=== PATIENT | female | born 1975 | race Caucasian/White ===

== ENCOUNTER → 2016-04-10 | Outpatient (CLI) | payer MEDICARE, MEDICAID ==
[~2016-04-10] MED LIST: /DULO30CA; /FENT25PA TD; /FENT50PA; /LAMO10TA; /MOXI40TA OR; /ONDA4TA PO; /PREG50CA PO; ABIL10TA OR; ACET20VL PO; ADDE20CA PO; ADDE30CA PO; ADVAIR; ADVAIR OR; ASPI81CH PO; ATEN50TA2 PO; ATIV1TAB2; ATIV1TAB2 OR; ATRIPLA; BOTULINUM INJ 100 UNITS (J0585) IM ONE; BUPR15TA; BUPR15TA OR; BUTA1CAP PO; BUTR10DI2 TOP; CALCTAB22 OR; CETI10TA; CETI10TA OR; CHROMIUM PICOLINATE; CLON0.5T PO; COMBIVIR PO; COMPAZINE; COQ1200C2 PO; DIAZ5TAB PO; DICL50TA2 PO; DIFL150T PO; DIPHENHIST; DIPHENHIST OR; FIORCAP7 PO; FIORICET; FIORICET OR; FIORTAB PO; FLEXERIL; GABA PO; GINS100C2 PO; GINSING OR; IBUP200T2 PO; IBUP600T OR; IMIT4KIT SC; IMIT50TA PO; IMIT6INJ; IMIT6INJ IJ; IMIT6INJ SC; ISENTRESS PO; LASI20TA; LASI20TA OR; LASI20TA PO; LINZ290C PO; LIOT5TAB PO; LITH150C PO; LORA1TAB PO; MAGN500T5 PO; MELA0.02 PO; MELA5TAB13 PO; MELOPOW; MELOPOW OR; MIREIUD IU; MORP10SU PR; MS C15TA5 OR; MS C200T PO; MULTCAP PO; N-ACCAP PO; OXYCO5TA PO; PAXI20TA OR; PREG50CA PO; PRIL20CA PO; PROBCAP4 PO; PROCHLORPERAZINE; PROCHLORPERAZINE OR; PROTPAK PO; PROV90AE; PROV90AE IN; Prochlorperazine PO; RHINOCORT; RIBO400T PO; ROZEREM; ROZEREM OR; SAVELLA; SAVELLA OR; SILVER PO; SING10TA31; SING10TA31 OR; SING4GRA PO; SOMA350T; SOMA350T PO; STRITAB PO; SUDA30TA; SUDA30TA OR; SUDA30TA PO; SUMA125TA; SYNT150T; SYNT150T OR; TENO1TAB PO; TOPA200T PO; TOPI200T; TOPI200T OR; TRAM50TA2; TRAM50TA2 PO; ULTR50TA PO; VICO5TAB; VICO5TAB OR; VICODINES TAB OR; VOLT1GEL EX; WELL100T2; XANA0.5T PO; ZANA4CAP; ZANA4CAP OR; ZINC220T2; ZOLO100T; ZOLO50TA PO; [UNRECOGNIZED DRUG - CODE] PO; [UNRECOGNIZED DRUG - OTHER]; [UNRECOGNIZED DRUG - OTHER] OR; [UNRECOGNIZED DRUG - OTHER] OR; [UNRECOGNIZED DRUG - OTHER] PO; [UNRECOGNIZED DRUG - OTHER] PO; ambien PO; diazePAM 5 MG TAB As Ordered ONE; oxyCODONE 5MG TAB As Ordered ONE; oxycodone PO; rozerem PO; topamax PO
--- NOTE | 2016-04-15 01:13 | ECWPNPC ---
PATIENT NAME: DEANDRA BREWER : 1975 GENDER: FEMALE VISIT DATE: 04/10/2016 DISCHARGE DATE: 04/10/16 1458 VISIT LOCKED DATE TIME: PHYSICIAN: DOLORES VILLARREAL RESOURCE: DOLORES VILLARREAL REASON FOR APPOINTMENT 1. BOTOX-MIGRAINES CURRENT MEDICATIONS TAKING CARISOPRODOL 350 MG TABLET 1 TABLET ORALLY Q 8 HRS NEEDED MDD=2, NOTES: 04/10/16@0600 TAKING BUTRANS 7.5 MCG/HR PATCH WEEKLY 1 PATCH TO SKIN TRANSDERMAL 1 PATCH Q 7 DAYS MDD 1 PATCH Q 7 DAYS, NOTES: 04/10/16 ON TAKING OXYCODONE HCL 5 MG TABLET 1 TABLET NEEDED ORALLY EVERY 6 HOURS NEEDED FOR PAIN MDD3, NOTES: 04/10/16@0200 TAKING IBUPROFEN 800 MG TABLET 1 TABLET ORALLY WITH FOOD THREE TIMES A DAY NEEDED FOR PAIN MDD3, NOTES: 04/10/16@0600 TAKING GENVOYA [phone] MG TABLET DIRECTED ORALLY ONCE DAILY, NOTES: 04/09/16@1999 TAKING CYTOMEL 10 MG TABLET 1 TABLET ON AN EMPTY STOMACH ORALLY ONCE A DAY, NOTES: 04/10/16@ 0600 TAKING SYNTHROID 150 MCG TABLET 1 TABLET ORALLY ONCE A DAY, NOTES: 04/10/15@ 0600 TAKING CLONAZEPAM 0.5 MG TABLET 1 TABLET ORALLY BID / MMD#2, NOTES: 04/10/16@0200 TAKING ADDERALL XR 30 MG CAPSULE EXTENDED RELEASE 24 HOUR 1 CAPSULE ORALLY DAILY, NOTES: 04/10/15 0600 TAKING OXYCODONE HCL 5 MG TABLET 1 TABLET ORALLY EVERY 6 -8 HRS PRN PAIN MDD=3, NOTES: 04/10/16@1999 TAKING ONDANSETRON 4 MG TABLET DISPERSIBLE 1 TABLET ON THE TONGUE AND ALLOW TO DISSOLVE ORALLY EVERY 8 HRS NEEDED, NOTES: UNKNOWN TAKING MIRENA 20 MCG/24HR INTRAUTERINE DEVICE INTRAUTERINE , NOTES: IN PLACE TAKING [id number] 50-300-40 MG CAPSULE 1 CAPSULE NEEDED ORALLY EVERY 6 HRS PRN, NOTES: 4-5 DAYS AGO TAKING SUDAFED 30 MG TABLET 1 TABLET NEEDED ORALLY EVERY 6 HRS PRN, NOTES: NONE LATELY TAKING SALINE NASAL SPRAY 0.65 % SOLUTION 2 DROPS IN EACH NOSTRIL NEEDED NASALLY EVERY 2 HRS, NOTES: NONE LATELY TAKING VITAMIN D (ERGOCALCIFEROL) 65843 UNIT CAPSULE 1 CAPSULE ORALLY WEEKLY, NOTES: 04/06/16@1500 TAKING ZYRTEC 1 TAB ORAL NEEDED, NOTES: NONE LATELY TAKING PATADAY 0.2 % SOLUTION DIRECTED OPHTHALMIC ONCE DAILY, NOTES: NONE LATELY TAKING QNASL 1 AEROSOL SPRAY DIRECTED NASALLY TWICE A DAY, NOTES: NONE LATELY TAKING KETOROLAC TROMETHAMINE 10 MG TABLET 1 TABLET NEEDED ORALLY EVERY 6 HRS PRN FOR PAIN, NOTES: NONE LATELY TAKING FLUCONAZOLE 150 MG TABLET TAKE ONE TABLET BY MOUTH WEEKLY NEEDED, NOTES: NONE LATELY TAKING BENADRYL 25 MG TABLET 1 TABLET NEEDED ORALLY BEFORE BEDTIME, NOTES: 05/04/16@1500 TAKING ATENOLOL 50 MG TABLET 1 TABLET ORALLY ONCE A DAY, NOTES: 04/10/16@0600 TAKING SINGULAIR 10 MG TABLET 1 TABLET IN THE EVENING ORALLY ONCE A DAY, NOTES: MONTHS AGO TAKING ZOLOFT 100 MG TABLET 2 ORALLY ONCE A DAY, NOTES: 04/09/16@2000 TAKING GABAPENTIN 100 MG CAPSULE ORALLY THREE TIMES DAILY, NOTES: @0600 TAKING TRAZODONE HCL 50 MG TABLET 1 TABLET AT BEDTIME NEEDED ORALLY ONCE A DAY, NOTES: 04/05/16@1000 NOT-TAKING SENOKOT S 8.6-50 MG TABLET 2 TABLET IN THE EVENING NEEDED ORALLY BEFORE BEDTIME NOT-TAKING DULCOLAX 5 MG TABLET DELAYED RELEASE 1 TABLET NEEDED ORALLY ONCE A DAY PRN, NOTES: NONE-NEW TODAY NOT-TAKING VALIUM 10 MG TABLET 1 TABLET NEEDED ORALLY 1 TAB 1HR PRE PROC. MDD1, NOTES: 11/26/15 1400 NOT-TAKING KETOROLAC TROMETHAMINE 10 MG TABLET 1 TABLET NEEDED ORALLY FOR PAIN EVERY 8 HRS MDD3 NOT-TAKING GABAPENTIN 100 MG CAPSULE DIRECTED ORALLY BEFORE BEDTIME NOT-TAKING MULTI FOR HER 1 TABLET 1 TAB ORALLY ONCE DAILY, NOTES: 1 WEEK AGO NOT-TAKING ADRENAL C FORMULA 30 MG TABLET 1 TAB ORALLY ONCE DAILY, NOTES: 11/26/15 28935 NOT-TAKING MULTI COMPLETE 1 _ 1 TAB ORALLY ONCE DAILY DISCONTINUED CETIRIZINE HCL 10 MG TABLET 1 TABLET ORALLY ONCE A DAY DISCONTINUED ATENOLOL 50 50MG TABLET DIRECTED ORAL DAILY DISCONTINUED ZOFRAN 8 MG TABLET 1 TABLET ORALLY ONCE A DAY DISCONTINUED GABAPENTIN 100 MG CAPSULE ORALLY DISCONTINUED GABAPENTIN 300 MG TABLET ORALLY MEDICATION LIST REVIEWED AND RECONCILED WITH THE PATIENT PAST MEDICAL HISTORY HIV POSITIVE 1997, TREATED WITH COMBIVIR DURING HER PREGNANCIES, ATRIPLA GAVE HER ABDOMINAL PAIN 09/[address] ROWAN FROM [facility] DISCONTINUED/ADERALL FOR ADD/ KATHRYN ANXIETY 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 ASSESSMENTS CHRONIC MIGRAINE WITHOUT AURA, NOT INTRACTABLE, WITHOUT STATUS MIGRAINOSUS - G43.709 (PRIMARY) PROCEDURES PN BOTOX INJECTIONS FIRST INJECTION PRE PROCEDURE DIAGNOSIS CHRONIC MIGRAINE HEADACHES. POST PROCEDURE DIAGNOSIS CHRONIC MIGRAINE HEADACHES. PROCEDURE BOTOX INJECTION AT THE HEAD, NECK AND SHOULDERS SURGEON DR. DOLORES VILLARREAL FEDERAL LAW CLERK NONE ANESTHESIA NONE PRE PROCEDURE NOTE THE PATIENT WITH HISTORY OF CHRONIC MIGRAINE HEADACHES. I EVALUATE THE PATIENT AND REVIEWED THE CHART. I WENT OVER THE RISKS, ALTERNATIVES, AND BENEFITS ASSOCIATED WITH THIS PROCEDURE. THE PATIENT WOULD LIKE TO PROCEED AND GIVE CONSENT TO PERFORMED THE PROCEDURE. THE PATIENT DENIES UNEXPLAINABLE WEIGHT LOSS, FEVER, CHILLS, OR NEW CHANGES IN URINARY OR BOWEL CONTROL. THE PATIENT EXPRESSED SUFFERING OF HEADACHES MORE THAN 16 DAYS IN A MONTH WITH A TOTAL OF 30 HEADACHES A MONTH. THESE HEADACHES LAST MORE THAN 4 HOURS PER DAY. THE PATIENT HAS USED THE MEDICATIONS LISTED IN THE CHART TO TREAT THE HEADACHES FOR MANY MONTHS AND THE HEADACHES PERSIST DESCRIBED ABOVE DESCRIPTION OF PROCEDURE THE PATIENTS WAS BROUGHT TO THE PROCEDURE ROOM AND PLACED IN THE SUPINE POSITION. I CHECKED LATERALITY AND THE AREAS WHERE THE PROCEDURE WAS GOING TO BE PERFORMED WITH THE PATIENT AND THE SUPPORTING STAFF AT THE MOMENT OF THE TIME OUT IN THE PROCEDURE ROOM. FOR THE PROCEDURE I USED A SOLUTION OF 5 UNITS OF BOTOX PER EACH 0.1 ML OF THE SOLUTION. I USED A 30-GAUGE NEEDLE TO INJECT THE SOLUTION AT THE SELECTED LOCATIONS. I INJECTED FIRST THE RIGHT AND LEFT AIR CONDITIONING SPECIALIST MUSCLES. THE LANDMARK FOR BOTH INJECTIONS WAS APPROXIMATELY 1 CM ABOVE THE SUPERIOR MEDIAL EDGE OF THE EYEBROW. AFTER THESE TWO INJECTIONS, I INJECTED THE PROCERUS MUSCLE AT THE MIDLINE POINT BETWEEN THESE FIRST TWO INJECTIONS. THEN I PROCEEDED TO INJECT THE RIGHT AND LEFT FRONTALIS MUSCLE. TWO INJECTIONS WERE DONE IN EACH SIDE. THE FIRST INJECTION WAS DONE APPROXIMATELY 2 CM ABOVE THE FIRST INJECTION OF THE AIR CONDITIONING SPECIALIST. THE SECOND INJECTION WAS DONE APPROXIMATELY 1.5 CM LATERAL TO THIS FIST INJECTION OF THE FRONTALIS OF EACH SIDE. AFTER THE INJECTIONS OVER THE FOREHEAD WERE DONE, THE PATIENT'S HEAD WAS TURNED TO THE LEFT SIDE AND WE STARTED TO WORK WITH THE RIGHT TEMPORALIS MUSCLE. FIRST INJECTION WAS DONE IN A VERTICAL LINE OF THE TRAGUS APPROXIMATELY 3 CM ABOVE THE TRAGUS. THE SECOND INJECTION WAS DONE APPROXIMATELY 2 CM ABOVE THE FIRST INJECTION. THE THIRD INJECTION WAS DONE APPROXIMATELY 1 CM FRONT ROBERTSON FROM THIS VERTICAL LINE CREATED AT THE LEVEL OF THE TRAGUS, JAIL BETWEEN THESE TWO INJECTIONS. THE FOURTH INJECTION WAS DONE APPROXIMATELY 1.5 CM BACK FROM THE SECOND INJECTION TO THE TEMPORALIS IN LINE TO THE MIDPORTION OF THE EAR. THEN, WE PROCEEDED TO INJECT THE LEFT TEMPORALIS MUSCLE. WE CLEANED THE AREA WITH ALCOHOL AND PROCEEDED TO PERFORM THE SAME FOR INJECTIONS DESCRIBED ABOVE BUT IN THE LEFT TEMPORALIS MUSCLE USING THE SAME LANDMARKS. AFTER THESE INJECTIONS WERE DONE, THE PATIENT WAS SEATED. FIRST, WE STARTED TO INJECT THE LEFT AND RIGHT OCCIPITALIS MUSCLE. I INJECTED AT THE FOLLOWING PLACES IN THE RIGHT AND LEFT MUSCLE. THE FIRST INJECTION WAS DONE AT THE MIDPOINT POSITION BETWEEN THE MASTOID PROCESS AND THE INION OF THE OCCIPITAL PROTUBERANCE. THE SECOND INJECTION WAS DONE APPROXIMATELY 1.5 CM SUPERIOR AND LATERAL OF THIS POINT. THE THIRD INJECTION WAS DONE APPROXIMATELY 1.5 CM SUPERIOR AND MEDIAL TO THIS FIRST INJECTION. THEN, I PROCEEDED TO INJECT THE RIGHT AND LEFT PARASPINAL MUSCLES. LANDMARK OF THE INJECTION WERE APPROXIMATELY: FIRST INJECTION 3 CM BELOW THE INION AND 1 CM LATERAL TO THE MIDLINE AND SECOND INJECTION AT EACH SIDE WAS DONE APPROXIMATELY 1.5 CM SUPERIOR AND LATERAL OF THE FIRST INJECTION. THE LAST GROUP OF INJECTIONS WAS DONE OVER THE RIGHT AND LEFT TRAPEZIUS MUSCLE OVER THE SHOULDERS AREA. THE FIRST INJECTION WAS DONE AT THE MIDPOINT BETWEEN THE INFLECTION POINT BETWEEN THE NECK AND SHOULDER AND THE ACROMION. THE SECOND AND THIRD INJECTIONS WERE DONE APPROXIMATELY 2.5 CM LATERAL AND MEDIAL FROM THIS FIRST INJECTION. SAME TARGETS WERE USED IN THE RIGHT AND LEFT SIDE. IN TOTAL, I INJECTED 155 UNITS OF BOTOX. PROCEDURE WAS DONE WITHOUT EVIDENCE OF PARESTHESIA, PNEUMOTHORAX, OR ANY COMPLICATIONS. THE PATIENT TOLERATED THE PROCEDURE VERY WELL. THE PATIENT WAS SENT TO THE RECOVERY ROOM FOR OBSERVATIONS. INJECTIONS WERE DONE AFTER CLEANING WITH ALCOHOL, USING ASEPTIC TECHNIQUES POST PROCEDURE NOTE THE PROCEDURE DONE WAS DISCUSSED WITH THE PATIENT. THE PATIENT WILL BE SEEN IN A FOLLOW UP IN THE NEXT FEW WEEKS. INSTRUCTIONS WERE GIVEN, QUESTIONS WERE ANSWERED, AND THE PATIENT EXPRESSED UNDERSTANDING AND AGREES WITH THE PLAN PROCEDURE CODES 92445 CHEMODENERV MUSC MIGRAINE FOLLOW UP 3 WEEKS ELECTRONICALLY SIGNED BY DOLORES VILLARREAL MD ON 04/14/2016 AT 03:44 PM EST DISCLAIMER : THIS IS A VISIT SUMMARY EXTRACTED FROM THE [employer] CHART. IT IS NOT A COPY OF THE [employer] PROGRESS NOTE. LESLIE
== END ==
LOC: M PAIN 14:00
PROVIDERS: ATTEND Anesthesiology
DX: G43.709 Chronic migraine without aura, not intractable, without status migrainosus (principal); B20 Human immunodeficiency virus [HIV] disease; E03.9 Hypothyroidism, unspecified; F33.9 Major depressive disorder, recurrent, unspecified; F41.9 Anxiety disorder, unspecified; K82.9 Disease of gallbladder, unspecified; G43.909 Migraine, unspecified, not intractable, without status migrainosus; B00.9 Herpesviral infection, unspecified; Z91.013 Allergy to seafood; Z88.8 Allergy status to other drugs, medicaments and biological substances; Z79.891 Long term (current) use of opiate analgesic; Z79.1 Long term (current) use of non-steroidal anti-inflammatories (NSAID)
CPT/HCPCS: 64615; J0585

== ENCOUNTER → 2016-04-16 | Outpatient (CLI) | payer MEDICARE, MEDICAID ==
[~2016-04-16] MED LIST changes: -BOTULINUM INJ 100 UNITS (J0585) IM ONE; +BUPIVACAINE HCL 0.25% 30 ML VIAL As Ordered ONE; +ISOVUE-M 300 61% 15ML VIAL (Q9967) As Ordered ONE; +LIDOCAINE 1% SDV INJ 30 ML VIAL As Ordered ONE; +OXYC-517 PO; -OXYCO5TA PO; +TRIAMCINOLONE ACETONIDE SUSP 40 MG/ML VIAL (J3301) As Ordered ONE
--- NOTE | 2016-04-16 21:06 | REP ---
Fluoroscopic guidance for sacral coccygeal injection: 04/16/2016. Clinical history: Low back pain, sacral pain. Findings: Two images from C-arm fluoroscopy provided to Dr. Alcaraz of the pain clinic for sacral coccygeal steroid injection. Needle projects over the left of midline of the lower sacrum near the coccygeal junction. On the second image contrast is seen streaming away from the needle. Fluoroscopy time: 4-seconds Signed by Osito Amaya MD 04/17/2016 09:29 A
--- NOTE | 2016-04-19 01:22 | ECWPNPC ---
PATIENT NAME: DEANDRA BREWER : 1975 GENDER: FEMALE VISIT DATE: 04/16/2016 DISCHARGE DATE: 04/16/161917 VISIT LOCKED DATE TIME: PHYSICIAN: DOLORES VILLARREAL RESOURCE: DOLORES VILLARREAL REASON FOR APPOINTMENT 1. SIJ HISTORY OF PRESENT ILLNESS HISTORY OF PRESENT ILLNESS: PAIN THE PATIENT DESCRIBES THE PAIN... FALL RISK SCREENING: SCREENING :NO FALLS IN THE PAST YEAR CURRENT MEDICATIONS TAKING CARISOPRODOL 350 MG TABLET 1 TABLET ORALLY Q 8 HRS NEEDED MDD=2, NOTES: 04/15/161999 1/2 TAB TAKING BUTRANS 15 MCG/HR PATCH WEEKLY 1 PATCH TO SKIN TRANSDERMAL 1 PATCH Q 7 DAYS MDD 1 PATCH Q 7 DAYS, NOTES: 04/15/16 ON TAKING OXYCODONE HCL 5 MG TABLET 1 TABLET NEEDED ORALLY EVERY 6 HOURS NEEDED FOR PAIN MDD3, NOTES: 04/16/16699 TAKING IBUPROFEN 800 MG TABLET 1 TABLET ORALLY WITH FOOD THREE TIMES A DAY NEEDED FOR PAIN MDD3, NOTES: 04/16/161499 TAKING GENVOYA [phone] MG TABLET DIRECTED ORALLY ONCE DAILY, NOTES: 04/15/161999 TAKING CYTOMEL 10 MG TABLET 1 TABLET ON AN EMPTY STOMACH ORALLY ONCE A DAY, NOTES: 04/16/16699 TAKING SYNTHROID 150 MCG TABLET 1 TABLET ORALLY ONCE A DAY, NOTES: 04/16/16699 TAKING CLONAZEPAM 0.5 MG TABLET 1 TABLET ORALLY BID / MMD#2, NOTES: 04/16/16699 TAKING ADDERALL XR 30 MG CAPSULE EXTENDED RELEASE 24 HOUR 1 CAPSULE ORALLY DAILY, NOTES: 04/16/16699 TAKING ONDANSETRON 4 MG TABLET DISPERSIBLE 1 TABLET ON THE TONGUE AND ALLOW TO DISSOLVE ORALLY EVERY 8 HRS NEEDED, NOTES: UNKNOWN TAKING MIRENA 20 MCG/24HR INTRAUTERINE DEVICE INTRAUTERINE , NOTES: IN PLACE TAKING SUDAFED 30 MG TABLET 1 TABLET NEEDED ORALLY EVERY 6 HRS PRN, NOTES: 3-4 WEEKS AGO TAKING SALINE NASAL SPRAY 0.65 % SOLUTION 2 DROPS IN EACH NOSTRIL NEEDED NASALLY EVERY 2 HRS, NOTES: NONE LATELY TAKING VITAMIN D (ERGOCALCIFEROL) 00419 UNIT CAPSULE 1 CAPSULE ORALLY WEEKLY, NOTES: 04/13/161999 TAKING ZYRTEC 1 TAB ORAL NEEDED, NOTES: NONE LATELY TAKING PATADAY 0.2 % SOLUTION DIRECTED OPHTHALMIC ONCE DAILY, NOTES: NONE LATELY TAKING [id number] 50-300-40 MG CAPSULE 1 CAPSULE NEEDED ORALLY EVERY 6 HRS PRN, NOTES: 04/16/16 1300 TAKING QNASL 1 AEROSOL SPRAY DIRECTED NASALLY TWICE A DAY, NOTES: NONE LATELY TAKING KETOROLAC TROMETHAMINE 10 MG TABLET 1 TABLET NEEDED ORALLY EVERY 6 HRS PRN FOR PAIN, NOTES: NONE LATELY TAKING FLUCONAZOLE 150 MG TABLET TAKE ONE TABLET BY MOUTH WEEKLY NEEDED, NOTES: 04/11/16 TAKING BENADRYL 25 MG TABLET 1 TABLET NEEDED ORALLY BEFORE BEDTIME, NOTES: 2 WEEKS AGO TAKING ATENOLOL 50 MG TABLET 1 TABLET ORALLY ONCE A DAY, NOTES: TAKING SINGULAIR 10 MG TABLET 1 TABLET IN THE EVENING ORALLY ONCE A DAY, NOTES: NONE RECENT TAKING ZOLOFT 100 MG TABLET 2 ORALLY ONCE A DAY, NOTES: 04/15/1619990 TAKING GABAPENTIN 100 MG CAPSULE ORALLY THREE TIMES DAILY, NOTES: 04/16/16 0700 TAKING TRAZODONE HCL 50 MG TABLET 1 TABLET AT BEDTIME NEEDED ORALLY ONCE A DAY, NOTES: 04/15/161999 TAKING MONTELUKAST SODIUM 10 MG TABLET 1 TABLET IN THE EVENING ORALLY ONCE A DAY PRN, NOTES: NONE RECENT NOT-TAKING SENOKOT S 8.6-50 MG TABLET 2 TABLET IN THE EVENING NEEDED ORALLY BEFORE BEDTIME NOT-TAKING DULCOLAX 5 MG TABLET DELAYED RELEASE 1 TABLET NEEDED ORALLY ONCE A DAY PRN, NOTES: NONE-NEW TODAY NOT-TAKING VALIUM 10 MG TABLET 1 TABLET NEEDED ORALLY 1 TAB 1HR PRE PROC. MDD1, NOTES: 11/26/15 1400 NOT-TAKING KETOROLAC TROMETHAMINE 10 MG TABLET 1 TABLET NEEDED ORALLY FOR PAIN EVERY 8 HRS MDD3 NOT-TAKING GABAPENTIN 100 MG CAPSULE DIRECTED ORALLY BEFORE BEDTIME NOT-TAKING MULTI FOR HER 1 TABLET 1 TAB ORALLY ONCE DAILY, NOTES: 1 WEEK AGO NOT-TAKING ADRENAL C FORMULA 30 MG TABLET 1 TAB ORALLY ONCE DAILY, NOTES: 11/26/15 62158 NOT-TAKING MULTI COMPLETE 1 _ 1 TAB ORALLY ONCE DAILY DISCONTINUED OXYCODONE HCL 5 MG TABLET 1 TABLET ORALLY EVERY 6 -8 HRS PRN PAIN MDD=3, NOTES: 04/10/16@2000 MEDICATION LIST REVIEWED AND RECONCILED WITH THE PATIENT PAST MEDICAL HISTORY HIV POSITIVE 1997, TREATED WITH COMBIVIR DURING HER PREGNANCIES, ATRIPLA GAVE HER ABDOMINAL PAIN 09/[address] [facility] [facility] [facility]/ KATHRYN ANXIETY 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 LEFT ACL RUPTURE MIGRAINE BACTERIAL VAGINOSIS UTI TEETH EXTRACTION IUD MERENA 04/2013 AT PLANNED [facility] HERPES SIMPLEX TYPE II IGG POSITIVE SEROLOGY 06/2011 HERPES ORALIS ALLERGIES SEAFOOD: HIVES: ALLERGY ABACAVIR SULFATE: HEADACHE,MIGRAINE,NAUSEA: ALLERGY METAXALONE: WEIGHT GAIN, FATIGUE: SIDE EFFECTS SUMATRIPTAN: PANIC ATTACK, REBOUND HEADACHE: SIDE EFFECTS LYRICA: SWELLING IN LEG: SIDE EFFECTS SOCIAL HISTORY GENERAL: TOBACCO USE ARE YOU A:NONSMOKER ARE YOU A:NONSMOKER LEARNING BARRIERS / SPECIAL NEEDS ORIENTED TO PLAN OF CARE: PATIENT, PAIN MANAGEMENT PATIENT, ORIENTED TO PLAN OF CARE: PATIENT, PAIN MANAGEMENT PATIENT, ORIENTED TO PLAN OF CARE: PATIENT, PAIN MANAGEMENT PATIENT, ORIENTED TO PLAN OF CARE: PATIENT, PAIN MANAGEMENT PATIENT. NEW PATIENT PAIN DIARY TODAY'S VISITNOTES FROM 0-10, WHAT LEVEL IS YOUR PAIN TODAY?0 TODAY'S VISITNOTES FROM 0-10, WHAT LEVEL IS YOUR PAIN TODAY?0 PAIN CLINIC PFS, CLERGY, PUBLIC HEALTH REFERRALS PFS REFERRAL NEEDED?NO CLERGY REFERRAL NEEDED?NO PUBLIC HEALTH REFERRAL NEEDED?NO WAS THE PROVIDER NOTIFIED OF ANY PERTINENT INFO?NO PFS REFERRAL NEEDED?NO CLERGY REFERRAL NEEDED?NO PUBLIC HEALTH REFERRAL NEEDED?NO WAS THE PROVIDER NOTIFIED OF ANY PERTINENT INFO?NO PFS REFERRAL NEEDED?NO CLERGY REFERRAL NEEDED?NO PUBLIC HEALTH REFERRAL NEEDED?NO WAS THE PROVIDER NOTIFIED OF ANY PERTINENT INFO?NO PFS REFERRAL NEEDED?NO CLERGY REFERRAL NEEDED?NO PUBLIC HEALTH REFERRAL NEEDED?NO WAS THE PROVIDER NOTIFIED OF ANY PERTINENT INFO?NO REVIEW OF SYSTEMS CONSTITUTIONAL: ANY CHANGE IN YOUR MEDICAL CONDITION? NO . CHILLS NO . FEVER NO . INFECTION: DO YOU HAVE NEW INFECTIONS? NO . DO YOU HAVE HISTORY OF MRSA? NO . MUSCULOSKELETAL: ANY NEW PATTERNS OF PAIN OR NUMBNESS? YES, INCREASED PAIN, PINCHING FEELING, TINGLING RIGHT THIGH . GASTROENTEROLOGY: ANY NEW CHANGE IN BOWEL CONTROL? NO . GENITOURINARY: ANY NEW CHANGE IN BLADDER CONTROL? NO . IS THERE A CHANCE YOU COULD BE ? NO . HEMATOLOGY/LYMPH: DO YOU TAKE ANY BLOOD THINNERS? (FOR EXAMPLE- COUMADIN, PLAVIX, AGGRENOX, PLATEL, PRADAXA, OR XARELTO) NO . WHEN WAS YOUR LAST DOSE? DATE: TIME: . NEUROLOGY: HAVE YOU FALLEN IN THE PAST 6 MONTHS? YES, SEVERAL TIMES INJURYING ENTIRE BACK . ANY NEW EXTREMITY NUMBNESS OR WEAKNESS? YES TAIL BONE AND RIGHT THIGH . CARDIOLOGY: DO YOU HAVE A PACEMAKER OR DEFIBRILLATOR? NO . RESPIRATORY: HAVE YOU BEEN SICK IN THE PAST WEEK? NO . FEVER NO . FLU LIKE SYMPTOMS? NO . COUGH NO . INTEGUMENTARY: DO YOU HAVE ANY RASHES OR OPEN SORES? NO . ALLERGIC/IMMUNO: ARE YOU ALLERGIC TO SHELLFISH OR IV DYE? YES SEA FOOD--HIVES, THROAT ITCHY AND SLIGHT SWELLING . ANY NEW ALLERGIES? NO . PSYCHIATRIC: DO YOU HAVE THOUGHTS OF HURTING YOURSELF OR SOMEONE ELSE? NO . ARE YOU ABUSED, NEGLECTED, OR IN AN UNSAFE ENVIRONMENT? NO . ENDOCRINOLOGY: ARE YOU DIABETIC? NO . OTHER: DO YOU NEED ANY PRESCRIPTIONS? NO . IF YES, PLEASE LIST: ____ . ANY NEW PROBLEMS WITH YOUR MEDICATIONS? NO . WHEN DID YOU LAST EAT? ____04/15/16 2100 . WHEN DID YOU LAST DRINK? ____04/16/16 1500 . WHAT DID YOU LAST DRINK? ____WATER . NAME OF PERSON DRIVING YOU HOME? ___MANDY . DO YOU HAVE ANY OTHER QUESTIONS OR CONCERNS NO . REVIEWED BY: PROVIDER: . VITAL SIGNS WT 183.4 LBS, HT 66 IN, BMI 29.60 INDEX, BP R ARM 118/65, REPEAT BP L ARM 130/57, HR 60 /MIN, RR 18 /MIN, TEMP 96.0 F, OXYGEN SAT % 96, NA INITIALS TL 1619, REVIEWED BY: AD. ASSESSMENTS SPINAL ENTHESOPATHY, SACRAL AND SACROCOCCYGEAL REGION - M46.08 (PRIMARY) TREATMENT OTHERS REFILL GABAPENTIN CAPSULE, 100 MG, 1 CAP, ORALLY, THREE TIMES DAILY, 30 DAY(S), 90, REFILLS 2, NOTES: 04/16/16 0700 NOTES: PREPROCEDURE DIAGNOSIS:INFLAMMATION OF THE SACROCOCCYGEAL LIGAMENT.COCCYDYNIA.POSTPROCEDURE DIAGNOSIS:INFLAMMATION OF THE SACROCOCCYGEAL LIGAMENT.COCCYDYNIA.PROCEDURE: INJECTION OF THE RIGHT AND LEFT SACROCOCCYGEAL LIGAMENT. SURGEON: DR. DOLORES VILLARREAL-[facility] HEALTHANESTHESIA: LOCAL.PREOPERATIVE NOTE: THE PATIENT HAS HISTORY OF LOW BACK PAIN. I EVALUATED THE PATIENT AND REVIEWED THE CHART. WE BOTH AGREE ON INJECTING OVER THE SACROCOCCYGEAL LIGAMENT. THE PATIENT IS AWARE OF THE POTENTIAL COMPLICATIONS WHICH INCLUDE INFECTIONS, VISCERAL PUNCTURE, INCLUDING RECTAL PUNCTURE AMONG OTHERS. I DISCUSSED ALTERNATIVES AND THE PATIENT EXPRESSED THAT SHE WOULD LIKE TO MOVE FORWARD. THE PATIENT DENIES UNEXPLAINABLE, WEIGHT LOSS, FEVER, CHILLS, OR CHANGES IN URINARY OR BOWEL CONTROL. DESCRIPTION OF PROCEDURE: AFTER CONSENT WAS TAKEN, THE PATIENT WAS BROUGHT TO THE PROCEDURE ROOM AND PLACED IN THE PRONE POSITION. THE LUMBOSACRAL AREA WAS CLEANED WITH CHLORAPREP SOLUTION AND DRAPED ASEPTICALLY. THE PROCEDURE WAS DONE UNDER STERILE CONDITIONS. UNDER FLUOROSCOPIC GUIDANCE, THE TARGET WAS SELECTED AT THE RIGHT AND LEFT SACROCOCCYGEAL LIGAMENT. LIDOCAINE WAS USED TO NUMB THE SKIN AND THE SUBCUTANEOUS TISSUE BELOW IT. A 25 NEEDLE WAS ADVANCED UNTIL WE REACHED THE RIGHT AND LEFT SACROCOCCYGEAL LIGAMENT. I DID AP AND LATERAL VIEWS. ISOVUE M DYE 30%, 1/4 ML, WAS INJECTED SHOWING ADEQUATE SPREAD OF THE DYE. THEN A SOLUTION OF 30 ML OF BUPIVACAINE 0.125% WITH KENALOG 30 MG WAS INJECTED OVER THE AFFECTED STRUCTURE. THERE WAS NO EVIDENCE OF BLOOD, PARESTHESIA OR CEREBROSPINAL FLUID. NO EVIDENCE OF VACUUM PHENOMENON OR VISCERAL PUNCTURE. THE PATIENT WAS SENT TO THE RECOVERY ROOM WHERE SHE WAS MOVING HER EXTREMITIES AND DOING WELL. THERE WERE NO COMPLICATIONS DURING THE PROCEDURE. FLUOROSCOPY TIME WAS 4 SECONDS. POSTOPERATIVE NOTE: I DISCUSSED ALTERNATIVES WITH THE PATIENT. I AM LOOKING FOR LONG LASTING PAIN RELIEF WITH THIS INTERVENTION. INSTRUCTIONS WERE GIVEN. QUESTIONS WERE ANSWERED. THE PATIENT REPORTS UNDERSTANDING AND AGREES WITH THE PLAN. THERE WERE NO COMPLICATIONS DURING THE PROCEDURE. I, LIZ FIGUEROA, DOCUMENTED THE ABOVE INFORMATION ACTING A SCRIBE FOR DR. VILLARREAL. I, DR. VILLARREAL, HAVE REVIEWED THE ABOVE DOCUMENT, SCRIBED BY LIZ IFGUEROA, AND I VERIFY THAT IT IS ACCURATE. DIAGNOSTIC IMAGING [facility] FLUORO GUIDANCE (PAIN)[id number] PROCEDURE CODES 76666 INJ TENDON SHEATH/LIGAMENT 6045F RADXPS IN END [id number] PXD FOLLOW UP 3 WEEKS ELECTRONICALLY SIGNED BY DOLORES VILLARREAL MD ON 04/18/2016 AT 06:18 PM EST DISCLAIMER : THIS IS A VISIT SUMMARY EXTRACTED FROM THE [employer] CHART. IT IS NOT A COPY OF THE [employer] PROGRESS NOTE. LESLIE
== END ==
LOC: M PAIN 15:40
PROVIDERS: ATTEND Anesthesiology
DX: M46.08 Spinal enthesopathy, sacral and sacrococcygeal region (principal); M54.9 Dorsalgia, unspecified; Z79.891 Long term (current) use of opiate analgesic; Z79.899 Other long term (current) drug therapy; Z91.013 Allergy to seafood; Z88.8 Allergy status to other drugs, medicaments and biological substances
CPT/HCPCS: 20550; 77002; J3301; Q9967

== ENCOUNTER → 2016-05-01 | Outpatient (CLI) | payer MEDICARE, MEDICAID ==
[~2016-05-01] MED LIST changes: -BUPIVACAINE HCL 0.25% 30 ML VIAL As Ordered ONE; -ISOVUE-M 300 61% 15ML VIAL (Q9967) As Ordered ONE; -LIDOCAINE 1% SDV INJ 30 ML VIAL As Ordered ONE; -TRIAMCINOLONE ACETONIDE SUSP 40 MG/ML VIAL (J3301) As Ordered ONE; -diazePAM 5 MG TAB As Ordered ONE; -oxyCODONE 5MG TAB As Ordered ONE
--- NOTE | 2016-05-12 00:32 | ECWPNPC ---
PATIENT NAME: DEANDRA BREWER : 1975 GENDER: FEMALE VISIT DATE: 05/01/2016 DISCHARGE DATE: 05/01/16 1215 VISIT LOCKED DATE TIME: PHYSICIAN: DOLORES VILLARREAL RESOURCE: DOLORES VILLARREAL REASON FOR APPOINTMENT 1. POST INJECTION/ BACK/NECK HISTORY OF PRESENT ILLNESS HISTORY OF PRESENT ILLNESS: PAIN THE PATIENT DESCRIBES THE PAIN... 41 YEAR OLD FEMALE PATIENT WITH HISTORY OF CHRONIC BACK AND NECK PAIN. PATIENT DESCRIBES THE PAIN ACHING, SHARP, STABBING, TENDER, THROBBING, SORE, SHOOTING, AND IT COMES AND GOES WITH A PAIN SCORE OF 8-10/10. PATIENT RECEIVED A BOTOX INJECTION ON 04/10/2016 AND STATES THAT HER HEADACHES ARE FAR LESS INTENSE NOW AND SAFE A DECREASE IN THE NUMBER OF HEADACHES SHE GETS BY HALF. PATIENT RECEIVED A SACROCOCCYGEAL LIGAMENT INJECTION ON 04/16/2016 AND STATES THAT IT DID HELP WITH SOME OF THE PAIN. PATIENT REPORTS THAT SOMETIMES SHE DOES STILL HAVE DIFFICULTIES SLEEP AT NIGHT. PATIENT REPORTS THAT SOMA, BUTRANS PATCH, AND GABAPENTIN APPEARS TO WORK GREAT A COMBINATION. PATIENT STATES THAT WHEN SHE WALKS HER LEGS FEEL LIKE JELLY AND HER LEGS SHAKE. PATIENT REPORTS THAT SHE HAS A LOT OF STRESS AT HOME. PATIENT DENIES UNEXPLAINABLE WEIGHT LOSS, FEVER, CHILLS, NEW CHANGES ON HER URINARY OR BOWEL CONTROL. FALL RISK SCREENING: SCREENING :NO FALLS IN THE PAST YEAR CURRENT MEDICATIONS TAKING CARISOPRODOL 350 MG TABLET 1 TABLET ORALLY Q 8 HRS NEEDED MDD=2 TAKING BUTRANS 15 MCG/HR PATCH WEEKLY 1 PATCH TO SKIN TRANSDERMAL 1 PATCH Q 7 DAYS MDD 1 PATCH Q 7 DAYS TAKING OXYCODONE HCL 5 MG TABLET 1 TABLET NEEDED ORALLY EVERY 6 HOURS NEEDED FOR PAIN MDD3 TAKING IBUPROFEN 800 MG TABLET 1 TABLET ORALLY WITH FOOD THREE TIMES A DAY NEEDED FOR PAIN MDD3 TAKING GENVOYA [phone] MG TABLET DIRECTED ORALLY ONCE DAILY TAKING CYTOMEL 10 MG TABLET 1 TABLET ON AN EMPTY STOMACH ORALLY ONCE A DAY TAKING SYNTHROID 150 MCG TABLET 1 TABLET ORALLY ONCE A DAY TAKING CLONAZEPAM 0.5 MG TABLET 1 TABLET ORALLY BID / MMD#2 TAKING ADDERALL XR 30 MG CAPSULE EXTENDED RELEASE 24 HOUR 1 CAPSULE ORALLY DAILY TAKING ONDANSETRON 4 MG TABLET DISPERSIBLE 1 TABLET ON THE TONGUE AND ALLOW TO DISSOLVE ORALLY EVERY 8 HRS NEEDED TAKING MIRENA 20 MCG/24HR INTRAUTERINE DEVICE INTRAUTERINE , NOTES: IN PLACE TAKING SUDAFED 30 MG TABLET 1 TABLET NEEDED ORALLY EVERY 6 HRS PRN TAKING SALINE NASAL SPRAY 0.65 % SOLUTION 2 DROPS IN EACH NOSTRIL NEEDED NASALLY EVERY 2 HRS TAKING VITAMIN D (ERGOCALCIFEROL) 58026 UNIT CAPSULE 1 CAPSULE ORALLY WEEKLY TAKING ZYRTEC 1 TAB ORAL NEEDED, NOTES: NONE LATELY TAKING PATADAY 0.2 % SOLUTION DIRECTED OPHTHALMIC ONCE DAILY, NOTES: NONE LATELY TAKING [id number] 50-300-40 MG CAPSULE 1 CAPSULE NEEDED ORALLY EVERY 6 HRS PRN TAKING QNASL 1 AEROSOL SPRAY DIRECTED NASALLY TWICE A DAY, NOTES: NONE LATELY TAKING KETOROLAC TROMETHAMINE 10 MG TABLET 1 TABLET NEEDED ORALLY EVERY 6 HRS PRN FOR PAIN, NOTES: NONE LATELY TAKING FLUCONAZOLE 150 MG TABLET TAKE ONE TABLET BY MOUTH WEEKLY NEEDED TAKING BENADRYL 25 MG TABLET 1 TABLET NEEDED ORALLY BEFORE BEDTIME TAKING ATENOLOL 50 MG TABLET 1 TABLET ORALLY ONCE A DAY TAKING TRAZODONE HCL 50 MG TABLET 1 TABLET AT BEDTIME NEEDED ORALLY ONCE A DAY TAKING MONTELUKAST SODIUM 10 MG TABLET 1 TABLET IN THE EVENING ORALLY ONCE A DAY PRN, NOTES: NONE RECENT TAKING GABAPENTIN 100 MG CAPSULE ORALLY THREE TIMES DAILY TAKING ZOLOFT 100 MG TABLET 2 ORALLY ONCE A DAY NOT-TAKING SENOKOT S 8.6-50 MG TABLET 2 TABLET IN THE EVENING NEEDED ORALLY BEFORE BEDTIME NOT-TAKING DULCOLAX 5 MG TABLET DELAYED RELEASE 1 TABLET NEEDED ORALLY ONCE A DAY PRN NOT-TAKING VALIUM 10 MG TABLET 1 TABLET NEEDED ORALLY 1 TAB 1HR PRE PROC. MDD1 NOT-TAKING KETOROLAC TROMETHAMINE 10 MG TABLET 1 TABLET NEEDED ORALLY FOR PAIN EVERY 8 HRS MDD3 NOT-TAKING GABAPENTIN 100 MG CAPSULE DIRECTED ORALLY BEFORE BEDTIME NOT-TAKING MULTI FOR HER 1 TABLET 1 TAB ORALLY ONCE DAILY NOT-TAKING ADRENAL C FORMULA 30 MG TABLET 1 TAB ORALLY ONCE DAILY NOT-TAKING MULTI COMPLETE 1 _ 1 TAB ORALLY ONCE DAILY MEDICATION LIST REVIEWED AND RECONCILED WITH THE PATIENT PAST MEDICAL HISTORY HIV POSITIVE 1997, TREATED WITH COMBIVIR DURING HER PREGNANCIES, ATRIPLA GAVE HER ABDOMINAL PAIN 09/[address] ROWAN FROM [facility] PAXIL DISCONTINUED/ADERALL FOR ADD/ KATHRYN ANXIETY 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 LEFT ACL RUPTURE MIGRAINE BACTERIAL VAGINOSIS UTI TEETH EXTRACTION IUD TERRELLNA 04/2013 AT [facility]ANNED [facility] HERPES SIMPLEX TYPE II IGG POSITIVE SEROLOGY 06/2011 HERPES ORALIS ALLERGIES SEAFOOD: HIVES: ALLERGY ABACAVIR SULFATE: HEADACHE,MIGRAINE,NAUSEA: ALLERGY METAXALONE: WEIGHT GAIN, FATIGUE: SIDE EFFECTS SUMATRIPTAN: PANIC ATTACK, REBOUND HEADACHE: SIDE EFFECTS LYRICA: SWELLING IN LEG: SIDE EFFECTS SURGICAL HISTORY D & C CHOLECYSTECTOMY TUBAL LIGATION LEFT KNEE SCOPE FAMILY HISTORY NO FAMILY HISTORY DOCUMENTED. SOCIAL HISTORY GENERAL: TOBACCO USE ARE YOU A:NONSMOKER LEARNING BARRIERS / SPECIAL NEEDS ORIENTED TO PLAN OF CARE: PATIENT, PAIN MANAGEMENT PATIENT, ORIENTED TO PLAN OF CARE: PATIENT, PAIN MANAGEMENT PATIENT. NEW PATIENT PAIN DIARY TODAY'S VISITNOTES FROM 0-10, WHAT LEVEL IS YOUR PAIN TODAY?0 PAIN CLINIC PFS, CLERGY, PUBLIC HEALTH REFERRALS PFS REFERRAL NEEDED?NO CLERGY REFERRAL NEEDED?NO PUBLIC HEALTH REFERRAL NEEDED?NO WAS THE PROVIDER NOTIFIED OF ANY PERTINENT INFO?YES REVIEWED BY: DS. MOVED ABOUT 2 WEEKS AGO. HOSPITALIZATION/MAJOR DIAGNOSTIC PROCEDURE RELATED TO SURGERY REVIEW OF SYSTEMS CONSTITUTIONAL: ANY CHANGE IN YOUR MEDICAL CONDITION? NO . CHILLS NO . FEVER NO . INFECTION: DO YOU HAVE NEW INFECTIONS? NO . DO YOU HAVE HISTORY OF MRSA? NO . MUSCULOSKELETAL: ANY NEW PATTERNS OF PAIN OR NUMBNESS? YES, PT STATES THAT SHE IS HAVING PAIN IN RIGHT LEG, RIGHT THIGH, INTERMITTENT, STABBING SHARP PAIN, HAPPENING SINCE FEBRUARY. . GASTROENTEROLOGY: ANY NEW CHANGE IN BOWEL CONTROL? NO . GENITOURINARY: ANY NEW CHANGE IN BLADDER CONTROL? NO . IS THERE A CHANCE YOU COULD BE ? NO . HEMATOLOGY/LYMPH: DO YOU TAKE ANY BLOOD THINNERS? (FOR EXAMPLE- COUMADIN, PLAVIX, AGGRENOX, PLATEL, PRADAXA, OR XARELTO) NO . WHEN WAS YOUR LAST DOSE? DATE: TIME: . NEUROLOGY: HAVE YOU FALLEN IN THE PAST 6 MONTHS? NO . ANY NEW EXTREMITY NUMBNESS OR WEAKNESS? NO . CARDIOLOGY: DO YOU HAVE A PACEMAKER OR DEFIBRILLATOR? NO . RESPIRATORY: HAVE YOU BEEN SICK IN THE PAST WEEK? NO . FEVER NO . FLU LIKE SYMPTOMS? NO . COUGH NO . INTEGUMENTARY: DO YOU HAVE ANY RASHES OR OPEN SORES? YES, PT HAS CUT ON LEFT WRIST THAT IS HEALING, PT STATES THAT SHE WAS TAPPING ON GLASS AT HOME AND GLASS BROKE. HAD GLASS SPLINTERS ALL OVER HAND, CLEANSED INDEPENDENTLY, DID NOT REPORT TO ED, SITE VERY EDEMATOUS, MILD REDNESS NOTED, NO DRAINAGE NOTED. . ALLERGIC/IMMUNO: ARE YOU ALLERGIC TO SHELLFISH OR IV DYE? NO . ANY NEW ALLERGIES? NO . PSYCHIATRIC: DO YOU HAVE THOUGHTS OF HURTING YOURSELF OR SOMEONE ELSE? NO . ARE YOU ABUSED, NEGLECTED, OR IN AN UNSAFE ENVIRONMENT? NO . ENDOCRINOLOGY: ARE YOU DIABETIC? NO . OTHER: DO YOU NEED ANY PRESCRIPTIONS? NO . IF YES, PLEASE LIST: ____ . ANY NEW PROBLEMS WITH YOUR MEDICATIONS? NO . WHEN DID YOU LAST EAT? ____ . WHEN DID YOU LAST DRINK? ____ . WHAT DID YOU LAST DRINK? ____ . NAME OF PERSON DRIVING YOU HOME? ____ . DO YOU HAVE ANY OTHER QUESTIONS OR CONCERNS NO . REVIEWED BY: PROVIDER: DOLORES VILLARREAL MD . VITAL SIGNS WT 173.6 LBS, HT 66 IN, BMI 28.02 INDEX, BP 118/91 MM HG, HR 86 /MIN, RR 16 /MIN, TEMP 97.0 F, OXYGEN SAT % 98, SAFE IN ENV? (Y/N) Y, NA INITIALS TL 0958, REVIEWED BY: REENA. EXAMINATION : PATIENT IS ALERT O X 3 AND COOPERATIVE. PATIENT USED A WALKER TO AMBULATE TODAY, AND HER LEGS WERE SHAKING. PATIENT HAS TENDERNESS IN THE SHOULDER. THERE IS ALSO TENDERNESS IN THE CERVICAL PRESPINAL MUSCLE GROUP. PATIENT HAS WEAKNESS IN THE LOWER EXTREMITIES. ASSESSMENTS LOW BACK PAIN - M54.5 (PRIMARY) CERVICALGIA - M54.2 TREATMENT LOW BACK PAIN NOTES: WE DISCUSSED SEVERAL ISSUES WITH MS. BREWER'S PAIN MANAGEMENT CASE. AT THIS TIME I ADVISED THE PATIENT TO DISCUSS THE WEAKNESS IN HER LOWER EXTREMITIES WITH HER NEUROLOGIST. PATIENT WILL CONTINUE ON THE SAME MEDICATION REGIMEN BEFORE WITH THE EXCEPTION OF GABAPENTIN, I WILL START THE PATIENT ON A HIGHER DOSAGE. I ADVISED PATIENT TO INCREASE GABAPENTIN EVERY 4 DAYS. PATIENT BROUGHT IN HER MEDICATION BOTTLES TODAY. UTOX ORDERED ON 12/17/2015 SHOWS CONSISTENT RESULTS. PATIENT TO FOLLOW UP WITH ME IN 4 WEEKS. INSTRUCTIONS WERE GIVEN, QUESTIONS WERE ANSWERED, PATIENT REPORTS UNDERSTANDING AND AGREES WITH THE PLAN. I, KING CARR, DOCUMENTED THE ABOVE INFORMATION ACTING A SCRIBE FOR DR. VILLARREAL. I HAVE REVIEWED THE ABOVE DOCUMENT, WRITTEN BY KING HARRISON AND I VERIFY THAT IT IS ACCURATE. ,. OTHERS REFILL OXYCODONE HCL TABLET, 5 MG, 1 TABLET NEEDED, ORALLY, EVERY 6 HOURS NEEDED FOR PAIN MDD3, 30 DAYS, 90, REFILLS 0 REFILL CARISOPRODOL TABLET, 350 MG, 1 TABLET, ORALLY, Q 8 HRS NEEDED MDD=2, 30 DAY(S), 60, REFILLS 0 REFILL BUTRANS PATCH WEEKLY, 15 MCG/HR, 1 PATCH TO SKIN, TRANSDERMAL, 1 PATCH Q 7 DAYS MDD 1 PATCH Q 7 DAYS, 30 DAY(S), 4, REFILLS 0 REFILL IBUPROFEN TABLET, 800 MG, 1 TABLET, ORALLY WITH FOOD, THREE TIMES A DAY NEEDED FOR PAIN MDD3, 30 DAY(S), 90, REFILLS 2 START GABAPENTIN CAPSULE, 100 MG, DIRECTED, ORALLY, 2 CAPSULES TID FOR PAIN MDD6, 30 DAY(S), 180, REFILLS 1 PROCEDURE CODES FA211 ESTABILISHED PATIENT [facility] FACILITY CHARGE G8730 PAIN ASSESS POS TOOL F/U PLAN DOC G8427 DOC MEDS VERIFIED W/PT OR RE FOLLOW UP 4 WEEKS ELECTRONICALLY SIGNED BY DOLORES VILLARREAL MD ON 05/11/2016 AT 07:55 PM EST DISCLAIMER : THIS IS A VISIT SUMMARY EXTRACTED FROM THE [employer] CHART. IT IS NOT A COPY OF THE [employer] PROGRESS NOTE. MTDD
== END ==
LOC: M PAIN 09:20
PROVIDERS: ATTEND Anesthesiology
DX: Z09 Encounter for follow-up examination after completed treatment for conditions other than malignant neoplasm (principal); G89.29 Other chronic pain; M54.5 Low back pain; M54.2 Cervicalgia; B20 Human immunodeficiency virus [HIV] disease; E03.9 Hypothyroidism, unspecified; F32.9 Major depressive disorder, single episode, unspecified; F41.9 Anxiety disorder, unspecified; J30.89 Other allergic rhinitis; G43.909 Migraine, unspecified, not intractable, without status migrainosus; B00.9 Herpesviral infection, unspecified; Z91.013 Allergy to seafood; Z88.8 Allergy status to other drugs, medicaments and biological substances; Z79.891 Long term (current) use of opiate analgesic; Z79.1 Long term (current) use of non-steroidal anti-inflammatories (NSAID); Z79.899 Other long term (current) drug therapy

== ENCOUNTER 2016-07-13 19:55 | Emergency (ER) | payer MEDICARE, MEDICAID ==
[~2016-07-13] VITALS: Ht 167.6 cm; Wt 90.3 kg
[2016-07-13] MEDS ORDERED: NEUR600T PO (20:28)
[2016-07-13] MEDS ORDERED: ATIV1TAB7 PO (20:28)
[2016-07-13] MEDS ORDERED: BUTR1DIS TD (20:29)
[2016-07-13] MEDS ORDERED: TRAZ50TA4 PO (20:29)
[2016-07-13] MEDS ORDERED: SERT50TA PO (20:29)
[2016-07-14 00:35] VITALS: BP 110/59
[2016-07-14] MEDS ORDERED: DOXY-278 PO (00:40)
== END 2016-07-14 00:56 | disposition home or self-care (01) ==
LOC: M ED 21:12
DX: J06.9 Acute upper respiratory infection, unspecified (principal); H65.01 Acute serous otitis media, right ear; B20 Human immunodeficiency virus [HIV] disease; E03.9 Hypothyroidism, unspecified; F41.9 Anxiety disorder, unspecified; F33.9 Major depressive disorder, recurrent, unspecified; Z79.899 Other long term (current) drug therapy; Z97.5 Presence of (intrauterine) contraceptive device; J30.9 Allergic rhinitis, unspecified; Z88.8 Allergy status to other drugs, medicaments and biological substances

== ENCOUNTER → 2016-07-14 | Outpatient (CLI) | payer MEDICARE, MEDICAID ==
[~2016-07-14] MED LIST changes: +ATIV1TAB7 PO; +BUTR1DIS TD; +DOXY-278 PO; +NEUR600T PO; +SERT50TA PO; +TRAZ50TA4 PO
--- NOTE | 2016-07-20 23:05 | ECWPNPC ---
PATIENT NAME: DEANDRA BREWER : 1975 GENDER: FEMALE VISIT DATE: 07/14/2016 DISCHARGE DATE: 07/14/16 1647 VISIT LOCKED DATE TIME: PHYSICIAN: DOLORES VILLARREAL RESOURCE: DOLORES VILLARRAEL REASON FOR APPOINTMENT 1. NECK AND BACK PAIN HISTORY OF PRESENT ILLNESS HISTORY OF PRESENT ILLNESS: PAIN THE PATIENT DESCRIBES THE PAIN... 41 YEAR OLD FEMALE PATIENT WITH HISTORY OF CHRONIC NECK AND BACK PAIN. PATIENT DESCRIBES THE PAIN ACHING, BURNING, SHARP, STABBING, TENDER, THROBBING, SORE, SHOOTING, AND HAVING IT ALL THE TIME WITH A PAIN SCORE OF 8.5/10. PATIENT RECEIVED A SACROCOCCYGEAL INJECTION ON 04/16/16 AND REPORTS THAT FOR 3 WEEKS SHE HAD INCREASED MOBILITY AND FUNCTIONALITY WITH A DECREASE IN PAIN. CURRENTLY THE PATIENT IS USING SOMA, BUTRANS PATCH, OXYCODONE, AND GABAPENTIN. PATIENT REPORTS GABAPENTIN MAKING HER BODY SWELL AND SHE IS UNSURE WHY. PATIENT RECEIVED A BOTOX INJECTION FOR MIGRAINES ON 04/10/16 AND STATES THAT HER HEADACHES HAVE DECREASED SIGNIFICANTLY AND ONLY REPORTS HAVING ABOUT 3 MIGRAINES A MONTH. PATIENT STATES THAT ANY TYPE OF ACTIVITY INCREASES THE PAIN IN HER NECK AND BACK. PATIENT DENIES UNEXPLAINABLE WEIGHT LOSS, FEVER, CHILLS, NEW CHANGES ON HER URINARY OR BOWEL CONTROL. FALL RISK SCREENING: SCREENING :NO FALLS IN THE PAST YEAR CURRENT MEDICATIONS TAKING GABAPENTIN 100 MG CAPSULE DIRECTED ORALLY 2 CAPSULES TID FOR PAIN MDD6, NOTES: TAKING 600MG/DAY TAKING GENVOYA [phone] MG TABLET DIRECTED ORALLY ONCE DAILY TAKING CYTOMEL 10 MG TABLET 1 TABLET ON AN EMPTY STOMACH ORALLY ONCE A DAY TAKING SYNTHROID 150 MCG TABLET 1 TABLET ORALLY ONCE A DAY TAKING ADDERALL XR 30 MG CAPSULE EXTENDED RELEASE 24 HOUR 1 CAPSULE ORALLY DAILY TAKING ONDANSETRON 4 MG TABLET DISPERSIBLE 1 TABLET ON THE TONGUE AND ALLOW TO DISSOLVE ORALLY EVERY 8 HRS NEEDED TAKING MIRENA 20 MCG/24HR INTRAUTERINE DEVICE INTRAUTERINE , NOTES: IN PLACE TAKING SUDAFED 30 MG TABLET 1 TABLET NEEDED ORALLY EVERY 6 HRS PRN TAKING SALINE NASAL SPRAY 0.65 % SOLUTION 2 DROPS IN EACH NOSTRIL NEEDED NASALLY EVERY 2 HRS TAKING ZYRTEC 1 TAB ORAL NEEDED, NOTES: NONE LATELY TAKING KETOROLAC TROMETHAMINE 10 MG TABLET 1 TABLET NEEDED ORALLY EVERY 6 HRS PRN FOR PAIN, NOTES: NONE LATELY TAKING FLUCONAZOLE 150 MG TABLET TAKE ONE TABLET BY MOUTH WEEKLY NEEDED TAKING ATENOLOL 50 MG TABLET 1 TABLET ORALLY ONCE A DAY TAKING MONTELUKAST SODIUM 10 MG TABLET 1 TABLET IN THE EVENING ORALLY ONCE A DAY PRN, NOTES: NONE RECENT TAKING ZOLOFT 100 MG TABLET 2 ORALLY ONCE A DAY, NOTES: 3 PER DAY TAKING PATADAY 0.2 % SOLUTION DIRECTED OPHTHALMIC ONCE DAILY TAKING VITAMIN D (ERGOCALCIFEROL) 35124 UNIT CAPSULE 1 CAPSULE ORALLY WEEKLY TAKING ATENOLOL 50 TABLET TAKE 1 TABLET BY MOUTH EVERY DAY TAKING CARISOPRODOL 350 MG TABLET 1 TABLET ORALLY Q 8 HRS NEEDED MDD=2 TAKING SINGULAIR 10 MG TABLET 1 TABLET IN THE EVENING ORALLY ONCE A DAY, NOTES: TAKES IN THE AM TAKING [id number] 50-300-40 MG CAPSULE 1 CAPSULE NEEDED ORALLY EVERY 6 HRS PRN TAKING LAC-HYDRIN 12 % LOTION 1 APPLICATION TO AFFECTED AREA EXTERNALLY TO AFFECTED AREAS OF SKIN ON SCALP, ARMS, LEGS TWICE A DAY TAKING CLOBETASOL PROPIONATE 0.05 % SOLUTION 1 APPLICATION TO AFFECTED AREA EXTERNALLY BID PRN TAKING QNASL 80 MCG/ACT AEROSOL SOLUTION 2 PUFFS IN EACH NOSTRIL NASALLY ONCE A DAY TAKING IBUPROFEN 800 MG TABLET 1 TABLET ORALLY WITH FOOD THREE TIMES A DAY NEEDED FOR PAIN MDD3 TAKING OXYCODONE HCL 5 MG TABLET 1 TABLET NEEDED ORALLY EVERY 6 HOURS NEEDED FOR PAIN MDD3 TAKING BENADRYL 25 MG TABLET 1 TABLET NEEDED ORALLY BEFORE BEDTIME TAKING BUTRANS 15 MCG/HR PATCH WEEKLY 1 PATCH TO SKIN TRANSDERMAL 1 PATCH Q 7 DAYS MDD 1 PATCH Q 7 DAYS TAKING LORAZEPAM 1 MG TABLET 1 TABLET AT BEDTIME NEEDED ORALLY BID NOT-TAKING GABAPENTIN 100 MG CAPSULE 1 CAP ORALLY FOR PAIN THREE TIMES DAILY NOT-TAKING CLONAZEPAM 0.5 MG TABLET 1 TABLET ORALLY BID / MMD#2 NOT-TAKING TRAZODONE HCL 50 MG TABLET 1 TABLET AT BEDTIME NEEDED ORALLY ONCE A DAY NOT-TAKING SENOKOT S 8.6-50 MG TABLET 2 TABLET IN THE EVENING NEEDED ORALLY BEFORE BEDTIME NOT-TAKING DULCOLAX 5 MG TABLET DELAYED RELEASE 1 TABLET NEEDED ORALLY ONCE A DAY PRN NOT-TAKING VALIUM 10 MG TABLET 1 TABLET NEEDED ORALLY 1 TAB 1HR PRE PROC. MDD1 NOT-TAKING KETOROLAC TROMETHAMINE 10 MG TABLET 1 TABLET NEEDED ORALLY FOR PAIN EVERY 8 HRS MDD3 NOT-TAKING GABAPENTIN 100 MG CAPSULE DIRECTED ORALLY BEFORE BEDTIME NOT-TAKING MULTI FOR HER 1 TABLET 1 TAB ORALLY ONCE DAILY NOT-TAKING ADRENAL C FORMULA 30 MG TABLET 1 TAB ORALLY ONCE DAILY NOT-TAKING MULTI COMPLETE 1 _ 1 TAB ORALLY ONCE DAILY MEDICATION LIST REVIEWED AND RECONCILED WITH THE PATIENT PAST MEDICAL HISTORY HIV POSITIVE 1997, TREATED WITH COMBIVIR DURING HER PREGNANCIES, ATRIPLA GAVE HER ABDOMINAL PAIN 09/[address] ROWAN FROM [facility] PAXIL DISCONTINUED/ADERALL FOR ADD/ KATHRYN ANXIETY 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 LEFT ACL RUPTURE MIGRAINE BACTERIAL VAGINOSIS UTI TEETH EXTRACTION IUD MERENA 04/2013 AT PLANNED [facility] HERPES SIMPLEX TYPE II IGG POSITIVE SEROLOGY 06/2011 HERPES ORALIS ALLERGIES SEAFOOD: HIVES: ALLERGY ABACAVIR SULFATE: HEADACHE,MIGRAINE,NAUSEA: ALLERGY METAXALONE: WEIGHT GAIN, FATIGUE: SIDE EFFECTS SUMATRIPTAN: PANIC ATTACK, REBOUND HEADACHE: SIDE EFFECTS LYRICA: SWELLING IN LEG: SIDE EFFECTS SURGICAL HISTORY D & C CHOLECYSTECTOMY TUBAL LIGATION LEFT KNEE SCOPE FAMILY HISTORY NO FAMILY HISTORY DOCUMENTED. SOCIAL HISTORY GENERAL: PAIN CLINIC PFS, CLERGY, PUBLIC HEALTH REFERRALS CLERGY REFERRAL NEEDED?NO WAS THE PROVIDER NOTIFIED OF ANY PERTINENT INFO?NO PFS REFERRAL NEEDED?NO PUBLIC HEALTH REFERRAL NEEDED?NO PATIENT: ____. MOVED ABOUT 2 WEEKS AGO. HOSPITALIZATION/MAJOR DIAGNOSTIC PROCEDURE RELATED TO SURGERY REVIEW OF SYSTEMS CONSTITUTIONAL: ANY CHANGE IN YOUR MEDICAL CONDITION? NO . CHILLS NO . FEVER NO . INFECTION: DO YOU HAVE NEW INFECTIONS? NO . DO YOU HAVE HISTORY OF MRSA? NO . MUSCULOSKELETAL: ANY NEW PATTERNS OF PAIN OR NUMBNESS? YES, SWELLING HAS CAUSED PINCHING OF RIGHT SHOULDER CAUSING NUMBNESS OF HER ARM . GASTROENTEROLOGY: ANY NEW CHANGE IN BOWEL CONTROL? NO . GENITOURINARY: ANY NEW CHANGE IN BLADDER CONTROL? NO . IS THERE A CHANCE YOU COULD BE ? NO . HEMATOLOGY/LYMPH: DO YOU TAKE ANY BLOOD THINNERS? (FOR EXAMPLE- COUMADIN, PLAVIX, AGGRENOX, PLATEL, PRADAXA, OR XARELTO) NO . WHEN WAS YOUR LAST DOSE? DATE: TIME: . NEUROLOGY: HAVE YOU FALLEN IN THE PAST 6 MONTHS? YES . ANY NEW EXTREMITY NUMBNESS OR WEAKNESS? NO . CARDIOLOGY: DO YOU HAVE A PACEMAKER OR DEFIBRILLATOR? NO . RESPIRATORY: HAVE YOU BEEN SICK IN THE PAST WEEK? NO . FEVER NO . FLU LIKE SYMPTOMS? NO . COUGH NO . INTEGUMENTARY: DO YOU HAVE ANY RASHES OR OPEN SORES? NO . ALLERGIC/IMMUNO: ARE YOU ALLERGIC TO SHELLFISH OR IV DYE? NO . ANY NEW ALLERGIES? THINKS GABAPENTIN IS CAUSING HER ISSUES . PSYCHIATRIC: DO YOU HAVE THOUGHTS OF HURTING YOURSELF OR SOMEONE ELSE? NO . ARE YOU ABUSED, NEGLECTED, OR IN AN UNSAFE ENVIRONMENT? NO . ENDOCRINOLOGY: ARE YOU DIABETIC? NO . OTHER: DO YOU NEED ANY PRESCRIPTIONS? NOT SURE . IF YES, PLEASE LIST: ____ . ANY NEW PROBLEMS WITH YOUR MEDICATIONS? YES, SWELLING. FLUID RETENTION.(SEVERE) AND FEELS IS RELATED TO THE GABAPENTIN] . WHEN DID YOU LAST EAT? ____ . WHEN DID YOU LAST DRINK? ____ . WHAT DID YOU LAST DRINK? ____ . NAME OF PERSON DRIVING YOU HOME? ____ . DO YOU HAVE ANY OTHER QUESTIONS OR CONCERNS WEIGHT GAIN / FEELS HOT TOO OFTEN WITH SWEATING. VERY CONCERNED ABOUT THE SWELLING . REVIEWED BY: PROVIDER: DOLORES VILLARREAL MD . VITAL SIGNS WT 199.8 LBS, HT 66 IN, BMI 32.25 INDEX, BP 121/69 MM HG, HR 72 /MIN, RR 20 /MIN, TEMP 97.7 F, OXYGEN SAT % 97%, NA INITIALS SJ 1440, REVIEWED BY: NL. EXAMINATION : PATIENT IS ALERT O X 3 AND COOPERATIVE. ANTALGIC GAIT. PATIENT ABLE TO BEND BACK 45 DEGREES AND EXTEND 5 DEGREES WITH DISCOMFORT. PATIENT ABLE TO ABDUCT BOTH ARMS. LEFT ARM AND HAND SENIOR APPLICATIONS ARCHITECT IS WEAKER THEN THE RIGHT. THERE IS TENDERNESS FROM THE CERVICAL AREA TO THE LOWER BACK AREA. BANDS OF TISSUE, RESTRICTION OF MOVEMENT AND PRESENCE OF TRIGGER POINTS IN THE CERVICAL AREA. MRI OF THE LUMBAR SPINE DONE ON 09/26/14 SHOWS FACET HYPERTROPHY AT L4-L5 AND L5-S1 AND DISC BULGE AT L3-L4 AND L4-L5. 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 BREWER'S PAIN MANAGEMENT CASE. AT THIS TIME THE PATIENT WILL CONTINUE WITH THE SAME MEDICATION REGIME BEFORE. PATIENT DENIES ABUSE OF ANY MEDICATION, DENIES USE OF ILLEGAL SUBSTANCES, AND STATES THAT SHE ONLY USES THE MEDICATION FOR PAIN MANAGEMENT. URINE TOXICOLOGY REPORT DONE ON 05/01/26 WAS REVIEWED. PATIENT REPORTS THAT HER LEGS DO NOT FEEL WEAK ANYMORE. DUE TO THE SPASTICITY AND THE TRIGGER POINTS THROUGHOUT THE BACK I WOULD LIKE TO MOVE FORWARD WITH TRIGGER POINT INJECTIONS. PATIENT HAS RECEIVED THEM IN THE PAST AND HAS HAD ADEQUATE RESULTS. WE DISCUSSED THE RISKS, BENEFITS, AND ALTNERATIVES OF THE INJECTION AND THE PATIENT WOULD LIKE TO MOVE FORWARD WITH THE INJECTION AT THIS TIME. INSTRUCTIONS WERE GIVEN, QUESTIONS WERE ANSWERED, PATIENT REPORTS UNDERSTANDING AND AGREES WITH THE PLAN. I, LIZ FIGUEROA, DOCUMENTED THE ABOVE INFORMATION ACTING A SCRIBE FOR DR. VILLARREAL. I HAVE REVIEWED THE ABOVE DOCUMENT, WRITTEN BY LIZ HARRISON AND I VERIFY THAT IT IS ACCURATE. OTHERS REFILL OXYCODONE HCL TABLET, 5 MG, 1 TABLET NEEDED, ORALLY, EVERY 6 HOURS NEEDED FOR PAIN MDD3, 30 DAYS, 90, REFILLS 0 REFILL BUTRANS PATCH WEEKLY, 15 MCG/HR, 1 PATCH TO SKIN, TRANSDERMAL, 1 PATCH Q 7 DAYS MDD 1 PATCH Q 7 DAYS, 30 DAY(S), 4, REFILLS 0 REFILL IBUPROFEN TABLET, 800 MG, 1 TABLET, ORALLY WITH FOOD, THREE TIMES A DAY NEEDED FOR PAIN MDD3, 30 DAY(S), 90, REFILLS 2 REFILL BENADRYL TABLET, 25 MG, 1 TABLET NEEDED, ORALLY, BEFORE BEDTIME, 30 DAY(S), 30, REFILLS 1 REFILL CARISOPRODOL TABLET, 350 MG, 1 TABLET, ORALLY, Q 8 HRS NEEDED MDD=2, 30 DAY(S), 60, REFILLS 0 PROCEDURE CODES FA211 ESTABILISHED PATIENT [facility] FACILITY CHARGE G8427 DOC MEDS VERIFIED W/PT OR RE G8730 PAIN ASSESS POS TOOL F/U PLAN DOC DISPOSITION & COMMUNICATION FOLLOW UP TPI AFTER APPROVAL ELECTRONICALLY SIGNED BY DOLORES VILLARREAL MD ON 07/20/2016 AT 05:26 PM EDT DISCLAIMER : THIS IS A VISIT SUMMARY EXTRACTED FROM THE [employer] CHART. IT IS NOT A COPY OF THE [employer] PROGRESS NOTE. MTDD
== END ==
LOC: M PAIN 14:20
PROVIDERS: ATTEND Anesthesiology
DX: Z09 Encounter for follow-up examination after completed treatment for conditions other than malignant neoplasm (principal); G89.29 Other chronic pain; M47.816 Spondylosis without myelopathy or radiculopathy, lumbar region; M47.817 Spondylosis without myelopathy or radiculopathy, lumbosacral region; M51.16 Intervertebral disc disorders with radiculopathy, lumbar region; M79.7 Fibromyalgia; B20 Human immunodeficiency virus [HIV] disease; E03.9 Hypothyroidism, unspecified; F33.1 Major depressive disorder, recurrent, moderate; F41.9 Anxiety disorder, unspecified; J30.9 Allergic rhinitis, unspecified; G43.709 Chronic migraine without aura, not intractable, without status migrainosus; B00.9 Herpesviral infection, unspecified; K59.03 Drug induced constipation; Z91.013 Allergy to seafood; Z88.2 Allergy status to sulfonamides; Z88.8 Allergy status to other drugs, medicaments and biological substances; Z79.1 Long term (current) use of non-steroidal anti-inflammatories (NSAID); Z79.891 Long term (current) use of opiate analgesic; Z79.899 Other long term (current) drug therapy

== ENCOUNTER → 2016-07-18 | Outpatient (CLI) | payer MEDICARE, MEDICAID ==
[~2016-07-18] MED LIST changes: +BUPIVACAINE HCL 0.25% 10 ML VIAL As Ordered ONE; +BUPIVACAINE HCL 0.25% 30 ML VIAL As Ordered ONE; +TRIAMCINOLONE ACETONIDE SUSP 40 MG/ML VIAL (J3301) As Ordered ONE; +diazePAM 5 MG TAB As Ordered ONE; +oxyCODONE 5MG TAB As Ordered ONE
--- NOTE | 2016-07-23 23:30 | ECWPNPC ---
PATIENT NAME: DEANDRA BREWER : 1975 GENDER: FEMALE VISIT DATE: 07/18/2016 DISCHARGE DATE: 07/18/16 164 VISIT LOCKED DATE TIME: PHYSICIAN: DOLORES VILLARREAL RESOURCE: DOLORES VILLARREAL REASON FOR APPOINTMENT 1. TPI HISTORY OF PRESENT ILLNESS HISTORY OF PRESENT ILLNESS: PAIN THE PATIENT DESCRIBES THE PAIN... FALL RISK SCREENING: SCREENING :NO FALLS IN THE PAST YEAR CURRENT MEDICATIONS TAKING OXYCODONE HCL 5 MG TABLET 1 TABLET NEEDED ORALLY EVERY 6 HOURS NEEDED FOR PAIN MDD3, NOTES: 07/18/16 0400 TAKING BUTRANS 15 MCG/HR PATCH WEEKLY 1 PATCH TO SKIN TRANSDERMAL 1 PATCH Q 7 DAYS MDD 1 PATCH Q 7 DAYS, NOTES: 07/18/16 TAKING IBUPROFEN 800 MG TABLET 1 TABLET ORALLY WITH FOOD THREE TIMES A DAY NEEDED FOR PAIN MDD3, NOTES: 07/18/16 0800 TAKING BENADRYL 25 MG TABLET 1 TABLET NEEDED ORALLY BEFORE BEDTIME, NOTES: 07/16/13 TAKING CARISOPRODOL 350 MG TABLET 1 TABLET ORALLY Q 8 HRS NEEDED MDD=2, NOTES: 07/18/16 0800 TAKING GABAPENTIN 100 MG CAPSULE DIRECTED ORALLY 2 CAPSULES TID FOR PAIN MDD6, NOTES: TAPERING DOWN DOSE 07/18/16 1100 100 MG TAKING GENVOYA [phone] MG TABLET DIRECTED ORALLY ONCE DAILY, NOTES: 07/17/16 TAKING CYTOMEL 10 MG TABLET 1 TABLET ON AN EMPTY STOMACH ORALLY ONCE A DAY, NOTES: 07/18/16 040 TAKING SYNTHROID 150 MCG TABLET 1 TABLET ORALLY ONCE A DAY, NOTES: 07/18/16 040 TAKING ADDERALL XR 30 MG CAPSULE EXTENDED RELEASE 24 HOUR 1 CAPSULE ORALLY DAILY, NOTES: 07/18/16 0800 TAKING ONDANSETRON 4 MG TABLET DISPERSIBLE 1 TABLET ON THE TONGUE AND ALLOW TO DISSOLVE ORALLY EVERY 8 HRS NEEDED, NOTES: 07/18/16 1030 TAKING MIRENA 20 MCG/24HR INTRAUTERINE DEVICE INTRAUTERINE , NOTES: IN PLACE TAKING SUDAFED 30 MG TABLET 1 TABLET NEEDED ORALLY EVERY 6 HRS PRN, NOTES: NONE LATELY TAKING SALINE NASAL SPRAY 0.65 % SOLUTION 2 DROPS IN EACH NOSTRIL NEEDED NASALLY EVERY 2 HRS, NOTES: NONE LATELY TAKING ZYRTEC 1 TAB ORAL NEEDED, NOTES: 07/18/16799 TAKING KETOROLAC TROMETHAMINE 10 MG TABLET 1 TABLET NEEDED ORALLY EVERY 6 HRS PRN FOR PAIN, NOTES: NONE LATELY TAKING FLUCONAZOLE 150 MG TABLET TAKE ONE TABLET BY MOUTH WEEKLY NEEDED, NOTES: 2 WKS AGO TAKING ATENOLOL 50 MG TABLET 1 TABLET ORALLY ONCE A DAY, NOTES: 07/18/16799 TAKING MONTELUKAST SODIUM 10 MG TABLET 1 TABLET IN THE EVENING ORALLY ONCE A DAY PRN, NOTES: 07/18/16799 TAKING ZOLOFT 100 MG TABLET 2 ORALLY ONCE A DAY, NOTES: 3 PER DAY 07/18/16799 TAKING PATADAY 0.2 % SOLUTION DIRECTED OPHTHALMIC ONCE DAILY, NOTES: NONE LATELY TAKING VITAMIN D (ERGOCALCIFEROL) 19758 UNIT CAPSULE 1 CAPSULE ORALLY WEEKLY, NOTES: 07/18/16799 TAKING [id number] 50-300-40 MG CAPSULE 1 CAPSULE NEEDED ORALLY EVERY 6 HRS PRN, NOTES: 07/18/16799 TAKING LAC-HYDRIN 12 % LOTION 1 APPLICATION TO AFFECTED AREA EXTERNALLY TO AFFECTED AREAS OF SKIN ON SCALP, ARMS, LEGS TWICE A DAY, NOTES: NONE LATELY TAKING CLOBETASOL PROPIONATE 0.05 % SOLUTION 1 APPLICATION TO AFFECTED AREA EXTERNALLY BID PRN, NOTES: NONE LATELY TAKING QNASL 80 MCG/ACT AEROSOL SOLUTION 2 PUFFS IN EACH NOSTRIL NASALLY ONCE A DAY, NOTES: 07/18/16799 TAKING LORAZEPAM 1 MG TABLET 1 TABLET AT BEDTIME NEEDED ORALLY BID, NOTES: 07/18/16 0400 TAKING OXYBUTYNIN CHLORIDE ER 10 MG TABLET EXTENDED RELEASE 24 HOUR 1 TABLET ORALLY ONCE A DAY, NOTES: 07/18/16799 NOT-TAKING GABAPENTIN 100 MG CAPSULE 1 CAP ORALLY FOR PAIN THREE TIMES DAILY NOT-TAKING CLONAZEPAM 0.5 MG TABLET 1 TABLET ORALLY BID / MMD#2 NOT-TAKING TRAZODONE HCL 50 MG TABLET 1 TABLET AT BEDTIME NEEDED ORALLY ONCE A DAY NOT-TAKING SENOKOT S 8.6-50 MG TABLET 2 TABLET IN THE EVENING NEEDED ORALLY BEFORE BEDTIME NOT-TAKING DULCOLAX 5 MG TABLET DELAYED RELEASE 1 TABLET NEEDED ORALLY ONCE A DAY PRN NOT-TAKING VALIUM 10 MG TABLET 1 TABLET NEEDED ORALLY 1 TAB 1HR PRE PROC. MDD1 NOT-TAKING KETOROLAC TROMETHAMINE 10 MG TABLET 1 TABLET NEEDED ORALLY FOR PAIN EVERY 8 HRS MDD3 NOT-TAKING GABAPENTIN 100 MG CAPSULE DIRECTED ORALLY BEFORE BEDTIME NOT-TAKING MULTI FOR HER 1 TABLET 1 TAB ORALLY ONCE DAILY NOT-TAKING ADRENAL C FORMULA 30 MG TABLET 1 TAB ORALLY ONCE DAILY NOT-TAKING MULTI COMPLETE 1 _ 1 TAB ORALLY ONCE DAILY DISCONTINUED ATENOLOL 50 TABLET TAKE 1 TABLET BY MOUTH EVERY DAY DISCONTINUED SINGULAIR 10 MG TABLET 1 TABLET IN THE EVENING ORALLY ONCE A DAY, NOTES: TAKES IN THE AM MEDICATION LIST REVIEWED AND RECONCILED WITH THE PATIENT PAST MEDICAL HISTORY HIV POSITIVE 1997, TREATED WITH COMBIVIR DURING HER PREGNANCIES, ATRIPLA GAVE HER ABDOMINAL PAIN 09/[address] ROWAN FROM [facility] PAXIL DISCONTINUED/ADERALL FOR ADD/ KATHRYN ANXIETY 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 LEFT ACL RUPTURE MIGRAINE BACTERIAL VAGINOSIS UTI TEETH EXTRACTION IUD MERENA 04/2013 AT [facility] HERPES SIMPLEX TYPE II IGG POSITIVE SEROLOGY 06/2011 HERPES ORALIS ALLERGIES SEAFOOD: HIVES: ALLERGY ABACAVIR SULFATE: HEADACHE,MIGRAINE,NAUSEA: ALLERGY METAXALONE: WEIGHT GAIN, FATIGUE: SIDE EFFECTS SUMATRIPTAN: PANIC ATTACK, REBOUND HEADACHE: SIDE EFFECTS LYRICA: SWELLING IN LEG: SIDE EFFECTS SOCIAL HISTORY GENERAL: PAIN CLINIC PFS, CLERGY, PUBLIC HEALTH REFERRALS CLERGY REFERRAL NEEDED?NO WAS THE PROVIDER NOTIFIED OF ANY PERTINENT INFO?NO PFS REFERRAL NEEDED?NO PUBLIC HEALTH REFERRAL NEEDED?NO PATIENT: ____. REVIEW OF SYSTEMS CONSTITUTIONAL: ANY CHANGE IN YOUR MEDICAL CONDITION? NO . CHILLS NO . FEVER NO . INFECTION: DO YOU HAVE NEW INFECTIONS? NO . DO YOU HAVE HISTORY OF MRSA? NO . MUSCULOSKELETAL: ANY NEW PATTERNS OF PAIN OR NUMBNESS? YES PT NOTES &QUOT;PINCHING IN MY NECK AND BACK FOR A COUPLE OF WEEKS&QUOT; . GASTROENTEROLOGY: ANY NEW CHANGE IN BOWEL CONTROL? NO . GENITOURINARY: ANY NEW CHANGE IN BLADDER CONTROL? NO . IS THERE A CHANCE YOU COULD BE ? NO . HEMATOLOGY/LYMPH: DO YOU TAKE ANY BLOOD THINNERS? (FOR EXAMPLE- COUMADIN, PLAVIX, AGGRENOX, PLATEL, PRADAXA, OR XARELTO) NO . WHEN WAS YOUR LAST DOSE? DATE: TIME: . NEUROLOGY: HAVE YOU FALLEN IN THE PAST 6 MONTHS? YES NO ED EVAL . ANY NEW EXTREMITY NUMBNESS OR WEAKNESS? NO . CARDIOLOGY: DO YOU HAVE A PACEMAKER OR DEFIBRILLATOR? NO . RESPIRATORY: HAVE YOU BEEN SICK IN THE PAST WEEK? NO . FEVER NO . FLU LIKE SYMPTOMS? NO . COUGH NO . INTEGUMENTARY: DO YOU HAVE ANY RASHES OR OPEN SORES? NO . ALLERGIC/IMMUNO: ARE YOU ALLERGIC TO SHELLFISH OR IV DYE? YES SEAFOOD-THROAT SWELLING . ANY NEW ALLERGIES? NO . PSYCHIATRIC: DO YOU HAVE THOUGHTS OF HURTING YOURSELF OR SOMEONE ELSE? NO . ARE YOU ABUSED, NEGLECTED, OR IN AN UNSAFE ENVIRONMENT? NO . ENDOCRINOLOGY: ARE YOU DIABETIC? NO . OTHER: DO YOU NEED ANY PRESCRIPTIONS? NO . IF YES, PLEASE LIST: ____ . ANY NEW PROBLEMS WITH YOUR MEDICATIONS? NO . WHEN DID YOU LAST EAT? ____07-17-161999 . WHEN DID YOU LAST DRINK? ____07-18-16 08 . WHAT DID YOU LAST DRINK? ____WATER . NAME OF PERSON DRIVING YOU HOME? ____ . DO YOU HAVE ANY OTHER QUESTIONS OR CONCERNS YES DISCUSS BOTOX/WEANING GABAPENTIN . REVIEWED BY: PROVIDER: . VITAL SIGNS WT 191.0 LBS, HT 66 IN, BMI 30.82 INDEX, BP 123/71 MM HG, HR 85 /MIN, RR 18 /MIN, TEMP 98.1 F, OXYGEN SAT % 95%, NA INITIALS AW 1403, REVIEWED BY: MLF. ASSESSMENTS MYALGIA - M79.1 (PRIMARY) PROCEDURES PN TRIGGER POINT INJECTION WITH STEROIDS PRE PROCEDURE DIAGNOSIS 1. MYALGIA 2. PAIN AT BILATERAL NECK AREA, BILATERAL SHOULDER AREA, AND BILATERAL THORACIC AREA POST PROCEDURE DIAGNOSIS 1. MYALGIA 2. PAIN AT BILATERAL NECK AREA, BILATERAL SHOULDER AREA, AND BILATERAL THORACIC AREA PROCEDURE TRIGGER POINT INJECTION AT BILATERAL NECK AREA, BILATERAL SHOULDER AREA, AND BILATERAL THORACIC AREA SURGEON DR. DOLORES VILLARREAL CARE CONSULTANT NONE ANESTHESIA LOCAL PRE PROCEDURE NOTE THE PATIENT HAS A HISTORY OF CHRONIC PAIN AT THE RIGHT AND LEFT NECK AREA, RIGHT AND LEFT SHOULDER AREA, AND RIGHT AND LEFT THORACIC AREA. I EVALUATE THE PATIENT AND REVIEWED THE CHART. THERE IS EVIDENCE OF BANDS OF TISSUE WITH RESTRICTION OF MOVEMENT AND PRESENCE OF TRIGGER POINT AT THE AFFECTED AREA. I WENT OVER THE RISKS, ALTERNATIVES, AND BENEFITS ASSOCIATED WITH THIS PROCEDURE. THE PATIENT WOULD LIKE TO PROCEED AND GIVE CONSENT TO PERFORMED THE PROCEDURE. THE PATIENT DENIES UNEXPLAINABLE WEIGHT LOSS, FEVER, CHILLS, OR NEW CHANGES IN URINARY OR BOWEL CONTROL DESCRIPTION OF PROCEDURE THE PATIENT WAS BROUGHT TO THE PROCEDURE ROOM AND PLACED IN THE SITTING POSITION. THE AREA WAS CLEANED WITH ALCOHOL. THE PROCEDURE WAS DONE USING ASEPTIC STERILE TECHNIQUE. I CHECKED LATERALITY AND THE LEVEL WHERE THE PROCEDURE WAS GOING TO BE PERFORMED WITH THE PATIENT AND THE SUPPORTING STAFF AT THE MOMENT OF THE TIME OUT IN THE PROCEDURE ROOM. USING A 25-GAUGE NEEDLE, TRIGGER POINTS WERE INJECTED AT THE RIGHT AND LEFT NECK AREA, RIGHT AND LEFT SHOULDER AREA, AND RIGHT AND LEFT THORACIC AREA WITH A TOTAL OF 40 ML OF BUPIVACAINE 0.25% AND KENALOG 40 MG. THERE WAS NO EVIDENCE OF BLOOD, PARESTHESIA OR CEREBROSPINAL FLUID DURING THE PROCEDURE. THE PATIENT WAS SENT TO THE RECOVERY ROOM. THE PATIENT WAS MOVING THE EXTREMITIES AND DOING WELL. THERE WAS NO COMPLICATION DURING THE PROCEDURE POST PROCEDURE NOTE THE PATIENT WILL BE SEEN IN A FOLLOW UP IN THE NEXT FEW WEEKS. INSTRUCTIONS WERE GIVEN, QUESTIONS WERE ANSWERED, AND THE PATIENT EXPRESSED UNDERSTANDING AND AGREES WITH THE PLAN. I, KING CARR, DOCUMENTED THE ABOVE INFORMATION ACTING A SCRIBE FOR DR. VILLARREAL. I HAVE REVIEWED THE ABOVE DOCUMENT, WRITTEN BY KING CARR SCRIBDane AND I VERIFY THAT IT IS ACCURATE. PROCEDURE CODES 57975 INJECT TRIGGER POINTS 3/> DISPOSITION & COMMUNICATION FOLLOW UP 3 WEEKS ELECTRONICALLY SIGNED BY DOLORES VILLARREAL MD ON 07/23/2016 AT 11:21 AM EDT DISCLAIMER : THIS IS A VISIT SUMMARY EXTRACTED FROM THE [facility] CHART. IT IS NOT A COPY OF THE [employer] PROGRESS NOTE. LESLIE
== END ==
LOC: M PAIN 13:45
PROVIDERS: ATTEND Anesthesiology
DX: G89.29 Other chronic pain (principal); M79.1 Myalgia; M54.2 Cervicalgia; M25.511 Pain in right shoulder; M25.512 Pain in left shoulder; M54.6 Pain in thoracic spine; B20 Human immunodeficiency virus [HIV] disease; E03.9 Hypothyroidism, unspecified; F33.1 Major depressive disorder, recurrent, moderate; F41.9 Anxiety disorder, unspecified; B00.9 Herpesviral infection, unspecified; Z91.013 Allergy to seafood; Z88.2 Allergy status to sulfonamides; Z88.8 Allergy status to other drugs, medicaments and biological substances; Z79.891 Long term (current) use of opiate analgesic; Z79.1 Long term (current) use of non-steroidal anti-inflammatories (NSAID); J30.9 Allergic rhinitis, unspecified
CPT/HCPCS: 20553; J3301

== ENCOUNTER → 2016-08-05 | Outpatient (REF) | payer MEDICARE, MEDICAID ==
[~2016-08-05] MED LIST changes: -BUPIVACAINE HCL 0.25% 10 ML VIAL As Ordered ONE; -BUPIVACAINE HCL 0.25% 30 ML VIAL As Ordered ONE; +GENV1TAB PO; -TRIAMCINOLONE ACETONIDE SUSP 40 MG/ML VIAL (J3301) As Ordered ONE; -diazePAM 5 MG TAB As Ordered ONE; -oxyCODONE 5MG TAB As Ordered ONE
[2016-08-05 16:11] LABS: ALBUMIN 4.1 GM/DL (3.2-5.2); ALBUMIN/GLOBULIN RATIO 1.41 (1.00-1.93); ALKALINE PHOSPHATASE 89 U/L (45-117); ALT/SGPT 20 U/L (12-78); ANION GAP 8 MEQ/L (8-16); AST/SGOT 15 U/L (15-37); BILIRUBIN,TOTAL 0.2 MG/DL (0.2-1.0); BLOOD UREA NITROGEN 13 MG/DL (7-18); CALCIUM LEVEL 8.5 MG/DL (8.5-10.1); CARBON DIOXIDE LEVEL 27 MEQ/L (21-32); CHLORIDE LEVEL 104 MEQ/L (98-107); CREATININE FOR GFR 0.81 MG/DL (0.55-1.02); FREE T4 0.79 NG/DL (0.76-1.46); GLOMERULAR FILTRATION RATE > 60.0 (>58); GLUCOSE, FASTING 88 MG/DL (70-105); POTASSIUM SERUM 4.3 MEQ/L (3.5-5.1); SODIUM LEVEL 139 MEQ/L (136-145)
[2016-08-08 08:07] LABS: %CD3+CD4+CD8+ 6.6 % (Not Estab.); %CD3+CD4+CD8- 36.6 % (Not Estab.); %CD3+CD4-CD8+ 25.5 % (Not Estab.); %CD3+CD4-CD8- 0.6 % (Not Estab.); ABS CD3+CD4+CD8+ 139 /uL (Not Estab.); ABS CD3+CD4+CD8- 769 /uL (Not Estab.); ABS CD3+CD4-CD8+ 536 /uL (Not Estab.); ABS CD3+CD4-CD8- 13 /uL (Not Estab.); CD4/CD8 NYSDOH RATIO 1.44 (Not Estab.); Eosinophils 1 % (.); HCT 45.2 % (34.0-46.6); Monocytes 5 % (.); Neutrophils 67 % (.); WBC 7.9 x10E3/uL (3.4-10.8)
== END ==
LOC: M SFHCPLAZ 12:25
PROVIDERS: ATTEND Internal Medicine Infectious Disease
DX: B20 Human immunodeficiency virus [HIV] disease (principal); E03.9 Hypothyroidism, unspecified
CPT/HCPCS: 36415; 80053; 82306; 82955; 84439; 84443; 84480; 86360; 87536; G0463

== ENCOUNTER → 2016-08-06 | Outpatient (REF) | payer MEDICARE, MEDICAID ==
[2016-08-06 18:49] LABS: CALCIUM OXALATE CRYSTALS SMALL
== END ==
LOC: M LAB REF 16:43
PROVIDERS: ATTEND Nurse Practitioner Women's Health
DX: R30.0 Dysuria (principal)

== ENCOUNTER 2016-08-10 18:00 | Emergency (ER) | payer MEDICARE, MEDICAID ==
[~2016-08-10] VITALS: Ht 165.1 cm; Wt 81.6 kg
[~2016-08-10 18:00] MED LIST changes: -GENV1TAB PO
[2016-08-10] MEDS ORDERED: GENV1TAB PO (18:10)
[2016-08-10] MEDS ORDERED: NS 1,000 ML IV ONE (19:30)
[2016-08-10] MEDS ORDERED: METOCLOPRAMIDE INJ 10MG/2ML VIAL (J2765) IV ONE (19:30)
[2016-08-10] MEDS ORDERED: PROMETHAZINE INJ 25 MG/ML VIAL (J2550) IV ONE (19:30)
[2016-08-10] MEDS ORDERED: diphenhydrAMINE INJ 50MG/ML VIAL (J1200) IV ONE (20:15)
[2016-08-10 20:18] LABS: BASO % 0.7 % (0.0-1.0); EOS # 0.1 K/mm3 (0.0-0.50); EOS % 0.9 % (0.0-3.0); LARGE UNSTAINED CELL # 0.1 K/mm3 (0.0-0.4); LARGE UNSTAINED CELL % 1.3 % (0.0-4.0); LYMPH # 2.1 K/mm3 (1.5-4.5); LYMPH % 30.2 % (24.0-44.0); MEAN CORPUSCULAR HEMOGLOBIN 32.6 pg (27.0-33.0); MEAN CORPUSCULAR HGB CONC 32.9 g/dl (32.0-36.5); MEAN CORPUSCULAR VOLUME 99.2 fl (80.0-96.0); MONO # 0.4 K/mm3 (0.0-0.8); MONO % 5.7 % (0.0-5.0); NEUTROPHILS # 4.2 K/mm3 (1.8-7.7); NEUTROPHILS % 61.3 % (36.0-66.0); PLATELET COUNT, AUTOMATED 264 k/mm3 (150-450); RED CELL DISTRIBUTION WIDTH 12.1 % (11.5-14.5); WHITE BLOOD COUNT 6.9 K/mm3 (4.0-10.0)
[2016-08-10 20:41] LABS: ALBUMIN 3.8 GM/DL (3.2-5.2); ALBUMIN/GLOBULIN RATIO 1.31 (1.00-1.93); ALKALINE PHOSPHATASE 91 U/L (45-117); ALT/SGPT 25 U/L (12-78); ANION GAP 5 MEQ/L (8-16); AST/SGOT 19 U/L (15-37); BILIRUBIN,TOTAL 0.2 MG/DL (0.2-1.0); BLOOD UREA NITROGEN 10 MG/DL (7-18); CALCIUM LEVEL 8.3 MG/DL (8.5-10.1); CARBON DIOXIDE LEVEL 29 MEQ/L (21-32); CHLORIDE LEVEL 104 MEQ/L (98-107); CREATININE FOR GFR 0.67 MG/DL (0.55-1.02); GLOMERULAR FILTRATION RATE > 60.0 (>58); GLUCOSE, FASTING 86 MG/DL (70-105); POTASSIUM SERUM 4.5 MEQ/L (3.5-5.1); SODIUM LEVEL 138 MEQ/L (136-145); TOTAL PROTEIN 6.7 GM/DL (6.4-8.2)
[2016-08-10 21:47] VITALS: BP 113/69
--- NOTE | 2016-08-11 06:42 | ECGEPIP ---
Stationary ECG Study [facility] - ED Test Date: 2016-08-10 Pat Name: DEANDRA BREWER Department: Room: - Gender: F Home Care Consultant: nitish : 1975 Requested By: RODRI Jansen PA-C Order Number: [id number] Reading MD: Tyrell Ramos Measurements Intervals [place] Rate: 58 P: 9 MD: 189 QRS: 4 QRSD: 91 T: 12 QT: 402 QTc: 396 Interpretive Statements SINUS BRADYCARDIA BORDERLINE 1ST DEGREE AV BLOCK SIMILAR TO 06/16/15 Electronically Signed On 08-11-2016 6:42:19 EDT by Tyrell Ramos
--- NOTE | 2016-08-11 09:11 | REP ---
TWO VIEW CHEST: COMPARISON: 06/18/2015 at [facility]. There is no evidence of acute infiltrate. No pleural effusion is seen. The heart is normal in size. The mediastinal silhouette is unremarkable. The visualized osseous structures are intact. IMPRESSION: No acute pulmonary disease. Signed by Luther Ying MD 08/12/2016 04:00 P
== END 2016-08-10 21:49 | disposition home or self-care (01) ==
LOC: M ED 18:40
DX: G43.909 Migraine, unspecified, not intractable, without status migrainosus (principal); F41.9 Anxiety disorder, unspecified; B20 Human immunodeficiency virus [HIV] disease; E03.9 Hypothyroidism, unspecified; F33.9 Major depressive disorder, recurrent, unspecified; Z79.899 Other long term (current) drug therapy; J30.9 Allergic rhinitis, unspecified; Z88.8 Allergy status to other drugs, medicaments and biological substances
CPT/HCPCS: 71020; 80053; 81001; 82553; 84484; 85025; 93005; 96374; 96375; 99283; J1200; J2765; J3360

== ENCOUNTER → 2016-08-12 | Outpatient (CLI) | payer MEDICARE, MEDICAID ==
[~2016-08-12] MED LIST changes: +GENV1TAB PO
--- NOTE | 2016-08-26 02:40 | ECWPNPC ---
PATIENT NAME: DEANDRA BREWER : 1975 GENDER: FEMALE VISIT DATE: 08/12/2016 DISCHARGE DATE: 08/12/16 1615 VISIT LOCKED DATE TIME: PHYSICIAN: DOLORES VILLARREAL RESOURCE: DOLORES VILLARREAL REASON FOR APPOINTMENT 1. MEDS HISTORY OF PRESENT ILLNESS HISTORY OF PRESENT ILLNESS: PAIN THE PATIENT DESCRIBES THE PAIN... 41 YEAR OLD FEMALE PATIENT WITH HISTORY OF CHRONIC NECK AND BACK PAIN. PATIENT DESCRIBES THE PAIN ACHING, BURNING, SHARP, STABBING, TENDER, THROBBING, SORE, SHOOTING, IT COMES AND GOES, AND HAVING IT ALL THE TIME WITH A PAIN SCORE OF 10/10 ON TODAY'S VISIT. PATIENT RECEIVED A BOTOX INJECTION FOR MIGRAINES ON 04/10/16 AND STATES THAT HER HEADACHES HAVE DECREASED SIGNIFICANTLY AND ONLY REPORTS HAVING ABOUT 3 MIGRAINES A MONTH. BUT NOW THE HEADACHES ARE BEGINNING TO GET BAD AGAIN. PATIENT STATES THAT ANY TYPE OF ACTIVITY INCREASES THE PAIN IN HER NECK AND BACK. PATIENT DENIES UNEXPLAINABLE WEIGHT LOSS, FEVER, CHILLS, NEW CHANGES ON HER URINARY OR BOWEL CONTROL. FALL RISK SCREENING: SCREENING :NO FALLS IN THE PAST YEAR CURRENT MEDICATIONS TAKING ATIVAN 1 MG TABLET 1 TABLET ORALLY TWICE DAILY TAKING AMMONIUM LACTATE 12 % CREAM 1 APPLICATION TO AFFECTED AREA EXTERNALLY TWICE A DAY TO DRY SKIN TAKING DERMASMOOTHE/FS 0.01% OIL DIRECTED TOPICALLY 2-3X/WEEK X 4 WEEKS TAKING GABAPENTIN 100 MG CAPSULE DIRECTED ORALLY 1 CAP DAILY NEEDED FOR PAIN TAKING GENVOYA [phone] MG TABLET DIRECTED ORALLY ONCE DAILY TAKING CYTOMEL 10 MG TABLET 2 TABLET ON AN EMPTY STOMACH ORALLY ONCE A DAY TAKING SYNTHROID 150 MCG TABLET 1 TABLET ORALLY ONCE A DAY TAKING ADDERALL XR 30 MG CAPSULE EXTENDED RELEASE 24 HOUR 1 CAPSULE ORALLY DAILY TAKING ONDANSETRON 8 MG TABLET DISPERSIBLE 1 TABLET ON THE TONGUE AND ALLOW TO DISSOLVE ORALLY EVERY 8 HRS NEEDED TAKING MIRENA 20 MCG/24HR INTRAUTERINE DEVICE INTRAUTERINE , NOTES: IN PLACE TAKING SUDAFED 30 MG TABLET 1 TABLET NEEDED ORALLY EVERY 6 HRS PRN TAKING SALINE NASAL SPRAY 0.65 % SOLUTION 2 DROPS IN EACH NOSTRIL NEEDED NASALLY EVERY 2 HRS TAKING ZYRTEC 1 TAB ORAL NEEDED, NOTES: NONE LATELY TAKING KETOROLAC TROMETHAMINE 10 MG TABLET 1 TABLET NEEDED ORALLY EVERY 6 HRS PRN FOR PAIN, NOTES: NONE LATELY TAKING ATENOLOL 50 MG TABLET 1 TABLET ORALLY ONCE A DAY TAKING ZOLOFT 100 MG TABLET 3 TABLETS ORALLY ONCE A DAY TAKING PATADAY 0.2 % SOLUTION DIRECTED OPHTHALMIC ONCE DAILY TAKING VITAMIN D (ERGOCALCIFEROL) 39567 UNIT CAPSULE 1 CAPSULE ORALLY WEEKLY TAKING CARISOPRODOL 350 MG TABLET 1 TABLET ORALLY Q 8 HRS NEEDED MDD=2 TAKING SINGULAIR 10 MG TABLET 1 TABLET IN THE EVENING ORALLY ONCE A DAY TAKING [id number] 50-300-40 MG CAPSULE 1 CAPSULE NEEDED ORALLY EVERY 6 HRS PRN TAKING CLOBETASOL PROPIONATE 0.05 % SOLUTION 1 APPLICATION TO AFFECTED AREA EXTERNALLY BID PRN TAKING QNASL 80 MCG/ACT AEROSOL SOLUTION 2 PUFFS IN EACH NOSTRIL NASALLY ONCE A DAY TAKING IBUPROFEN 800 MG TABLET 1 TABLET ORALLY WITH FOOD THREE TIMES A DAY NEEDED FOR PAIN MDD3 TAKING OXYCODONE HCL 5 MG TABLET 1 TABLET NEEDED ORALLY EVERY 6 HOURS NEEDED FOR PAIN MDD3 TAKING BENADRYL 25 MG TABLET 1 TABLET NEEDED ORALLY BEFORE BEDTIME TAKING BUTRANS 15 MCG/HR PATCH WEEKLY 1 PATCH TO SKIN TRANSDERMAL 1 PATCH Q 7 DAYS MDD 1 PATCH Q 7 DAYS NOT-TAKING FLUCONAZOLE 150 MG TABLET TAKE ONE TABLET BY MOUTH WEEKLY NEEDED DISCONTINUED LORAZEPAM 1 MG TABLET 1 TABLET AT BEDTIME NEEDED ORALLY BID DISCONTINUED OXYBUTYNIN CHLORIDE ER 10 MG TABLET EXTENDED RELEASE 24 HOUR 1 TABLET ORALLY ONCE A DAY DISCONTINUED CLONAZEPAM 0.5 MG TABLET 1 TABLET ORALLY BID / MMD#2 DISCONTINUED TRAZODONE HCL 50 MG TABLET 1 TABLET AT BEDTIME NEEDED ORALLY ONCE A DAY DISCONTINUED MONTELUKAST SODIUM 10 MG TABLET 1 TABLET IN THE EVENING ORALLY ONCE A DAY PRN, NOTES: NONE RECENT DISCONTINUED ATENOLOL 50 TABLET TAKE 1 TABLET BY MOUTH EVERY DAY DISCONTINUED GABAPENTIN 100 MG CAPSULE 1 CAP ORALLY FOR PAIN THREE TIMES DAILY DISCONTINUED SENOKOT S 8.6-50 MG TABLET 2 TABLET IN THE EVENING NEEDED ORALLY BEFORE BEDTIME DISCONTINUED DULCOLAX 5 MG TABLET DELAYED RELEASE 1 TABLET NEEDED ORALLY ONCE A DAY PRN DISCONTINUED VALIUM 10 MG TABLET 1 TABLET NEEDED ORALLY 1 TAB 1HR PRE PROC. MDD1 DISCONTINUED KETOROLAC TROMETHAMINE 10 MG TABLET 1 TABLET NEEDED ORALLY FOR PAIN EVERY 8 HRS MDD3 DISCONTINUED GABAPENTIN 100 MG CAPSULE DIRECTED ORALLY BEFORE BEDTIME DISCONTINUED MULTI FOR HER 1 TABLET 1 TAB ORALLY ONCE DAILY DISCONTINUED ADRENAL C FORMULA 30 MG TABLET 1 TAB ORALLY ONCE DAILY DISCONTINUED MULTI COMPLETE 1 _ 1 TAB ORALLY ONCE DAILY UNKNOWN LAC-HYDRIN 12 % LOTION 1 APPLICATION TO AFFECTED AREA EXTERNALLY TO AFFECTED AREAS OF SKIN ON SCALP, ARMS, LEGS TWICE A DAY MEDICATION LIST REVIEWED AND RECONCILED WITH THE PATIENT PAST MEDICAL HISTORY HIV POSITIVE 1997, TREATED WITH COMBIVIR DURING HER PREGNANCIES, ATRIPLA GAVE HER ABDOMINAL PAIN 09/[address] [facility] DIS[facility]/ADERALL FOR ADD/ KATHRYN ANXIETY 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 LEFT ACL RUPTURE MIGRAINE BACTERIAL VAGINOSIS UTI TEETH EXTRACTION IUD MERENA 04/2013 AT PLANNED [facility] HERPES SIMPLEX TYPE II IGG POSITIVE SEROLOGY 06/2011 HERPES ORALIS ALLERGIES SEAFOOD: HIVES: ALLERGY ABACAVIR SULFATE: HEADACHE,MIGRAINE,NAUSEA: ALLERGY METAXALONE: WEIGHT GAIN, FATIGUE: SIDE EFFECTS SUMATRIPTAN: PANIC ATTACK, REBOUND HEADACHE: SIDE EFFECTS LYRICA: SWELLING IN LEG: SIDE EFFECTS SURGICAL HISTORY D & C CHOLECYSTECTOMY TUBAL LIGATION LEFT KNEE SCOPE FAMILY HISTORY NO FAMILY HISTORY DOCUMENTED. SOCIAL HISTORY GENERAL: BMI CARE GOAL FOLLOW-UP ABOVE NORMAL BMI FOLLOW-UPGIVING ENCOURAGEMENT TO EXERCISE LEARNING BARRIERS / SPECIAL NEEDS BARRIERS TO LEARNING?NO HEARING IMPAIRED?NO VISION IMPAIRED?YES :CORRECTIVE LENSES READINESS TO LEARN?YES LEARNING PREFERENCES?NO LEARNING CAPABILITIES PRESENT?YES EMOTIONAL BARRIERS?NO SPECIAL DEVICES?NO LOT WORKER NEEDED?NO PAIN CLINIC PFS, CLERGY, PUBLIC HEALTH REFERRALS CLERGY REFERRAL NEEDED?NO WAS THE PROVIDER NOTIFIED OF ANY PERTINENT INFO?NO PFS REFERRAL NEEDED?NO PUBLIC HEALTH REFERRAL NEEDED?NO PATIENT: ____. MOVED ABOUT 2 WEEKS AGO. HOSPITALIZATION/MAJOR DIAGNOSTIC PROCEDURE RELATED TO SURGERY REVIEW OF SYSTEMS CONSTITUTIONAL: ANY CHANGE IN YOUR MEDICAL CONDITION? NO . CHILLS NO . FEVER NO . INFECTION: DO YOU HAVE NEW INFECTIONS? NO . DO YOU HAVE HISTORY OF MRSA? NO . MUSCULOSKELETAL: ANY NEW PATTERNS OF PAIN OR NUMBNESS? YES, BOTH WRIST ARE HURTING AND STIFF. . GASTROENTEROLOGY: ANY NEW CHANGE IN BOWEL CONTROL? NO . GENITOURINARY: ANY NEW CHANGE IN BLADDER CONTROL? NO . IS THERE A CHANCE YOU COULD BE ? NO . HEMATOLOGY/LYMPH: DO YOU TAKE ANY BLOOD THINNERS? (FOR EXAMPLE- COUMADIN, PLAVIX, AGGRENOX, PLATEL, PRADAXA, OR XARELTO) NO . WHEN WAS YOUR LAST DOSE? DATE: TIME: . NEUROLOGY: HAVE YOU FALLEN IN THE PAST 6 MONTHS? YES . ANY NEW EXTREMITY NUMBNESS OR WEAKNESS? NO . CARDIOLOGY: DO YOU HAVE A PACEMAKER OR DEFIBRILLATOR? NO . RESPIRATORY: HAVE YOU BEEN SICK IN THE PAST WEEK? NO . FEVER NO . FLU LIKE SYMPTOMS? NO . COUGH NO . INTEGUMENTARY: DO YOU HAVE ANY RASHES OR OPEN SORES? NO . ALLERGIC/IMMUNO: ARE YOU ALLERGIC TO SHELLFISH OR IV DYE? NO . ANY NEW ALLERGIES? NO . PSYCHIATRIC: DO YOU HAVE THOUGHTS OF HURTING YOURSELF OR SOMEONE ELSE? NO . ARE YOU ABUSED, NEGLECTED, OR IN AN UNSAFE ENVIRONMENT? NO . ENDOCRINOLOGY: ARE YOU DIABETIC? NO . OTHER: DO YOU NEED ANY PRESCRIPTIONS? YES, . IF YES, PLEASE LIST: SOMA . ANY NEW PROBLEMS WITH YOUR MEDICATIONS? NO . WHEN DID YOU LAST EAT? ____ . WHEN DID YOU LAST DRINK? ____ . WHAT DID YOU LAST DRINK? ____ . NAME OF PERSON DRIVING YOU HOME? ____ . DO YOU HAVE ANY OTHER QUESTIONS OR CONCERNS YES, PLEASE WEAN OFF BUTRANS PATCH- 10- 7.5- 5. NEED TO SCHEDULE BOTOX [place] HAVE HAD MIGRAINES SINCE LAST VISIT. WENT TO THE ER THURSDAY EVENING FOR MIGRAINE PAIN. . REVIEWED BY: PROVIDER: DOLORES VILLARREAL MD . VITAL SIGNS WT 190 LBS, HT 66 IN, BMI 30.66 INDEX, BP 123/67 MM HG, HR 72 /MIN, RR 18 /MIN, TEMP 97.5 F, OXYGEN SAT % 99%, NA INITIALS SC 15:12, REVIEWED BY: MARGARITA. EXAMINATION : PATIENT IS ALERT O X 3 AND COOPERATIVE. MRI OF THE LUMBAR SPINE DONE ON 09/26/14 SHOWS FACET HYPERTROPHY AT L4-L5 AND L5-S1 AND DISC BULGE AT L3-L4 AND L4-L5. ASSESSMENTS CHRONIC MIGRAINE WITHOUT AURA, NOT INTRACTABLE, WITHOUT STATUS MIGRAINOSUS - G43.709 (PRIMARY) TREATMENT CHRONIC MIGRAINE WITHOUT AURA, NOT INTRACTABLE, WITHOUT STATUS MIGRAINOSUS NOTES: WE DISCUSSED SEVERAL ISSUES WITH MRS. BREWER'S PAIN MANAGEMENT CASE. AT THIS TIME THE PATIENT WILL CONTINUE WITH THE SAME MEDICATION REGIME BEFORE. PATIENT DENIES ABUSE OF ANY MEDICATION, DENIES USE OF ILLEGAL SUBSTANCES, AND STATES THAT SHE ONLY USES THE MEDICATION FOR PAIN MANAGEMENT. URINE TOXICOLOGY REPORT DONE ON 05/01/26 WAS REVIEWED. AFTER EXAMINING AND DISCUSSING WITH THE PATIENT, SHE IS A CANDIDATE FOR A BOTOX INJECTION. WE DISCUSSED THE RISK, BENEFITS, AND ALTERNATIVES AND THE PATIENT WOULD LIKE TO PROCEED. PATIENT WILL BE BOOKED PENDING APPROVAL. PATIENT WILL FOLLOW UP WITH ME IN 4 WEEKS. INSTRUCTIONS WERE GIVEN, QUESTIONS WERE ANSWERED, PATIENT REPORTS UNDERSTANDING AND AGREES WITH THE PLAN. I, KING CARR, DOCUMENTED THE ABOVE INFORMATION ACTING A SCRIBE FOR DR. VILLARREAL. I HAVE REVIEWED THE ABOVE DOCUMENT, WRITTEN BY KING CARR SCRIBE AND I VERIFY THAT IT IS ACCURATE. OTHERS REFILL CARISOPRODOL TABLET, 350 MG, 1 TABLET, ORALLY, Q 8 HRS NEEDED MDD=2, 30 DAY(S), 60, REFILLS 0 REFILL BUTRANS PATCH WEEKLY, 10 MCG/HR, 1 PATCH TO SKIN, TRANSDERMAL, 1 PATCH Q 7 DAYS MDD 1 PATCH Q 7 DAYS, 30 DAY(S), 4, REFILLS 0 PREVENTIVE MEDICINE PAIN CLINIC TEACHING: PROCEDURE TEACHING PRE BOTOX PROCEDURE INSTRUCTIONS REVIEWED WITH PT. VERBALZIED UNDERSTANDING.. PROCEDURE CODES FA211 ESTABILISHED PATIENT [facility] CHARGE G8730 PAIN ASSESS POS TOOL F/U PLAN DOC G8427 DOC MEDS VERIFIED W/PT OR RE DISPOSITION & COMMUNICATION FOLLOW UP 4 WEEKS, BTX PENDING APPROVAL ELECTRONICALLY SIGNED BY DOLORES VILLARREAL MD ON 08/25/2016 AT 06:22 PM EDT DISCLAIMER : THIS IS A VISIT SUMMARY EXTRACTED FROM THE [employer] CHART. IT IS NOT A COPY OF THE [employer] PROGRESS NOTE. LESLIE
== END ==
LOC: M PAIN 15:00
PROVIDERS: ATTEND Anesthesiology
DX: G43.709 Chronic migraine without aura, not intractable, without status migrainosus (principal); M54.2 Cervicalgia; M54.5 Low back pain; B20 Human immunodeficiency virus [HIV] disease; E03.9 Hypothyroidism, unspecified; M79.7 Fibromyalgia; L40.9 Psoriasis, unspecified; F33.9 Major depressive disorder, recurrent, unspecified; Z91.013 Allergy to seafood; Z88.8 Allergy status to other drugs, medicaments and biological substances; Z79.899 Other long term (current) drug therapy

== ENCOUNTER → 2016-08-13 | Outpatient (CLI) | payer MEDICARE, MEDICAID ==
[~2016-08-13] MED LIST changes: +BOTULINUM INJ 100 UNITS (J0585) IM ONE; +diazePAM 5 MG TAB As Ordered ONE; +oxyCODONE 5MG TAB As Ordered ONE
--- NOTE | 2016-08-17 23:22 | ECWPNPC ---
PATIENT NAME: DEANDRA BREWER : 1975 GENDER: FEMALE VISIT DATE: 08/13/2016 DISCHARGE DATE: 08/13/16 1110 VISIT LOCKED DATE TIME: PHYSICIAN: DOLORES VILLARREAL RESOURCE: DOLORES VILLARREAL REASON FOR APPOINTMENT 1. BOTOX PAST 3 MONTHS HISTORY OF PRESENT ILLNESS HISTORY OF PRESENT ILLNESS: PAIN THE PATIENT DESCRIBES THE PAIN... FALL RISK SCREENING: SCREENING :NO FALLS IN THE PAST YEAR CURRENT MEDICATIONS TAKING ATIVAN 1 MG TABLET 1 TABLET ORALLY TWICE DAILY, NOTES: 08/12 5PM TAKING AMMONIUM LACTATE 12 % CREAM 1 APPLICATION TO AFFECTED AREA EXTERNALLY TWICE A DAY TO DRY SKIN, NOTES: 08/12 9AM TAKING DERMASMOOTHE/FS 0.01% OIL DIRECTED TOPICALLY 2-3X/WEEK X 4 WEEKS, NOTES: HAVE NOT USED YET TAKING GABAPENTIN 100 MG CAPSULE DIRECTED ORALLY 1 CAP DAILY NEEDED FOR PAIN, NOTES: 08/12 6PM TAKING GENVOYA [id number] MG TABLET DIRECTED ORALLY ONCE DAILY, NOTES: 08/12 6PM TAKING CYTOMEL 10 MG TABLET 2 TABLET ON AN EMPTY STOMACH ORALLY ONCE A DAY, NOTES: 08/13 6AM TAKING SYNTHROID 150 MCG TABLET 1 TABLET ORALLY ONCE A DAY, NOTES: 08/13 6AM TAKING ADDERALL XR 30 MG CAPSULE EXTENDED RELEASE 24 HOUR 1 CAPSULE ORALLY DAILY, NOTES: 08/12 9AM TAKING ONDANSETRON 8 MG TABLET DISPERSIBLE 1 TABLET ON THE TONGUE AND ALLOW TO DISSOLVE ORALLY EVERY 8 HRS NEEDED, NOTES: 08/12 9AM TAKING MIRENA 20 MCG/24HR INTRAUTERINE DEVICE INTRAUTERINE , NOTES: IN PLACE TAKING SUDAFED 30 MG TABLET 1 TABLET NEEDED ORALLY EVERY 6 HRS PRN, NOTES: 4 DAYS AGO TAKING SALINE NASAL SPRAY 0.65 % SOLUTION 2 DROPS IN EACH NOSTRIL NEEDED NASALLY EVERY 2 HRS, NOTES: NONE LATELY TAKING ZYRTEC 1 TAB ORAL NEEDED, NOTES: NONE LATELY TAKING KETOROLAC TROMETHAMINE 10 MG TABLET 1 TABLET NEEDED ORALLY EVERY 6 HRS PRN FOR PAIN, NOTES: NONE LATELY TAKING ATENOLOL 50 MG TABLET 1 TABLET ORALLY ONCE A DAY, NOTES: 08/13 6AM TAKING ZOLOFT 100 MG TABLET 3 TABLETS ORALLY ONCE A DAY, NOTES: 08/13 6AM TAKING PATADAY 0.2 % SOLUTION DIRECTED OPHTHALMIC ONCE DAILY, NOTES: NONE LATELY TAKING VITAMIN D (ERGOCALCIFEROL) 22377 UNIT CAPSULE 1 CAPSULE ORALLY WEEKLY, NOTES: LAST WEEK TAKING SINGULAIR 10 MG TABLET 1 TABLET IN THE EVENING ORALLY ONCE A DAY, NOTES: NONE LATELY TAKING [id number] 50-300-40 MG CAPSULE 1 CAPSULE NEEDED ORALLY EVERY 6 HRS PRN, NOTES: 08/13 6AM TAKING CLOBETASOL PROPIONATE 0.05 % SOLUTION 1 APPLICATION TO AFFECTED AREA EXTERNALLY BID PRN, NOTES: 2 DAYS AGO TAKING QNASL 80 MCG/ACT AEROSOL SOLUTION 2 PUFFS IN EACH NOSTRIL NASALLY ONCE A DAY, NOTES: LAST WEEK TAKING IBUPROFEN 800 MG TABLET 1 TABLET ORALLY WITH FOOD THREE TIMES A DAY NEEDED FOR PAIN MDD3, NOTES: 08/13 6AM TAKING OXYCODONE HCL 5 MG TABLET 1 TABLET NEEDED ORALLY EVERY 6 HOURS NEEDED FOR PAIN MDD3, NOTES: 08/12 12NOON TAKING BENADRYL 25 MG TABLET 1 TABLET NEEDED ORALLY BEFORE BEDTIME, NOTES: 08/11 10AM TAKING CARISOPRODOL 350 MG TABLET 1 TABLET ORALLY Q 8 HRS NEEDED MDD=2, NOTES: 08/12 9AM TAKING BUTRANS 10 MCG/HR PATCH WEEKLY 1 PATCH TO SKIN TRANSDERMAL 1 PATCH Q 7 DAYS MDD 1 PATCH Q 7 DAYS, NOTES: 08/10 AM NOT-TAKING FLUCONAZOLE 150 MG TABLET TAKE ONE TABLET BY MOUTH WEEKLY NEEDED UNKNOWN LAC-HYDRIN 12 % LOTION 1 APPLICATION TO AFFECTED AREA EXTERNALLY TO AFFECTED AREAS OF SKIN ON SCALP, ARMS, LEGS TWICE A DAY MEDICATION LIST REVIEWED AND RECONCILED WITH THE PATIENT PAST MEDICAL HISTORY HIV POSITIVE 1997, TREATED WITH COMBIVIR DURING HER PREGNANCIES, ATRIPLA GAVE HER ABDOMINAL PAIN 09/[address] ROWAN FROM [facility] PAXIL DISCONTINUED/ADERALL FOR ADD/ KATHRYN ANXIETY 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 NO . CHILLS NO . FEVER NO . INFECTION: DO YOU HAVE NEW INFECTIONS? NO . DO YOU HAVE HISTORY OF MRSA? NO . MUSCULOSKELETAL: ANY NEW PATTERNS OF PAIN OR NUMBNESS? NO . GASTROENTEROLOGY: ANY NEW CHANGE IN BOWEL CONTROL? NO . GENITOURINARY: ANY NEW CHANGE IN BLADDER CONTROL? NO . IS THERE A CHANCE YOU COULD BE ? NO . HEMATOLOGY/LYMPH: DO YOU TAKE ANY BLOOD THINNERS? (FOR EXAMPLE- COUMADIN, PLAVIX, AGGRENOX, PLATEL, PRADAXA, OR XARELTO) NO . WHEN WAS YOUR LAST DOSE? DATE: TIME: . NEUROLOGY: HAVE YOU FALLEN IN THE PAST 6 MONTHS? YES, PT STATES THAT SHE FALLS FREQUENTLY AT HOME, NO INJURY NOTED, NO REPORT TO ED. . ANY NEW EXTREMITY NUMBNESS OR WEAKNESS? NO . CARDIOLOGY: DO YOU HAVE A PACEMAKER OR DEFIBRILLATOR? NO . RESPIRATORY: HAVE YOU BEEN SICK IN THE PAST WEEK? NO . FEVER NO . FLU LIKE SYMPTOMS? NO . COUGH NO . INTEGUMENTARY: DO YOU HAVE ANY RASHES OR OPEN SORES? NO . ALLERGIC/IMMUNO: ARE YOU ALLERGIC TO SHELLFISH OR IV DYE? NO . ANY NEW ALLERGIES? NO . PSYCHIATRIC: DO YOU HAVE THOUGHTS OF HURTING YOURSELF OR SOMEONE ELSE? NO . ARE YOU ABUSED, NEGLECTED, OR IN AN UNSAFE ENVIRONMENT? NO . ENDOCRINOLOGY: ARE YOU DIABETIC? NO . OTHER: DO YOU NEED ANY PRESCRIPTIONS? NO . IF YES, PLEASE LIST: ____ . ANY NEW PROBLEMS WITH YOUR MEDICATIONS? NO . WHEN DID YOU LAST EAT? 08/12 6:30PM . WHEN DID YOU LAST DRINK? 08/13 6AM . WHAT DID YOU LAST DRINK? WATER . NAME OF PERSON DRIVING YOU HOME? TAXI . DO YOU HAVE ANY OTHER QUESTIONS OR CONCERNS NO . REVIEWED BY: PROVIDER: . VITAL SIGNS WT 190 LBS, HT 66 IN, BMI 30.66 INDEX, BP 115/66 MM HG, HR 63 /MIN, RR 18 /MIN, TEMP 96.4 F, OXYGEN SAT % 100%, SAFE IN ENV? (Y/N) Y, NA INITIALS [place] 08:59, REVIEWED BY: REENA. ASSESSMENTS CHRONIC MIGRAINE WITHOUT AURA, NOT INTRACTABLE, WITHOUT STATUS MIGRAINOSUS - G43.709 (PRIMARY) PROCEDURES PN BOTOX INJECTIONS SUBSEQUENT INJECTIONS PRE PROCEDURE DIAGNOSIS CHRONIC MIGRAINE HEADACHES POST PROCEDURE DIAGNOSIS CHRONIC MIGRAINE HEADACHES PROCEDURE BOTOX INJECTION AT THE HEAD, NECK AND SHOULDERS SURGEON DR. DOLORES VILLARREAL IT INTEGRATION ARCHITECT NONE ANESTHESIA NONE PRE PROCEDURE NOTE THE PATIENT HAS HISTORY OF CHRONIC MIGRAINE HEADACHES. I EVALUATE THE PATIENT AND REVIEWED THE CHART. I WENT OVER THE RISKS, ALTERNATIVES, AND BENEFITS ASSOCIATED WITH THIS PROCEDURE. THE PATIENT WOULD LIKE TO PROCEED AND GIVE CONSENT TO PERFORMED THE PROCEDURE. THE PATIENT DENIES UNEXPLAINABLE WEIGHT LOSS, FEVER, CHILLS, OR NEW CHANGES IN URINARY OR BOWEL CONTROL. THE PATIENT DID A BOTOX INJECTION AT THE HEAD, NECK AND SHOULDERS 3 MONTHS AGO AND EXPRESSED MORE THAN 50% REDUCTION ON THE FREQUENCY AND INTENSITY OF THE HEADACHES. THE PATIENT EXPRESS THAT THE USE OF BOTOX HAS REDUCE SIGNIFICANTLY THE SEVERITY OF THE HEADACHES AND EXPRESSED THAT WANT TO RECEIVE THIS PROCEDURE AGAIN TODAY DESCRIPTION OF PROCEDURE THE PATIENTS WAS BROUGHT TO THE PROCEDURE ROOM AND PLACED IN THE SUPINE POSITION. I CHECKED LATERALITY AND THE AREAS WHERE THE PROCEDURE WAS GOING TO BE PERFORMED WITH THE PATIENT AND THE SUPPORTING STAFF AT THE MOMENT OF THE TIME OUT IN THE PROCEDURE ROOM. FOR THE PROCEDURE I USED A SOLUTION OF 5 UNITS OF BOTOX PER EACH 0.1 ML OF THE SOLUTION. I USED A 30-GAUGE NEEDLE TO INJECT THE SOLUTION AT THE SELECTED LOCATIONS. I INJECTED FIRST THE RIGHT AND LEFT BAKER DOUGHNUT MUSCLES. THE LANDMARK FOR BOTH INJECTIONS WAS APPROXIMATELY 1 CM ABOVE THE SUPERIOR MEDIAL EDGE OF THE EYEBROW. AFTER THESE TWO INJECTIONS, I INJECTED THE PROCERUS MUSCLE AT THE MIDLINE POINT BETWEEN THESE FIRST TWO INJECTIONS. THEN I PROCEEDED TO INJECT THE RIGHT AND LEFT FRONTALIS MUSCLE. TWO INJECTIONS WERE DONE IN EACH SIDE. THE FIRST INJECTION WAS DONE APPROXIMATELY 2 CM ABOVE THE FIRST INJECTION OF THE BAKER DOUGHNUT. THE SECOND INJECTION WAS DONE APPROXIMATELY 1.5 CM LATERAL TO THIS FIST INJECTION OF THE FRONTALIS OF EACH SIDE. AFTER THE INJECTIONS OVER THE FOREHEAD WERE DONE, THE PATIENT'S HEAD WAS TURNED TO THE LEFT SIDE AND WE STARTED TO WORK WITH THE RIGHT TEMPORALIS MUSCLE. FIRST INJECTION WAS DONE IN A VERTICAL LINE OF THE TRAGUS APPROXIMATELY 3 CM ABOVE THE TRAGUS. THE SECOND INJECTION WAS DONE APPROXIMATELY 2 CM ABOVE THE FIRST INJECTION. THE THIRD INJECTION WAS DONE APPROXIMATELY 1 CM FRONT ROBERTSON FROM THIS VERTICAL LINE CREATED AT THE LEVEL OF THE TRAGUS, [facility] BETWEEN THESE TWO INJECTIONS. THE FOURTH INJECTION WAS DONE APPROXIMATELY 1.5 CM BACK FROM THE SECOND INJECTION TO THE TEMPORALIS IN LINE TO THE MIDPORTION OF THE EAR. THEN, WE PROCEEDED TO INJECT THE LEFT TEMPORALIS MUSCLE. WE CLEANED THE AREA WITH ALCOHOL AND PROCEEDED TO PERFORM THE SAME FOR INJECTIONS DESCRIBED ABOVE BUT IN THE LEFT TEMPORALIS MUSCLE USING THE SAME LANDMARKS. AFTER THESE INJECTIONS WERE DONE, THE PATIENT WAS SEATED. FIRST, WE STARTED TO INJECT THE LEFT AND RIGHT OCCIPITALIS MUSCLE. I INJECTED AT THE FOLLOWING PLACES IN THE RIGHT AND LEFT MUSCLE. THE FIRST INJECTION WAS DONE AT THE MIDPOINT POSITION BETWEEN THE MASTOID PROCESS AND THE INION OF THE OCCIPITAL PROTUBERANCE. THE SECOND INJECTION WAS DONE APPROXIMATELY 1.5 CM SUPERIOR AND LATERAL OF THIS POINT. THE THIRD INJECTION WAS DONE APPROXIMATELY 1.5 CM SUPERIOR AND MEDIAL TO THIS FIRST INJECTION. THEN, I PROCEEDED TO INJECT THE RIGHT AND LEFT PARASPINAL MUSCLES. LANDMARK OF THE INJECTION WERE APPROXIMATELY: FIRST INJECTION 3 CM BELOW THE INION AND 1 CM LATERAL TO THE MIDLINE AND SECOND INJECTION AT EACH SIDE WAS DONE APPROXIMATELY 1.5 CM SUPERIOR AND LATERAL OF THE FIRST INJECTION. THE LAST GROUP OF INJECTIONS WAS DONE OVER THE RIGHT AND LEFT TRAPEZIUS MUSCLE OVER THE SHOULDERS AREA. THE FIRST INJECTION WAS DONE AT THE MIDPOINT BETWEEN THE INFLECTION POINT BETWEEN THE NECK AND SHOULDER AND THE ACROMION. THE SECOND AND THIRD INJECTIONS WERE DONE APPROXIMATELY 2.5 CM LATERAL AND MEDIAL FROM THIS FIRST INJECTION. SAME TARGETS WERE USED IN THE RIGHT AND LEFT SIDE. IN TOTAL, I INJECTED 155 UNITS OF BOTOX. PROCEDURE WAS DONE WITHOUT EVIDENCE OF PARESTHESIA, PNEUMOTHORAX, OR ANY COMPLICATIONS. THE PATIENT TOLERATED THE PROCEDURE VERY WELL. THE PATIENT WAS SENT TO THE RECOVERY ROOM FOR OBSERVATIONS. INJECTIONS WERE DONE AFTER CLEANING WITH ALCOHOL, USING ASEPTIC TECHNIQUES POST PROCEDURE NOTE THE PROCEDURE DONE WAS DISCUSSED WITH THE PATIENT. THE PATIENT WILL BE SEEN IN A FOLLOW UP IN THE NEXT FEW WEEKS. INSTRUCTIONS WERE GIVEN, QUESTIONS WERE ANSWERED, AND THE PATIENT EXPRESSED UNDERSTANDING AND AGREES WITH THE PLAN. I, LIZ FIGUEROA, DOCUMENTED THE ABOVE INFORMATION ACTING A SCRIBE FOR DR. VILLARREAL. I HAVE REVIEWED THE ABOVE DOCUMENT, WRITTEN BY LIZ HARRISON AND I VERIFY THAT IT IS ACCURATE PROCEDURE CODES 23631 [facility]MOD[facility]ERV [facility] [place] [facility] DIS[facility] & COMMUNICATION FOLLOW UP 3 WEEKS ELECTRONICALLY SIGNED BY DOLORES VILLARREAL MD ON 08/17/2016 AT 01:56 PM EDT DISCLAIMER : THIS IS A VISIT SUMMARY EXTRACTED FROM THE [employer] CHART. IT IS NOT A COPY OF THE [employer] PROGRESS NOTE. LESLIE
== END ==
LOC: M PAIN 08:40
PROVIDERS: ATTEND Anesthesiology
DX: G43.709 Chronic migraine without aura, not intractable, without status migrainosus (principal); B20 Human immunodeficiency virus [HIV] disease; E03.9 Hypothyroidism, unspecified; F32.9 Major depressive disorder, single episode, unspecified; F41.9 Anxiety disorder, unspecified; G43.909 Migraine, unspecified, not intractable, without status migrainosus; Z91.013 Allergy to seafood; Z88.8 Allergy status to other drugs, medicaments and biological substances; Z79.891 Long term (current) use of opiate analgesic; Z79.899 Other long term (current) drug therapy; Z91.81 History of falling
CPT/HCPCS: 64615; J0585

== ENCOUNTER → 2016-08-28 | Outpatient (REF) | payer MEDICARE, MEDICAID ==
[~2016-08-28] MED LIST changes: -ADDE20CA PO; +ADDE20CA3 PO; -ADDE30CA PO; +ADDE30CA3 PO; +AMBI10TA PO; -BOTULINUM INJ 100 UNITS (J0585) IM ONE; +BUPRENORPHINE; +BUPRENORPHINE TD; +CEPH500T PO; +CLEO300C2 PO; +CYCL10TA PO; +DIFL200T PO; +GABA-279 PO; +KEFL500C17 PO; +LEVA750T7 PO; +LORA1TAB12 PO; -MELA0.02 PO; +MELA3TAB49 PO; +METR1TAB66; +PRED20TA PO; +SERT-138; +SING10TA32 PO; -STRITAB PO; +STRITAB2 PO; +SULFAMETHOXAZOLE-TMP; +TRAZ50TA11 PO; -TRAZ50TA4 PO; +ZOFR4TAB3 PO; +ZYRT10CA PO; -diazePAM 5 MG TAB As Ordered ONE; -oxyCODONE 5MG TAB As Ordered ONE
== END ==
LOC: M SFHCPLAZ 17:01
PROVIDERS: ATTEND Internal Medicine Infectious Disease
DX: J01.00 Acute maxillary sinusitis, unspecified (principal)
CPT/HCPCS: 87880; 90471; 90733; G0463

== ENCOUNTER → 2016-09-23 | Outpatient (CLI) | payer MEDICARE, MEDICAID ==
--- NOTE | 2016-10-07 23:35 | ECWPNPC ---
PATIENT NAME: DEANDRA BREWER : 1975 GENDER: FEMALE VISIT DATE: 09/23/2016 DISCHARGE DATE: 09/23/16 1650 VISIT LOCKED DATE TIME: PHYSICIAN: DOLORES VILLARREAL RESOURCE: DOLORES VILLARREAL REASON FOR APPOINTMENT 1. NECK, BACK MIGRAINE PAIN HISTORY OF PRESENT ILLNESS HISTORY OF PRESENT ILLNESS: PAIN THE PATIENT DESCRIBES THE PAIN... 41 YEAR OLD FEMALE PATIENT WITH HISTORY OF CHRONIC NECK AND BACK PAIN. PATIENT DESCRIBES THE PAIN ACHING, BURNING, SHARP, STABBING, TENDER, THROBBING, SORE, SHOOTING, IT COMES AND GOES, AND HAVING IT ALL THE TIME WITH A PAIN SCORE OF 10/10 ON TODAY'S VISIT. PATIENT RECEIVED A BOTOX INJECTION FOR MIGRAINES ON 08/13/16 AND STATES THAT HER HEADACHES HAVE DECREASED SIGNIFICANTLY AND ONLY REPORTS HAVING ABOUT 10 MIGRAINES A MONTH. PATIENT STATES THAT ANY TYPE OF ACTIVITY INCREASES THE PAIN IN HER NECK AND BACK. PATIENT DENIES UNEXPLAINABLE WEIGHT LOSS, FEVER, CHILLS, NEW CHANGES ON HER URINARY OR BOWEL CONTROL. FALL RISK SCREENING: SCREENING :NO FALLS IN THE PAST YEAR CURRENT MEDICATIONS TAKING CYTOMEL 10 MG TABLET 2 TABLET ON AN EMPTY STOMACH ORALLY ONCE A DAY TAKING SYNTHROID 150 MCG TABLET 1 TABLET ORALLY ONCE A DAY TAKING ADDERALL XR 30 MG CAPSULE EXTENDED RELEASE 24 HOUR 1 CAPSULE ORALLY DAILY TAKING ZOLOFT 100 MG TABLET 3 TABLETS ORALLY ONCE A DAY TAKING ATIVAN 1 MG TABLET 1 TABLET ORALLY TWICE DAILY TAKING AMMONIUM LACTATE 12 % CREAM 1 APPLICATION TO AFFECTED AREA EXTERNALLY TWICE A DAY NEEDED TO DRY SKIN TAKING MIRENA 20 MCG/24HR INTRAUTERINE DEVICE INTRAUTERINE TAKING KETOROLAC TROMETHAMINE 10 MG TABLET 1 TABLET NEEDED ORALLY EVERY 6 HRS PRN FOR PAIN TAKING ATENOLOL 50 MG TABLET 1 TABLET ORALLY ONCE A DAY TAKING PATADAY 0.2 % SOLUTION DIRECTED OPHTHALMIC ONCE DAILY NEEDED TAKING SINGULAIR 10 MG TABLET 1 TABLET IN THE EVENING ORALLY ONCE A DAY NEEDED TAKING [id number] 50-300-40 MG CAPSULE 1 CAPSULE NEEDED ORALLY EVERY 6 HRS PRN TAKING QNASL 80 MCG/ACT AEROSOL SOLUTION 2 PUFFS IN EACH NOSTRIL NASALLY ONCE A DAY NEEDED TAKING IBUPROFEN 800 MG TABLET 1 TABLET ORALLY WITH FOOD THREE TIMES A DAY NEEDED FOR PAIN MDD3 TAKING BENADRYL 25 MG TABLET 1 TABLET NEEDED ORALLY BEFORE BEDTIME TAKING FLUCONAZOLE 150 MG TABLET TAKE ONE TABLET BY MOUTH WEEKLY NEEDED TAKING VITAMIN D (ERGOCALCIFEROL) 32986 UNIT CAPSULE 1 CAPSULE ORALLY WEEKLY TAKING OXYCODONE HCL 5 MG TABLET 1 TABLET NEEDED ORALLY EVERY 6 HOURS NEEDED FOR PAIN MDD3 TAKING BUTRANS 10 MCG/HR PATCH WEEKLY 1 PATCH TO SKIN TRANSDERMAL 1 PATCH Q 7 DAYS MDD 1 PATCH Q 7 DAYS TAKING CARISOPRODOL 350 MG TABLET 1 TABLET ORALLY Q 8 HRS NEEDED MDD=2 TAKING GABAPENTIN 100 MG CAPSULE DIRECTED ORALLY 1 CAP DAILY NEEDED FOR PAIN TAKING CLOBETASOL PROPIONATE 0.05 % SOLUTION 1 APPLICATION TO AFFECTED AREA EXTERNALLY BID PRN TAKING DULCOLAX 5 MG TABLET DELAYED RELEASE 1 TABLET NEEDED ORALLY ONCE A DAY PRN TAKING SUDAFED 30 MG TABLET 1 TABLET NEEDED ORALLY EVERY 6 HRS PRN TAKING SALINE NASAL SPRAY 0.65 % SOLUTION 2 DROPS IN EACH NOSTRIL NEEDED NASALLY EVERY 2 HRS TAKING GENVOYA [id number] MG TABLET DIRECTED ORALLY ONCE DAILY TAKING CETIRIZINE HCL 10 MG TABLET 1 TABLET ORALLY ONCE A DAY TAKING ZOFRAN 8 MG TABLET 1 TABLET ORALLY ONCE A DAY NEEDED TAKING SENOKOT S 8.6-50 MG TABLET 2 TABLET IN THE EVENING NEEDED ORALLY BEFORE BEDTIME TAKING DERMASMOOTHE/FS 0.01% OIL DIRECTED TOPICALLY 2-3X/WEEK X 4 WEEKS NOT-TAKING LEVOFLOXACIN 750 MG TABLET 1 TABLET ORALLY ONCE A DAY NOT-TAKING ONDANSETRON 8 MG TABLET DISPERSIBLE 1 TABLET ON THE TONGUE AND ALLOW TO DISSOLVE ORALLY EVERY 8 HRS NEEDED, NOTES: 08/12 9AM NOT-TAKING ZYRTEC 1 TAB ORAL NEEDED, NOTES: NONE LATELY NOT-TAKING CALCIUM 600 MG TABLET 1 TABLET WITH MEALS ORALLY TWICE A DAY MEDICATION LIST REVIEWED AND RECONCILED WITH THE PATIENT PAST MEDICAL HISTORY HIV POSITIVE 1997, TREATED WITH COMBIVIR DURING HER PREGNANCIES, ATRIPLA GAVE HER ABDOMINAL PAIN 09/[address] ROWAN FROM [facility] DISCONTINUED/ADERALL FOR ADD/ KATHRYN ANXIETY 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 LEFT ACL RUPTURE MIGRAINE BACTERIAL VAGINOSIS UTI TEETH EXTRACTION IUD MERENA 04/2013 AT [facility]ANNED [facility] HERPES SIMPLEX TYPE II IGG POSITIVE SEROLOGY 06/2011 HERPES ORALIS ALLERGIES SEAFOOD: HIVES: ALLERGY ABACAVIR SULFATE: HEADACHE,MIGRAINE,NAUSEA: ALLERGY METAXALONE: WEIGHT GAIN, FATIGUE: SIDE EFFECTS SUMATRIPTAN: PANIC ATTACK, REBOUND HEADACHE: SIDE EFFECTS LYRICA: SWELLING IN LEG: SIDE EFFECTS SURGICAL HISTORY D & C CHOLECYSTECTOMY TUBAL LIGATION LEFT KNEE SCOPE SOCIAL HISTORY GENERAL: TOBACCO USE ARE YOU A:FORMER SMOKER HOW LONG HAS IT BEEN SINCE YOU LAST SMOKED?6-12 MONTHS BMI CARE GOAL FOLLOW-UP ABOVE NORMAL BMI FOLLOW-UPGIVING ENCOURAGEMENT TO EXERCISE RECREATIONAL DRUG USE DRUG USE?NO PATIENT DENIES ABUSE OR MISSUSED OF ANY MEDICATION. PATIENT DENIES USE OF ANY ILLEGAL SUBSTANCE INCLUDING MARIJUANA OR COCAINE. HIV / HEP-C SCREENING HIV TEST OFFERED TO PATIENT:YES DATE OFFERED:08/28/2016 TEST ACCEPTED: PREV TEST HEP-C TEST OFFERED TO PATIENT:YES DATE OFFERED:08/28/2016 TEST ACCEPTED: PREV TEST EXERCISE: WALKS. BUDDHIST [id number] AGNOSTIC LANGUAGE LANGUAGES SPOKEN:YAKUT LEARNING BARRIERS / SPECIAL NEEDS BARRIERS TO LEARNING?NO HEARING IMPAIRED?NO VISION IMPAIRED?YES :CORRECTIVE LENSES READINESS TO LEARN?YES LEARNING PREFERENCES?NO LEARNING CAPABILITIES PRESENT?YES EMOTIONAL BARRIERS?NO SPECIAL DEVICES?NO LICSW NEEDED?NO PAIN CLINIC PFS, CLERGY, PUBLIC HEALTH REFERRALS CLERGY REFERRAL NEEDED?NO WAS THE PROVIDER NOTIFIED OF ANY PERTINENT INFO?NO PFS REFERRAL NEEDED?NO PUBLIC HEALTH REFERRAL NEEDED?NO PATIENT: ____. MOVED ABOUT 2 WEEKS AGO. HOSPITALIZATION/MAJOR DIAGNOSTIC PROCEDURE RELATED TO SURGERY REVIEW OF SYSTEMS REVIEWED BY: PROVIDER: . CONSTITUTIONAL: ANY CHANGE IN YOUR MEDICAL CONDITION? YES . CHILLS NO . FEVER NO . INFECTION: DO YOU HAVE NEW INFECTIONS? NO . DO YOU HAVE HISTORY OF MRSA? NO . MUSCULOSKELETAL: ANY NEW PATTERNS OF PAIN OR NUMBNESS? YES, LEFT KNEE - SAW ORTHO, FACING TOTAL KNEE REPLACEMENT; IS CAUSING GOOD KNEE TO HURT A LOT . GASTROENTEROLOGY: ANY NEW CHANGE IN BOWEL CONTROL? NO . GENITOURINARY: ANY NEW CHANGE IN BLADDER CONTROL? NO . IS THERE A CHANCE YOU COULD BE ? NO . HEMATOLOGY/LYMPH: DO YOU TAKE ANY BLOOD THINNERS? (FOR EXAMPLE- COUMADIN, PLAVIX, AGGRENOX, PLATEL, PRADAXA, OR XARELTO) NO . WHEN WAS YOUR LAST DOSE? DATE: TIME: . NEUROLOGY: HAVE YOU FALLEN IN THE PAST 6 MONTHS? NO . ANY NEW EXTREMITY NUMBNESS OR WEAKNESS? NO . CARDIOLOGY: DO YOU HAVE A PACEMAKER OR DEFIBRILLATOR? NO . RESPIRATORY: HAVE YOU BEEN SICK IN THE PAST WEEK? NO . FEVER NO . FLU LIKE SYMPTOMS? NO . COUGH NO . INTEGUMENTARY: DO YOU HAVE ANY RASHES OR OPEN SORES? NO . ALLERGIC/IMMUNO: ARE YOU ALLERGIC TO SHELLFISH OR IV DYE? NO . ANY NEW ALLERGIES? NO . PSYCHIATRIC: DO YOU HAVE THOUGHTS OF HURTING YOURSELF OR SOMEONE ELSE? NO . ARE YOU ABUSED, NEGLECTED, OR IN AN UNSAFE ENVIRONMENT? NO . ENDOCRINOLOGY: ARE YOU DIABETIC? NO . OTHER: DO YOU NEED ANY PRESCRIPTIONS? YES . IF YES, PLEASE LIST: BUTRANS 7.5 . ANY NEW PROBLEMS WITH YOUR MEDICATIONS? NO . WHEN DID YOU LAST EAT? ____ . WHEN DID YOU LAST DRINK? ____ . WHAT DID YOU LAST DRINK? ____ . NAME OF PERSON DRIVING YOU HOME? ____ . DO YOU HAVE ANY OTHER QUESTIONS OR CONCERNS NO . VITAL SIGNS WT 195.7 LBS, HT 66 IN, BMI 31.58 INDEX, BP 116/73 MM HG, HR 87 /MIN, RR 16 /MIN, TEMP 97.9 F, OXYGEN SAT % 98%, NA INITIALS TL 1533, REVIEWED BY: ZULEIKA. EXAMINATION : PATIENT IS ALERT O X 3 AND COOPERATIVE. MRI OF THE LUMBAR SPINE DONE ON 09/26/14 SHOWS FACET HYPERTROPHY AT L4-L5 AND L5-S1 AND DISC BULGE AT L3-L4 AND L4-L5. ASSESSMENTS CHRONIC MIGRAINE WITHOUT AURA, NOT INTRACTABLE, WITHOUT STATUS MIGRAINOSUS - G43.709 (PRIMARY) TREATMENT CHRONIC MIGRAINE WITHOUT AURA, NOT INTRACTABLE, WITHOUT STATUS MIGRAINOSUS NOTES: WE DISCUSSED SEVERAL ISSUES WITH MRS. BREWER'S PAIN MANAGEMENT CASE. AT THIS TIME THE PATIENT WILL CONTINUE WITH THE SAME MEDICATION REGIME BEFORE. PATIENT DENIES ABUSE OF ANY MEDICATION, DENIES USE OF ILLEGAL SUBSTANCES, AND STATES THAT SHE ONLY USES THE MEDICATION FOR PAIN MANAGEMENT. URINE TOXICOLOGY REPORT DONE ON 05/01/26 WAS REVIEWED. AT THIS TIME THE BOTOX INJECTIONS ARE AIDING IN RELIEF FROM THE MIGRAINES I WOULD LIKE THE PATIENT TO CONTINUE BOTOX INJECTIONS. PATIENT WILL RETURN TO THE CLINIC PRIOR TO THE BOTOX INJECTION. INSTRUCTIONS WERE GIVEN, QUESTIONS WERE ANSWERED, PATIENT REPORTS UNDERSTANDING AND AGREES WITH THE PLAN. I, LIZ FIGUEROA, DOCUMENTED THE ABOVE INFORMATION ACTING A SCRIBE FOR DR. VILLARREAL. I HAVE REVIEWED THE ABOVE DOCUMENT, WRITTEN BY LIZ HARRISON AND I VERIFY THAT IT IS ACCURATE. OTHERS REFILL IBUPROFEN TABLET, 800 MG, 1 TABLET, ORALLY WITH FOOD, THREE TIMES A DAY NEEDED FOR PAIN MDD3, 30 DAY(S), 90, REFILLS 2 REFILL OXYCODONE HCL TABLET, 5 MG, 1 TABLET NEEDED, ORALLY, EVERY 6 HOURS NEEDED FOR PAIN MDD3, 30 DAYS, 90, REFILLS 0 REFILL BUTRANS PATCH WEEKLY, 5 MCG/HR, 1 PATCH TO SKIN, TRANSDERMAL, 1 PATCH Q 7 DAYS MDD 1 PATCH Q 7 DAYS, 30 DAY(S), 4, REFILLS 0 REFILL CARISOPRODOL TABLET, 350 MG, 1 TABLET, ORALLY, Q 8 HRS NEEDED MDD=2, 30 DAY(S), 60, REFILLS 0 REFILL GABAPENTIN CAPSULE, 100 MG, DIRECTED, ORALLY, 1 CAP DAILY NEEDED FOR PAIN, 30 DAY(S), 30, REFILLS 2 PREVENTIVE MEDICINE PAIN CLINIC TEACHING: PROCEDURE TEACHING PRE-PROCEDURE INSTRUCTIONS REVIEWED WITH PT.. PROCEDURE CODES FA211 ESTABILISHED PATIENT [facility] FACILITY CHARGE G8427 DOC MEDS VERIFIED W/PT OR RE G8730 PAIN ASSESS POS TOOL F/U PLAN DOC DISPOSITION & COMMUNICATION FOLLOW UP 3 WEEKS ELECTRONICALLY SIGNED BY DOLORES VILLARREAL MD ON 10/07/2016 AT 09:45 PM EDT DISCLAIMER : THIS IS A VISIT SUMMARY EXTRACTED FROM THE [employer] CHART. IT IS NOT A COPY OF THE [employer] PROGRESS NOTE. MTDD
== END ==
LOC: M PAIN 15:20
PROVIDERS: ATTEND Anesthesiology
DX: G89.29 Other chronic pain (principal); G43.709 Chronic migraine without aura, not intractable, without status migrainosus; E03.9 Hypothyroidism, unspecified; F32.9 Major depressive disorder, single episode, unspecified; R75 Inconclusive laboratory evidence of human immunodeficiency virus [HIV]; F41.9 Anxiety disorder, unspecified; J30.9 Allergic rhinitis, unspecified; Z87.891 Personal history of nicotine dependence; Z79.1 Long term (current) use of non-steroidal anti-inflammatories (NSAID); Z79.899 Other long term (current) drug therapy; Z91.013 Allergy to seafood; Z88.8 Allergy status to other drugs, medicaments and biological substances

== ENCOUNTER 2016-10-04 10:40 | Emergency (ER) | payer MEDICARE, MEDICAID ==
[~2016-10-04] VITALS: Ht 167.6 cm; Wt 89.2 kg
[~2016-10-04 10:40] MED LIST changes: -AMBI10TA PO; -BUPRENORPHINE; -BUPRENORPHINE TD; -CEPH500T PO; -CLEO300C2 PO; -CYCL10TA PO; -DIFL200T PO; -GABA-279 PO; -KEFL500C17 PO; -LEVA750T7 PO; -LORA1TAB12 PO; -METR1TAB66; -PRED20TA PO; -SERT-138; -SING10TA32 PO; -SULFAMETHOXAZOLE-TMP; -ZOFR4TAB3 PO; -ZYRT10CA PO
[2016-10-04] MEDS ORDERED: SERT-138 (10:59)
[2016-10-04] MEDS ORDERED: GABA-279 PO (10:59)
[2016-10-04] MEDS ORDERED: BUPRENORPHINE (10:59)
--- NOTE | 2016-10-04 11:43 | REP ---
Clinical: Altered mental status . Comparison: 08/10/2016 . Technique: PA and lateral. Findings: The mediastinum and cardiac silhouette are normal. The lung canas are clear and without acute consolidation, effusion, or pneumothorax. The skeletal structures are intact and normal. Impression: 1. No acute cardiopulmonary process. Signed by Nam Fernandez MD 10/04/2016 11:36 A
[2016-10-04 11:44] LABS: BASO # 0.1 K/mm3 (0.0-0.2); BASO % 1.5 % (0.0-1.0); EOS % 0.7 % (0.0-3.0); LARGE UNSTAINED CELL # 0.1 K/mm3 (0.0-0.4); LARGE UNSTAINED CELL % 1.5 % (0.0-4.0); LYMPH # 1.7 K/mm3 (1.5-4.5); LYMPH % 28.4 % (24.0-44.0); MEAN CORPUSCULAR HEMOGLOBIN 34.5 pg (27.0-33.0); MEAN CORPUSCULAR HGB CONC 34.7 g/dl (32.0-36.5); MEAN CORPUSCULAR VOLUME 99.3 fl (80.0-96.0); MONO # 0.3 K/mm3 (0.0-0.8); MONO % 5.3 % (0.0-5.0); NEUTROPHILS # 3.6 K/mm3 (1.8-7.7); NEUTROPHILS % 62.6 % (36.0-66.0); PLATELET COUNT, AUTOMATED 228 k/mm3 (150-450); RED CELL DISTRIBUTION WIDTH 12.3 % (11.5-14.5); WHITE BLOOD COUNT 5.8 K/mm3 (4.0-10.0)
--- NOTE | 2016-10-04 11:44 | REP ---
Clinical: Altered mental status . Comparison: 03/19/2016 . Findings: The ventricles, sulci, and cisterns are normal in position and appearance. Ying-white differentiation is maintained. No acute intracranial hemorrhage, mass/mass effect, pathology or trauma/injury. No evidence for acute infarction. No extra-axial fluid collection. Calvarium is intact. Paranasal sinuses and mastoid air cells are clear. Impression: Normal noncontrast head CT. No evidence for acute intracranial pathology or trauma/injury. Signed by Nam Fernandez MD 10/04/2016 11:37 A
[2016-10-04 12:04] LABS: METHADONE URINE NEGATIVE (NEGATIVE)
[2016-10-04 12:10] LABS: ALBUMIN 3.8 GM/DL (3.2-5.2); ALBUMIN/GLOBULIN RATIO 1.15 (1.00-1.93); ALKALINE PHOSPHATASE 71 U/L (45-117); ALT/SGPT 19 U/L (12-78); ANION GAP 6 MEQ/L (8-16); AST/SGOT 15 U/L (15-37); BILIRUBIN,DIRECT < 0.1 MG/DL (0.0-0.2); BILIRUBIN,TOTAL 0.5 MG/DL (0.2-1.0); BLOOD UREA NITROGEN 10 MG/DL (7-18); CALCIUM LEVEL 8.2 MG/DL (8.5-10.1); CARBON DIOXIDE LEVEL 28 MEQ/L (21-32); CHLORIDE LEVEL 105 MEQ/L (98-107); CREATININE FOR GFR 0.68 MG/DL (0.55-1.02); GLOMERULAR FILTRATION RATE > 60.0 (>58); GLUCOSE, FASTING 82 MG/DL (70-105); POTASSIUM SERUM 4.1 MEQ/L (3.5-5.1); SODIUM LEVEL 139 MEQ/L (136-145); TOTAL PROTEIN 7.1 GM/DL (6.4-8.2)
[2016-10-04] MEDS ORDERED: MORPHINE 4 MG/ML 1ML SYRINGE IV ONE (12:30)
[2016-10-04] MEDS ORDERED: LORazepam 2 MG/ML VIAL (J2060) IV STA (13:44)
--- NOTE | 2016-10-04 15:17 | REP ---
Clinical: Left-sided weakness and paresthesia. Technique: Standard noncontrast MRI of the brain sequencing. Findings: Mucoperiosteal changes involving the right maxillary sinus suggest sinusitis. The ventricle sulci and cisterns are normal in position and appearance. Ying white differentiation is maintained. No acute intracranial hemorrhage, mass/mass effect, pathology or trauma noted. No extra-axial fluid collection. No infarction. Midline and midbrain structures are intact, symmetric and normal. Impression: Right maxillary sinusitis. Otherwise normal noncontrast MRI of the brain. Signed by Nam Fernandez MD 10/04/2016 03:08 P
--- NOTE | 2016-10-04 15:19 | REP ---
Clinical: Left-sided weakness and paresthesia. Technique: Axial noncontrast 3-D [id number] source images with multiplanar re-formations. Findings: [place] appears intact. Vascularity to the bilateral hemispheres is symmetric and normal. No arteriovenous malformation or aneurysm appreciated. Impression: Normal MRA of the brain. Signed by Nam Fernandez MD 10/04/2016 03:11 P
[2016-10-04 16:07] VITALS: BP 120/70
--- NOTE | 2016-10-04 18:12 | ECGEPIP ---
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
== END 2016-10-04 16:08 | disposition home or self-care (01) ==
LOC: M ED 10:40
DX: R07.9 Chest pain, unspecified (principal); F43.12 Post-traumatic stress disorder, chronic; F41.0 Panic disorder [episodic paroxysmal anxiety]; Z88.8 Allergy status to other drugs, medicaments and biological substances
CPT/HCPCS: 70450; 70544; 70551; 71020; 80048; 80076; 80307; 82550; 82553; 84443; 84484; 85025; 93005; 93041; 94760; 96374; 96375; 99284; G0480; J2060

== ENCOUNTER → 2016-10-15 | Outpatient (REF) | payer MEDICARE, MEDICAID ==
[~2016-10-15] MED LIST changes: +AMBI10TA PO; +BUPRENORPHINE; +BUPRENORPHINE TD; +CEPH500T PO; +CLEO300C2 PO; +CYCL10TA PO; +DIFL200T PO; +GABA-279 PO; +KEFL500C17 PO; +LEVA750T7 PO; +LORA1TAB12 PO; +METR1TAB66; +PRED20TA PO; +SERT-138; +SING10TA32 PO; +SULFAMETHOXAZOLE-TMP; +ZOFR4TAB3 PO; +ZYRT10CA PO
[2016-10-15 17:07] LABS: CALCIUM OXALATE CRYSTALS SMALL
== END ==
LOC: M LAB REF 16:25
PROVIDERS: ATTEND Nurse Practitioner Women's Health
DX: N39.0 Urinary tract infection, site not specified (principal)

== ENCOUNTER 2016-10-20 11:53 | Emergency (ER) | payer MEDICARE, MEDICAID ==
[~2016-10-20] VITALS: Ht 167.6 cm; Wt 89.8 kg
[~2016-10-20 11:53] MED LIST changes: -AMBI10TA PO; -BUPRENORPHINE TD; -CEPH500T PO; -CLEO300C2 PO; -CYCL10TA PO; -DIFL200T PO; -KEFL500C17 PO; -LEVA750T7 PO; -LORA1TAB12 PO; -METR1TAB66; -PRED20TA PO; -SING10TA32 PO; -SULFAMETHOXAZOLE-TMP; -ZOFR4TAB3 PO; -ZYRT10CA PO
[2016-10-20] MEDS ORDERED: SULFAMETHOXAZOLE-TMP (12:06)
[2016-10-20] MEDS ORDERED: LORA1TAB12 PO (12:06)
[2016-10-20] MEDS ORDERED: METR1TAB66 (12:06)
[2016-10-20] MEDS ORDERED: LORazepam 1 MG TAB PO ONE (12:45)
[2016-10-20] MEDS ORDERED: ONDANSETRON 4 MG ORAL DISINTEGRATING TAB (S0181) PO ONE (12:45)
[2016-10-20] MEDS ORDERED: LIDOCAINE W/EPINEPHRINE 1% 20ML VIAL SC ONE (12:45)
[2016-10-20] MEDS ORDERED: CLEO300C2 PO (13:51)
[2016-10-20] MEDS ORDERED: ZOFR4TAB3 PO (13:54)
[2016-10-20 13:57] VITALS: BP 126/60
== END 2016-10-20 14:05 | disposition home or self-care (01) ==
LOC: M ED 11:53
DX: L02.412 Cutaneous abscess of left axilla (principal); B20 Human immunodeficiency virus [HIV] disease

== ENCOUNTER 2016-10-22 08:50 | Emergency (ER) | payer MEDICARE, MEDICAID ==
[~2016-10-22] VITALS: Ht 167.6 cm; Wt 91.4 kg
[~2016-10-22 08:50] MED LIST changes: +CLEO300C2 PO; +LORA1TAB12 PO; +METR1TAB66; +SULFAMETHOXAZOLE-TMP; +ZOFR4TAB3 PO
[2016-10-22 08:52] VITALS: BP 108/57
[2016-10-22] MEDS ORDERED: BUPRENORPHINE TD (09:02)
[2016-10-22] MEDS ORDERED: PERCOCET 5MG/325MG TAB PO ONE (09:30)
== END 2016-10-22 09:49 | disposition home or self-care (01) ==
LOC: M ED 08:50
DX: L03.112 Cellulitis of left axilla (principal); Z88.8 Allergy status to other drugs, medicaments and biological substances; Z79.899 Other long term (current) drug therapy

== ENCOUNTER 2016-10-24 22:42 | Emergency (ER) | payer MEDICARE, MEDICAID ==
[~2016-10-24] VITALS: Ht 167.6 cm; Wt 91.3 kg
[~2016-10-24 22:42] MED LIST changes: +BUPRENORPHINE TD
[2016-10-25] MEDS ORDERED: KEFL500C17 PO (02:12)
[2016-10-25] MEDS: cefTRIAXone SOD 1 GM VIAL (J0696) IM ONE ×2 (02:13→02:22)
[2016-10-25] MEDS ORDERED: FLUCONAZOLE 50MG TABLET PO ONE (02:30)
[2016-10-25 02:36] VITALS: BP 121/67
[2016-10-26] MEDS ORDERED: DIFL200T PO (03:17)
== END 2016-10-25 02:37 | disposition home or self-care (01) ==
LOC: M ED 22:42
DX: L02.412 Cutaneous abscess of left axilla (principal); L03.112 Cellulitis of left axilla; I10 Essential (primary) hypertension; G89.29 Other chronic pain
CPT/HCPCS: 96372; 99282; J0696

== ENCOUNTER 2016-10-26 03:03 | Emergency (ER) | payer MEDICARE, MEDICAID ==
[~2016-10-26] VITALS: Ht 167.6 cm; Wt 90.0 kg
[~2016-10-26 03:03] MED LIST changes: +KEFL500C17 PO
[2016-10-26] MEDS ORDERED: DIFL200T PO (03:17)
[2016-10-26] MEDS ORDERED: LORazepam 2 MG/ML VIAL (J2060) IV STA ×2 (04:01→04:54)
[2016-10-26] MEDS ORDERED: diphenhydrAMINE INJ 50MG/ML VIAL (J1200) IV ONE (04:15)
[2016-10-26] MEDS ORDERED: NS 1,000 ML IV ONE (04:15)
[2016-10-26] MEDS ORDERED: METOCLOPRAMIDE INJ 10MG/2ML VIAL (J2765) IV ONE (04:15)
[2016-10-26] MEDS ORDERED: KETOROLAC 30 MG/ML VIAL (J1885) IV ONE (04:15)
[2016-10-26 05:16] VITALS: BP 105/64
== END 2016-10-26 05:21 | disposition home or self-care (01) ==
LOC: M ED 03:03
DX: L02.412 Cutaneous abscess of left axilla (principal); G43.909 Migraine, unspecified, not intractable, without status migrainosus; F41.1 Generalized anxiety disorder; Z88.8 Allergy status to other drugs, medicaments and biological substances; Z79.899 Other long term (current) drug therapy
CPT/HCPCS: 99283; J1200; J1885; J2060; J2765

== ENCOUNTER → 2016-11-06 | Outpatient (CLI) | payer MEDICARE, MEDICAID ==
[~2016-11-06] MED LIST changes: +AMBI10TA PO; +BUPIVACAINE HCL 0.25% 10 ML VIAL As Ordered ONE; +BUPIVACAINE HCL 0.25% 30 ML VIAL As Ordered ONE; +CEPH500T PO; +CYCL10TA PO; +DIFL200T PO; +LEVA750T7 PO; +PRED20TA PO; +SING10TA32 PO; +TRIAMCINOLONE ACETONIDE SUSP 40 MG/ML VIAL (J3301) As Ordered ONE; +ZYRT10CA PO; +diazePAM 5 MG TAB As Ordered ONE; +oxyCODONE 5MG TAB As Ordered ONE
--- NOTE | 2016-11-16 23:38 | ECWPNPC ---
PATIENT NAME: DEANDRA BREWER : 1975 GENDER: FEMALE VISIT DATE: 11/06/2016 DISCHARGE DATE: 11/06/16 1007 VISIT LOCKED DATE TIME: PHYSICIAN: DOLORES VILLARREAL RESOURCE: DOLORES VILLARREAL REASON FOR APPOINTMENT 1. TPI BILATERAL LOWER BACK AREA HISTORY OF PRESENT ILLNESS HISTORY OF PRESENT ILLNESS: PAIN THE PATIENT DESCRIBES THE PAIN... FALL RISK SCREENING: SCREENING :NO FALLS IN THE PAST YEAR CURRENT MEDICATIONS TAKING CYTOMEL 10 MG TABLET 2 TABLET ON AN EMPTY STOMACH ORALLY ONCE A DAY, NOTES: 11/06 529 TAKING SYNTHROID 150 MCG TABLET 1 TABLET ORALLY ONCE A DAY, NOTES: 11/06 529 TAKING ADDERALL XR 30 MG CAPSULE EXTENDED RELEASE 24 HOUR 1 CAPSULE ORALLY DAILY, NOTES: 11/05 599 TAKING ZOLOFT 100 MG TABLET 1 TAB ORALLY ONCE A DAY, NOTES: 11/06 529 TAKING ATIVAN 1 MG TABLET 1 TABLET ORALLY TWICE DAILY, NOTES: 11/05 1829 TAKING MIRENA 20 MCG/24HR INTRAUTERINE DEVICE INTRAUTERINE , NOTES: INSERTED YRS AGO TAKING KETOROLAC TROMETHAMINE 10 MG TABLET 1 TABLET NEEDED ORALLY EVERY 6 HRS PRN FOR PAIN, NOTES: NONE RECENT TAKING ATENOLOL 50 MG TABLET 1 TABLET ORALLY ONCE A DAY, NOTES: 11/06 529 TAKING PATADAY 0.2 % SOLUTION DIRECTED OPHTHALMIC ONCE DAILY NEEDED, NOTES: LAST WEEK TAKING SINGULAIR 10 MG TABLET 1 TABLET IN THE EVENING ORALLY ONCE A DAY NEEDED, NOTES: 11/06 529 TAKING [id number] 50-300-40 MG CAPSULE 1 CAPSULE NEEDED ORALLY EVERY 6 HRS PRN, NOTES: 11/06 299 TAKING QNASL 80 MCG/ACT AEROSOL SOLUTION 2 PUFFS IN EACH NOSTRIL NASALLY ONCE A DAY NEEDED, NOTES: LAST WEEK TAKING BENADRYL 25 MG TABLET 1 TABLET NEEDED ORALLY BEFORE BEDTIME, NOTES: NONE RECENT TAKING FLUCONAZOLE 150 MG TABLET TAKE ONE TABLET BY MOUTH WEEKLY NEEDED, NOTES: 1 1/2 WEEKS AGO TAKING VITAMIN D (ERGOCALCIFEROL) 94415 UNIT CAPSULE 1 CAPSULE ORALLY WEEKLY, NOTES: LAST WEEK TAKING CLOBETASOL PROPIONATE 0.05 % SOLUTION 1 APPLICATION TO AFFECTED AREA EXTERNALLY BID PRN, NOTES: 2 WEEKS AGO TAKING DULCOLAX 5 MG TABLET DELAYED RELEASE 1 TABLET NEEDED ORALLY ONCE A DAY PRN, NOTES: NONE RECENT TAKING SUDAFED 30 MG TABLET 1 TABLET NEEDED ORALLY EVERY 6 HRS PRN, NOTES: 2 WEEKS AGO TAKING SALINE NASAL SPRAY 0.65 % SOLUTION 2 DROPS IN EACH NOSTRIL NEEDED NASALLY EVERY 2 HRS, NOTES: NONE RECENT TAKING GENVOYA [phone] MG TABLET DIRECTED ORALLY ONCE DAILY, NOTES: 11/06 1999 TAKING CETIRIZINE HCL 10 MG TABLET 1 TABLET ORALLY ONCE A DAY, NOTES: 11/06 529 TAKING ZOFRAN 8 MG TABLET 1 TABLET ORALLY ONCE A DAY NEEDED, NOTES: 11/04 TAKING SENOKOT S 8.6-50 MG TABLET 2 TABLET IN THE EVENING NEEDED ORALLY BEFORE BEDTIME, NOTES: NONE RECENT TAKING DERMASMOOTHE/FS 0.01% OIL DIRECTED TOPICALLY 2-3X/WEEK X 4 WEEKS, NOTES: NONE RECENT TAKING IBUPROFEN 800 MG TABLET 1 TABLET ORALLY WITH FOOD THREE TIMES A DAY NEEDED FOR PAIN MDD3, NOTES: 11/06 529 TAKING BUTRANS 5 MCG/HR PATCH WEEKLY 1 PATCH TO SKIN TRANSDERMAL 1 PATCH Q 7 DAYS MDD 1 PATCH Q 7 DAYS, NOTES: APPLIED 1 WEEK AGO TAKING GABAPENTIN 100 MG CAPSULE DIRECTED ORALLY 1 CAP DAILY NEEDED FOR PAIN, NOTES: NONE RECENT TAKING CARISOPRODOL 350 MG TABLET 1 TABLET ORALLY Q 8 HRS NEEDED MDD=2, NOTES: 11/05 1899 TAKING OXYCODONE HCL 5 MG TABLET 1 TABLET NEEDED ORALLY EVERY 6 HOURS NEEDED FOR PAIN MDD3, NOTES: 11/05 299 TAKING AMMONIUM LACTATE 12 % CREAM 1 APPLICATION TO AFFECTED AREA EXTERNALLY TWICE A DAY NEEDED TO DRY SKIN, NOTES: NONE RECENT NOT-TAKING LEVOFLOXACIN 750 MG TABLET 1 TABLET ORALLY ONCE A DAY NOT-TAKING ONDANSETRON 8 MG TABLET DISPERSIBLE 1 TABLET ON THE TONGUE AND ALLOW TO DISSOLVE ORALLY EVERY 8 HRS NEEDED, NOTES: 08/12 9AM NOT-TAKING ZYRTEC 1 TAB ORAL NEEDED, NOTES: NONE LATELY NOT-TAKING CALCIUM 600 MG TABLET 1 TABLET WITH MEALS ORALLY TWICE A DAY DISCONTINUED ATENOLOL 50 TABLET TAKE 1 TABLET BY MOUTH EVERY DAY MEDICATION LIST REVIEWED AND RECONCILED WITH THE PATIENT PAST MEDICAL HISTORY HIV POSITIVE 1997, TREATED WITH COMBIVIR DURING HER PREGNANCIES, ATRIPLA GAVE HER ABDOMINAL PAIN 09/[address] ROWAN FROM [facility] PAXIL DISCONTINUED/ADERALL FOR ADD/ KATHRYN ANXIETY 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 LEFT ACL RUPTURE MIGRAINE BACTERIAL VAGINOSIS UTI TEETH EXTRACTION IUD TERRELLNA 04/2013 AT [facility] HERPES SIMPLEX TYPE II IGG POSITIVE SEROLOGY 06/2011 HERPES ORALIS ALLERGIES SEAFOOD: HIVES: ALLERGY ABACAVIR SULFATE: HEADACHE,MIGRAINE,NAUSEA: ALLERGY METAXALONE: WEIGHT GAIN, FATIGUE: SIDE EFFECTS SUMATRIPTAN: PANIC ATTACK, REBOUND HEADACHE: SIDE EFFECTS LYRICA: SWELLING IN LEG: SIDE EFFECTS REVIEW OF SYSTEMS REVIEWED BY: PROVIDER: . CONSTITUTIONAL: ANY CHANGE IN YOUR MEDICAL CONDITION? NO . CHILLS NO . FEVER NO . INFECTION: DO YOU HAVE NEW INFECTIONS? NO . DO YOU HAVE HISTORY OF MRSA? NO . MUSCULOSKELETAL: ANY NEW PATTERNS OF PAIN OR NUMBNESS? NO . GASTROENTEROLOGY: ANY NEW CHANGE IN BOWEL CONTROL? NO . GENITOURINARY: ANY NEW CHANGE IN BLADDER CONTROL? NO . IS THERE A CHANCE YOU COULD BE ? NO . HEMATOLOGY/LYMPH: DO YOU TAKE ANY BLOOD THINNERS? (FOR EXAMPLE- COUMADIN, PLAVIX, AGGRENOX, PLATEL, PRADAXA, OR XARELTO) NO . WHEN WAS YOUR LAST DOSE? DATE: TIME: . NEUROLOGY: HAVE YOU FALLEN IN THE PAST 6 MONTHS? NO . ANY NEW EXTREMITY NUMBNESS OR WEAKNESS? NO . CARDIOLOGY: DO YOU HAVE A PACEMAKER OR DEFIBRILLATOR? NO . RESPIRATORY: HAVE YOU BEEN SICK IN THE PAST WEEK? NO . FEVER NO . FLU LIKE SYMPTOMS? NO . COUGH NO . INTEGUMENTARY: DO YOU HAVE ANY RASHES OR OPEN SORES? NO . ALLERGIC/IMMUNO: ARE YOU ALLERGIC TO SHELLFISH OR IV DYE? NO . ANY NEW ALLERGIES? NO . PSYCHIATRIC: DO YOU HAVE THOUGHTS OF HURTING YOURSELF OR SOMEONE ELSE? NO . ARE YOU ABUSED, NEGLECTED, OR IN AN UNSAFE ENVIRONMENT? NO . ENDOCRINOLOGY: ARE YOU DIABETIC? NO . OTHER: DO YOU NEED ANY PRESCRIPTIONS? YES . IF YES, PLEASE LIST: CARISOPRODAL,BUTRANS PATCH . ANY NEW PROBLEMS WITH YOUR MEDICATIONS? NO . WHEN DID YOU LAST EAT? 11/05/16 . WHEN DID YOU LAST DRINK? 11/06 0530 . WHAT DID YOU LAST DRINK? SIP OF WATER WITH MEDS . NAME OF PERSON DRIVING YOU HOME? TAXI . DO YOU HAVE ANY OTHER QUESTIONS OR CONCERNS WOULD LIKE TO DISCUSS NECK, SHOULDER AND BACK PAIN . VITAL SIGNS WT 203.8 LBS, HT 66 IN, BMI 32.89 INDEX, BP 118/65 MM HG, HR 68 /MIN, RR 18 /MIN, TEMP 97.5 F, OXYGEN SAT % 98%, NA INITIALS SC 08:47, REVIEWED BY: KRISTI. ASSESSMENTS MYALGIA - M79.1 (PRIMARY) TREATMENT OTHERS REFILL BUTRANS PATCH WEEKLY, 5 MCG/HR, 1 PATCH TO SKIN, TRANSDERMAL, 1 PATCH Q 7 DAYS MDD 1 PATCH Q 7 DAYS, 30 DAY(S), 4, REFILLS 0, NOTES: APPLIED 1 WEEK AGO PROCEDURES PN TRIGGER POINT INJECTION WITH STEROIDS PRE PROCEDURE DIAGNOSIS 1. MYALGIA 2. PAIN AT BILATERAL LOWER BACK AREA POST PROCEDURE DIAGNOSIS 1. MYALGIA 2. PAIN AT BILATERAL LOWER BACK AREA PROCEDURE TRIGGER POINT INJECTION AT BILATERAL LOWER BACK AREA SURGEON DR. DOLORES VILLARREAL ANIMAL NUTRITION CONSULTANT NONE ANESTHESIA LOCAL PRE PROCEDURE NOTE THE PATIENT HAS A HISTORY OF CHRONIC PAIN AT THE RIGHT AND LEFT LOWER BACK AREA. I EVALUATE THE PATIENT AND REVIEWED THE CHART. THERE IS EVIDENCE OF BANDS OF TISSUE WITH RESTRICTION OF MOVEMENT AND PRESENCE OF TRIGGER POINT AT THE AFFECTED AREA. I WENT OVER THE RISKS, ALTERNATIVES, AND BENEFITS ASSOCIATED WITH THIS PROCEDURE. THE PATIENT WOULD LIKE TO PROCEED AND GIVE CONSENT TO PERFORMED THE PROCEDURE. THE PATIENT DENIES UNEXPLAINABLE WEIGHT LOSS, FEVER, CHILLS, OR NEW CHANGES IN URINARY OR BOWEL CONTROL DESCRIPTION OF PROCEDURE THE PATIENT WAS BROUGHT TO THE PROCEDURE ROOM AND PLACED IN THE SITTING POSITION. THE AREA WAS CLEANED WITH ALCOHOL. THE PROCEDURE WAS DONE USING ASEPTIC STERILE TECHNIQUE. I CHECKED LATERALITY AND THE LEVEL WHERE THE PROCEDURE WAS GOING TO BE PERFORMED WITH THE PATIENT AND THE SUPPORTING STAFF AT THE MOMENT OF THE TIME OUT IN THE PROCEDURE ROOM. USING A 25-GAUGE NEEDLE, TRIGGER POINTS WERE INJECTED AT THE RIGHT AND LEFT LOWER BACK AREA WITH A TOTAL OF 40 ML OF BUPIVACAINE 0.25% AND KENALOG 40 MG. THERE WAS NO EVIDENCE OF BLOOD, PARESTHESIA OR CEREBROSPINAL FLUID DURING THE PROCEDURE. THE PATIENT WAS SENT TO THE RECOVERY ROOM. THE PATIENT WAS MOVING THE EXTREMITIES AND DOING WELL. THERE WAS NO COMPLICATION DURING THE PROCEDURE POST PROCEDURE NOTE THE PATIENT WILL BE SEEN IN A FOLLOW UP IN THE NEXT FEW WEEKS. INSTRUCTIONS WERE GIVEN, QUESTIONS WERE ANSWERED, AND THE PATIENT EXPRESSED UNDERSTANDING AND AGREES WITH THE PLAN. I, LIZ FIGUEROA, DOCUMENTED THE ABOVE INFORMATION ACTING A SCRIBE FOR DR. VILLARREAL. I, DR. VILLARREAL, HAVE REVIEWED THE ABOVE DOCUMENT, SCRIBED BY LIZ FIGUEROA, AND I VERIFY THAT IT IS ACCURATE PROCEDURE CODES 91807 INJ TRIGGER POINT / MUSCL DISPOSITION & COMMUNICATION FOLLOW UP 3 WEEKS ELECTRONICALLY SIGNED BY DOLORES VILLARREAL MD ON 11/16/2016 AT 07:55 AM EDT DISCLAIMER : THIS IS A VISIT SUMMARY EXTRACTED FROM THE [employer] CHART. IT IS NOT A COPY OF THE [employer] PROGRESS NOTE. MTDD
== END ==
LOC: M PAIN 08:30
PROVIDERS: ATTEND Anesthesiology
DX: G89.29 Other chronic pain (principal); M54.5 Low back pain; M79.1 Myalgia; B20 Human immunodeficiency virus [HIV] disease; E03.9 Hypothyroidism, unspecified; F33.1 Major depressive disorder, recurrent, moderate; F41.9 Anxiety disorder, unspecified; G43.709 Chronic migraine without aura, not intractable, without status migrainosus; Z91.013 Allergy to seafood; Z88.2 Allergy status to sulfonamides; Z88.8 Allergy status to other drugs, medicaments and biological substances; Z79.891 Long term (current) use of opiate analgesic; Z79.899 Other long term (current) drug therapy
CPT/HCPCS: 20552; J3301

== ENCOUNTER → 2016-11-18 | Outpatient (CLI) | payer MEDICARE, MEDICAID ==
[~2016-11-18] MED LIST changes: +BOTULINUM INJ 100 UNITS (J0585) IM ONE; -BUPIVACAINE HCL 0.25% 10 ML VIAL As Ordered ONE; -BUPIVACAINE HCL 0.25% 30 ML VIAL As Ordered ONE; -TRIAMCINOLONE ACETONIDE SUSP 40 MG/ML VIAL (J3301) As Ordered ONE
--- NOTE | 2016-11-24 00:52 | ECWPNPC ---
PATIENT NAME: DEANDRA BREWER : 1975 GENDER: FEMALE VISIT DATE: 11/18/2016 DISCHARGE DATE: 11/18/16 1114 VISIT LOCKED DATE TIME: PHYSICIAN: DOLORES VILLARREAL RESOURCE: DOLORES VILLARREAL REASON FOR APPOINTMENT 1. BOTOX INJECTION HISTORY OF PRESENT ILLNESS HISTORY OF PRESENT ILLNESS: PAIN THE PATIENT DESCRIBES THE PAIN... FALL RISK SCREENING: SCREENING :NO FALLS IN THE PAST YEAR CURRENT MEDICATIONS TAKING CYTOMEL 10 MG TABLET 2 TABLET ON AN EMPTY STOMACH ORALLY ONCE A DAY, NOTES: 0611/18/16 TAKING SYNTHROID 150 MCG TABLET 1 TABLET ORALLY ONCE A DAY, NOTES: 59911/18/16 TAKING ADDERALL XR 30 MG CAPSULE EXTENDED RELEASE 24 HOUR 1 CAPSULE ORALLY DAILY, NOTES: YESTERDAY AM TAKING ZOLOFT 100 MG TABLET 1 TAB ORALLY ONCE A DAY, NOTES: 0611/18/16 TAKING ATIVAN 1 MG TABLET 1 TABLET ORALLY TWICE DAILY, NOTES: 1800 11/17/16 TAKING MIRENA 20 MCG/24HR INTRAUTERINE DEVICE INTRAUTERINE , NOTES: INSERTED YRS AGO TAKING KETOROLAC TROMETHAMINE 10 MG TABLET 1 TABLET NEEDED ORALLY EVERY 6 HRS PRN FOR PAIN, NOTES: NONE RECENT TAKING ATENOLOL 50 MG TABLET 1 TABLET ORALLY ONCE A DAY, NOTES: 0611/18 TAKING PATADAY 0.2 % SOLUTION DIRECTED OPHTHALMIC ONCE DAILY NEEDED, NOTES: LAST WEEK TAKING SINGULAIR 10 MG TABLET 1 TABLET IN THE EVENING ORALLY ONCE A DAY NEEDED, NOTES: YESTERDAY AM 11/17/16 TAKING [id number] 50-300-40 MG CAPSULE 1 CAPSULE NEEDED ORALLY EVERY 6 HRS PRN, NOTES: 0611/18 TAKING QNASL 80 MCG/ACT AEROSOL SOLUTION 2 PUFFS IN EACH NOSTRIL NASALLY ONCE A DAY NEEDED, NOTES: LAST WEEK TAKING BENADRYL 25 MG TABLET 1 TABLET NEEDED ORALLY BEFORE BEDTIME, NOTES: NONE RECENT TAKING FLUCONAZOLE 150 MG TABLET TAKE ONE TABLET BY MOUTH WEEKLY NEEDED, NOTES: 2 WEEKS AGO TAKING VITAMIN D (ERGOCALCIFEROL) 24702 UNIT CAPSULE 1 CAPSULE ORALLY WEEKLY, NOTES: 2 WEEKS TAKING CLOBETASOL PROPIONATE 0.05 % SOLUTION 1 APPLICATION TO AFFECTED AREA EXTERNALLY BID PRN, NOTES: 2 WEEKS AGO TAKING DULCOLAX 5 MG TABLET DELAYED RELEASE 1 TABLET NEEDED ORALLY ONCE A DAY PRN, NOTES: NONE RECENT TAKING SUDAFED 30 MG TABLET 1 TABLET NEEDED ORALLY EVERY 6 HRS PRN, NOTES: LONG TIME AGO TAKING SALINE NASAL SPRAY 0.65 % SOLUTION 2 DROPS IN EACH NOSTRIL NEEDED NASALLY EVERY 2 HRS, NOTES: NONE RECENT TAKING GENVOYA [phone] MG TABLET DIRECTED ORALLY ONCE DAILY, NOTES: 1800 11/17/16 TAKING CETIRIZINE HCL 10 MG TABLET 1 TABLET ORALLY ONCE A DAY, NOTES: 0600 11/18/16 TAKING ZOFRAN 8 MG TABLET 1 TABLET ORALLY ONCE A DAY NEEDED, NOTES: LAST NIGHT 11/17 16 TAKING SENOKOT S 8.6-50 MG TABLET 2 TABLET IN THE EVENING NEEDED ORALLY BEFORE BEDTIME, NOTES: NONE RECENT TAKING DERMASMOOTHE/FS 0.01% OIL DIRECTED TOPICALLY 2-3X/WEEK X 4 WEEKS, NOTES: NONE RECENT TAKING IBUPROFEN 800 MG TABLET 1 TABLET ORALLY WITH FOOD THREE TIMES A DAY NEEDED FOR PAIN MDD3, NOTES: 0611/18 TAKING GABAPENTIN 100 MG CAPSULE DIRECTED ORALLY 1 CAP DAILY NEEDED FOR PAIN, NOTES: NOT LATELY TAKING OXYCODONE HCL 5 MG TABLET 1 TABLET NEEDED ORALLY EVERY 6 HOURS NEEDED FOR PAIN MDD3, NOTES: YESTERDAY 1800 TAKING AMMONIUM LACTATE 12 % CREAM 1 APPLICATION TO AFFECTED AREA EXTERNALLY TWICE A DAY NEEDED TO DRY SKIN, NOTES: NONE RECENT TAKING CARISOPRODOL 350 MG TABLET 1 TABLET ORALLY Q 8 HRS NEEDED MDD=2, NOTES: 1800 11/17/16 TAKING BUTRANS 5 MCG/HR PATCH WEEKLY 1 PATCH TO SKIN TRANSDERMAL 1 PATCH Q 7 DAYS MDD 1 PATCH Q 7 DAYS, NOTES: APPLIED THURSDAY NOT-TAKING LEVOFLOXACIN 750 MG TABLET 1 TABLET ORALLY ONCE A DAY NOT-TAKING ONDANSETRON 8 MG TABLET DISPERSIBLE 1 TABLET ON THE TONGUE AND ALLOW TO DISSOLVE ORALLY EVERY 8 HRS NEEDED, NOTES: 08/12 9AM NOT-TAKING ZYRTEC 1 TAB ORAL NEEDED, NOTES: NONE LATELY NOT-TAKING CALCIUM 600 MG TABLET 1 TABLET WITH MEALS ORALLY TWICE A DAY MEDICATION LIST REVIEWED AND RECONCILED WITH THE PATIENT PAST MEDICAL HISTORY HIV POSITIVE 1997, TREATED WITH COMBIVIR DURING HER PREGNANCIES, ATRIPLA GAVE HER ABDOMINAL PAIN 09/[address] ROWAN FROM [facility] PAXIL DISCONTINUED/ADERALL FOR ADD/ KATHRYN ANXIETY 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 LEFT ACL RUPTURE MIGRAINE BACTERIAL VAGINOSIS UTI TEETH EXTRACTION IUD BREANA 04/2013 AT [facility] HERPES SIMPLEX TYPE II IGG POSITIVE SEROLOGY 06/2011 HERPES ORALIS ALLERGIES SEAFOOD: HIVES: ALLERGY ABACAVIR SULFATE: HEADACHE,MIGRAINE,NAUSEA: ALLERGY METAXALONE: WEIGHT GAIN, FATIGUE: SIDE EFFECTS SUMATRIPTAN: PANIC ATTACK, REBOUND HEADACHE: SIDE EFFECTS LYRICA: SWELLING IN LEG: SIDE EFFECTS REVIEW OF SYSTEMS REVIEWED BY: PROVIDER: . CONSTITUTIONAL: ANY CHANGE IN YOUR MEDICAL CONDITION? NO . CHILLS NO . FEVER NO . INFECTION: DO YOU HAVE NEW INFECTIONS? NO . DO YOU HAVE HISTORY OF MRSA? NO . MUSCULOSKELETAL: ANY NEW PATTERNS OF PAIN OR NUMBNESS? NO . GASTROENTEROLOGY: ANY NEW CHANGE IN BOWEL CONTROL? NO . GENITOURINARY: ANY NEW CHANGE IN BLADDER CONTROL? NO . IS THERE A CHANCE YOU COULD BE ? NO . HEMATOLOGY/LYMPH: DO YOU TAKE ANY BLOOD THINNERS? (FOR EXAMPLE- COUMADIN, PLAVIX, AGGRENOX, PLATEL, PRADAXA, OR XARELTO) NO . WHEN WAS YOUR LAST DOSE? DATE: TIME: . NEUROLOGY: HAVE YOU FALLEN IN THE PAST 6 MONTHS? NO . ANY NEW EXTREMITY NUMBNESS OR WEAKNESS? NO . CARDIOLOGY: DO YOU HAVE A PACEMAKER OR DEFIBRILLATOR? NO . RESPIRATORY: HAVE YOU BEEN SICK IN THE PAST WEEK? NO . FEVER NO . FLU LIKE SYMPTOMS? NO . COUGH NO . INTEGUMENTARY: DO YOU HAVE ANY RASHES OR OPEN SORES? NO . ALLERGIC/IMMUNO: ARE YOU ALLERGIC TO SHELLFISH OR IV DYE? NO . ANY NEW ALLERGIES? NO . PSYCHIATRIC: DO YOU HAVE THOUGHTS OF HURTING YOURSELF OR SOMEONE ELSE? NO . ARE YOU ABUSED, NEGLECTED, OR IN AN UNSAFE ENVIRONMENT? NO . ENDOCRINOLOGY: ARE YOU DIABETIC? NO . OTHER: DO YOU NEED ANY PRESCRIPTIONS? NO . IF YES, PLEASE LIST: ____ . ANY NEW PROBLEMS WITH YOUR MEDICATIONS? NO . WHEN DID YOU LAST EAT? 6PM . WHEN DID YOU LAST DRINK? 6AM . WHAT DID YOU LAST DRINK? SIPS OF WATER WITH MEDS . NAME OF PERSON DRIVING YOU HOME? TAXI . DO YOU HAVE ANY OTHER QUESTIONS OR CONCERNS NO . VITAL SIGNS WT 194 LBS, HT 66 IN, BMI 31.31 INDEX, BP 102/51 MM HG, HR 65 /MIN, RR 18 /MIN, TEMP 96.8 F, OXYGEN SAT % 97%, NA INITIALS SC 09:15, REVIEWED BY: NL. ASSESSMENTS CHRONIC MIGRAINE WITHOUT AURA, NOT INTRACTABLE, WITHOUT STATUS MIGRAINOSUS - G43.709 (PRIMARY) PROCEDURES PN BOTOX INJECTIONS SUBSEQUENT INJECTIONS PRE PROCEDURE DIAGNOSIS CHRONIC MIGRAINE HEADACHES POST PROCEDURE DIAGNOSIS CHRONIC MIGRAINE HEADACHES PROCEDURE BOTOX INJECTION AT THE HEAD, NECK AND SHOULDERS SURGEON DR. DOLORES VILLARREAL RADIO COMMUNICATIONS MECHANICIAN NONE ANESTHESIA NONE PRE PROCEDURE NOTE THE PATIENT HAS HISTORY OF CHRONIC MIGRAINE HEADACHES. I EVALUATE THE PATIENT AND REVIEWED THE CHART. I WENT OVER THE RISKS, ALTERNATIVES, AND BENEFITS ASSOCIATED WITH THIS PROCEDURE. THE PATIENT WOULD LIKE TO PROCEED AND GIVE CONSENT TO PERFORMED THE PROCEDURE. THE PATIENT DENIES UNEXPLAINABLE WEIGHT LOSS, FEVER, CHILLS, OR NEW CHANGES IN URINARY OR BOWEL CONTROL. THE PATIENT DID A BOTOX INJECTION AT THE HEAD, NECK AND SHOULDERS 3 MONTHS AGO AND EXPRESSED MORE THAN 50% REDUCTION ON THE FREQUENCY AND INTENSITY OF THE HEADACHES. THE PATIENT EXPRESS THAT THE USE OF BOTOX HAS REDUCE SIGNIFICANTLY THE SEVERITY OF THE HEADACHES AND EXPRESSED THAT WANT TO RECEIVE THIS PROCEDURE AGAIN TODAY DESCRIPTION OF PROCEDURE THE PATIENTS WAS BROUGHT TO THE PROCEDURE ROOM AND PLACED IN THE SUPINE POSITION. I CHECKED LATERALITY AND THE AREAS WHERE THE PROCEDURE WAS GOING TO BE PERFORMED WITH THE PATIENT AND THE SUPPORTING STAFF AT THE MOMENT OF THE TIME OUT IN THE PROCEDURE ROOM. FOR THE PROCEDURE I USED A SOLUTION OF 5 UNITS OF BOTOX PER EACH 0.1 ML OF THE SOLUTION. I USED A 30-GAUGE NEEDLE TO INJECT THE SOLUTION AT THE SELECTED LOCATIONS. I INJECTED FIRST THE RIGHT AND LEFT REFRIGERATING ENGINEER HEAD MUSCLES. THE LANDMARK FOR BOTH INJECTIONS WAS APPROXIMATELY 1 CM ABOVE THE SUPERIOR MEDIAL EDGE OF THE EYEBROW. AFTER THESE TWO INJECTIONS, I INJECTED THE PROCERUS MUSCLE AT THE MIDLINE POINT BETWEEN THESE FIRST TWO INJECTIONS. THEN I PROCEEDED TO INJECT THE RIGHT AND LEFT FRONTALIS MUSCLE. TWO INJECTIONS WERE DONE IN EACH SIDE. THE FIRST INJECTION WAS DONE APPROXIMATELY 2 CM ABOVE THE FIRST INJECTION OF THE REFRIGERATING ENGINEER HEAD. THE SECOND INJECTION WAS DONE APPROXIMATELY 1.5 CM LATERAL TO THIS FIST INJECTION OF THE FRONTALIS OF EACH SIDE. AFTER THE INJECTIONS OVER THE FOREHEAD WERE DONE, THE PATIENT'S HEAD WAS TURNED TO THE LEFT SIDE AND WE STARTED TO WORK WITH THE RIGHT TEMPORALIS MUSCLE. FIRST INJECTION WAS DONE IN A VERTICAL LINE OF THE TRAGUS APPROXIMATELY 3 CM ABOVE THE TRAGUS. THE SECOND INJECTION WAS DONE APPROXIMATELY 2 CM ABOVE THE FIRST INJECTION. THE THIRD INJECTION WAS DONE APPROXIMATELY 1 CM FRONT ROBERTSON FROM THIS VERTICAL LINE CREATED AT THE LEVEL OF THE TRAGUS, SENIOR CARE BETWEEN THESE TWO INJECTIONS. THE FOURTH INJECTION WAS DONE APPROXIMATELY 1.5 CM BACK FROM THE SECOND INJECTION TO THE TEMPORALIS IN LINE TO THE MIDPORTION OF THE EAR. THEN, WE PROCEEDED TO INJECT THE LEFT TEMPORALIS MUSCLE. WE CLEANED THE AREA WITH ALCOHOL AND PROCEEDED TO PERFORM THE SAME FOR INJECTIONS DESCRIBED ABOVE BUT IN THE LEFT TEMPORALIS MUSCLE USING THE SAME LANDMARKS. AFTER THESE INJECTIONS WERE DONE, THE PATIENT WAS SEATED. FIRST, WE STARTED TO INJECT THE LEFT AND RIGHT OCCIPITALIS MUSCLE. I INJECTED AT THE FOLLOWING PLACES IN THE RIGHT AND LEFT MUSCLE. THE FIRST INJECTION WAS DONE AT THE MIDPOINT POSITION BETWEEN THE MASTOID PROCESS AND THE INION OF THE OCCIPITAL PROTUBERANCE. THE SECOND INJECTION WAS DONE APPROXIMATELY 1.5 CM SUPERIOR AND LATERAL OF THIS POINT. THE THIRD INJECTION WAS DONE APPROXIMATELY 1.5 CM SUPERIOR AND MEDIAL TO THIS FIRST INJECTION. THEN, I PROCEEDED TO INJECT THE RIGHT AND LEFT PARASPINAL MUSCLES. LANDMARK OF THE INJECTION WERE APPROXIMATELY: FIRST INJECTION 3 CM BELOW THE INION AND 1 CM LATERAL TO THE MIDLINE AND SECOND INJECTION AT EACH SIDE WAS DONE APPROXIMATELY 1.5 CM SUPERIOR AND LATERAL OF THE FIRST INJECTION. THE LAST GROUP OF INJECTIONS WAS DONE OVER THE RIGHT AND LEFT TRAPEZIUS MUSCLE OVER THE SHOULDERS AREA. THE FIRST INJECTION WAS DONE AT THE MIDPOINT BETWEEN THE INFLECTION POINT BETWEEN THE NECK AND SHOULDER AND THE ACROMION. THE SECOND AND THIRD INJECTIONS WERE DONE APPROXIMATELY 2.5 CM LATERAL AND MEDIAL FROM THIS FIRST INJECTION. SAME TARGETS WERE USED IN THE RIGHT AND LEFT SIDE. IN TOTAL, I INJECTED 155 UNITS OF BOTOX. PROCEDURE WAS DONE WITHOUT EVIDENCE OF PARESTHESIA, PNEUMOTHORAX, OR ANY COMPLICATIONS. THE PATIENT TOLERATED THE PROCEDURE VERY WELL. THE PATIENT WAS SENT TO THE RECOVERY ROOM FOR OBSERVATIONS. INJECTIONS WERE DONE AFTER CLEANING WITH ALCOHOL, USING ASEPTIC TECHNIQUES POST PROCEDURE NOTE THE PROCEDURE DONE WAS DISCUSSED WITH THE PATIENT. THE PATIENT WILL BE SEEN IN A FOLLOW UP IN THE NEXT FEW WEEKS. INSTRUCTIONS WERE GIVEN, QUESTIONS WERE ANSWERED, AND THE PATIENT EXPRESSED UNDERSTANDING AND AGREES WITH THE PLAN. I, LIZ FIGUEROA, DOCUMENTED THE ABOVE INFORMATION ACTING A SCRIBE FOR DR. VILLARREAL. I HAVE REVIEWED THE ABOVE DOCUMENT, WRITTEN BY LIZ HARRISON AND I VERIFY THAT IT IS ACCURATE PROCEDURE CODES 22605 CHEMODENERV MUSC MIGRAINE DISPOSITION & COMMUNICATION FOLLOW UP 3 WEEKS ELECTRONICALLY SIGNED BY DOLORES VILLARREAL MD ON 11/23/2016 AT 07:18 PM EDT DISCLAIMER : THIS IS A VISIT SUMMARY EXTRACTED FROM THE [employer] CHART. IT IS NOT A COPY OF THE [employer] PROGRESS NOTE. LESLIE
== END ==
LOC: M PAIN 09:00
PROVIDERS: ATTEND Anesthesiology
DX: G43.709 Chronic migraine without aura, not intractable, without status migrainosus (principal); B20 Human immunodeficiency virus [HIV] disease; E03.9 Hypothyroidism, unspecified; F33.1 Major depressive disorder, recurrent, moderate; L40.9 Psoriasis, unspecified; Z91.013 Allergy to seafood; Z88.2 Allergy status to sulfonamides; Z88.8 Allergy status to other drugs, medicaments and biological substances; Z79.891 Long term (current) use of opiate analgesic; Z79.899 Other long term (current) drug therapy
CPT/HCPCS: 64615; J0585

== ENCOUNTER → 2016-12-11 | Outpatient (REF) | payer MEDICARE, MEDICAID ==
[~2016-12-11] MED LIST changes: -BOTULINUM INJ 100 UNITS (J0585) IM ONE; -diazePAM 5 MG TAB As Ordered ONE; -oxyCODONE 5MG TAB As Ordered ONE
[2016-12-11 13:46] LABS: BASO % 0.5 % (0.0-1.0); EOS % 0.7 % (0.0-3.0); INR 0.94; LARGE UNSTAINED CELL # 0.1 K/mm3 (0.0-0.4); LARGE UNSTAINED CELL % 1.9 % (0.0-4.0); LYMPH # 1.4 K/mm3 (1.5-4.5); LYMPH % 25.7 % (24.0-44.0); MEAN CORPUSCULAR HEMOGLOBIN 33.5 pg (27.0-33.0); MEAN CORPUSCULAR HGB CONC 34.5 g/dl (32.0-36.5); MONO # 0.3 K/mm3 (0.0-0.8); MONO % 4.8 % (0.0-5.0); NEUTROPHILS # 3.6 K/mm3 (1.8-7.7); NEUTROPHILS % 66.4 % (36.0-66.0); PLATELET COUNT, AUTOMATED 235 k/mm3 (150-450); RED CELL DISTRIBUTION WIDTH 12.2 % (11.5-14.5); WHITE BLOOD COUNT 5.4 K/mm3 (4.0-10.0)
== END ==
LOC: M SFHCPLAZ 11:41
PROVIDERS: ATTEND Internal Medicine Infectious Disease
DX: R23.8 Other skin changes (principal); R35.0 Frequency of micturition; Z79.899 Other long term (current) drug therapy
CPT/HCPCS: 81001; 85025; 85610; 85730; 87086; G0463

== ENCOUNTER 2016-12-17 21:04 | Emergency (ER) | payer OTHER, MEDICARE, MEDICAID ==
[~2016-12-17] VITALS: Ht 167.6 cm; Wt 90.9 kg
[~2016-12-17 21:04] MED LIST changes: -AMBI10TA PO; -CEPH500T PO; -CYCL10TA PO; -LEVA750T7 PO; -PRED20TA PO; -SING10TA32 PO; -ZYRT10CA PO
[2016-12-17] MEDS ORDERED: CEPH500T PO (21:22)
[2016-12-17] MEDS ORDERED: KETOROLAC 60 MG/2 ML VIAL (J1885) IM ONE (22:30)
[2016-12-17] MEDS ORDERED: AMBI10TA PO (23:36)
[2016-12-17] MEDS ORDERED: CYCL10TA PO (23:36)
[2016-12-18 00:03] VITALS: BP 112/53
== END 2016-12-18 00:05 | disposition home or self-care (01) ==
LOC: M ED 21:04
DX: S16.1XXA Strain of muscle, fascia and tendon at neck level, initial encounter (principal); V49.9XXA Car occupant (driver) (passenger) injured in unspecified traffic accident, initial encounter; Y92.410 Unspecified street and highway as the place of occurrence of the external cause; Y93.89 Activity, other specified; Y99.8 Other external cause status; G43.909 Migraine, unspecified, not intractable, without status migrainosus; J30.9 Allergic rhinitis, unspecified; Z88.8 Allergy status to other drugs, medicaments and biological substances
CPT/HCPCS: 96372; 99282; J1885

== ENCOUNTER → 2016-12-18 | Outpatient (CLI) | payer MEDICARE, MEDICAID ==
[~2016-12-18] MED LIST changes: +AMBI10TA PO; +CEPH500T PO; +CYCL10TA PO; +LEVA750T7 PO; +PRED20TA PO; +SING10TA32 PO; +ZYRT10CA PO
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
== END ==
LOC: M PAIN 15:15
PROVIDERS: ATTEND Anesthesiology
DX: G89.29 Other chronic pain (principal); M51.16 Intervertebral disc disorders with radiculopathy, lumbar region; M79.1 Myalgia; B20 Human immunodeficiency virus [HIV] disease; E03.9 Hypothyroidism, unspecified; F33.1 Major depressive disorder, recurrent, moderate; J30.9 Allergic rhinitis, unspecified; L40.9 Psoriasis, unspecified; Z91.013 Allergy to seafood; Z88.2 Allergy status to sulfonamides; Z88.8 Allergy status to other drugs, medicaments and biological substances; Z79.1 Long term (current) use of non-steroidal anti-inflammatories (NSAID); Z79.899 Other long term (current) drug therapy

== ENCOUNTER → 2016-12-25 | Outpatient (CLI) | payer MEDICARE, MEDICAID ==
[~2016-12-25] MED LIST changes: +BUPIVACAINE HCL 0.25% 30 ML VIAL As Ordered ONE; +ISOVUE-M 300 61% 15ML VIAL (Q9967) As Ordered ONE; +LIDOCAINE 1% SDV INJ 30 ML VIAL As Ordered ONE; +TRIAMCINOLONE ACETONIDE SUSP 40 MG/ML VIAL (J3301) As Ordered ONE; +diazePAM 5 MG TAB As Ordered ONE; +oxyCODONE 5MG TAB As Ordered ONE
--- NOTE | 2016-12-25 17:08 | REP ---
Bilateral SI joint series: Six views. History: SI joint injection for pain. 32 seconds of fluoroscopy time is reported. Findings: A sequence of six last image hold fluoroscopic spot radiographs of the SI joints document needle position and contrast injection associated with injection procedure. Signed by Yosef Alejo MD 12/25/2016 06:03 P
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
== END ==
LOC: M PAIN 11:45
PROVIDERS: ATTEND Anesthesiology
DX: G89.29 Other chronic pain (principal); M46.1 Sacroiliitis, not elsewhere classified; M53.88 Other specified dorsopathies, sacral and sacrococcygeal region; E03.9 Hypothyroidism, unspecified; B20 Human immunodeficiency virus [HIV] disease; F33.1 Major depressive disorder, recurrent, moderate; J30.9 Allergic rhinitis, unspecified; L40.9 Psoriasis, unspecified; G43.709 Chronic migraine without aura, not intractable, without status migrainosus; Z91.013 Allergy to seafood; Z88.8 Allergy status to other drugs, medicaments and biological substances; Z79.891 Long term (current) use of opiate analgesic; Z79.1 Long term (current) use of non-steroidal anti-inflammatories (NSAID); Z79.899 Other long term (current) drug therapy
CPT/HCPCS: G0260; J3301; Q9967

== ENCOUNTER 2016-12-31 18:39 | Emergency (ER) | payer MEDICARE, MEDICAID ==
[~2016-12-31] VITALS: Ht 167.6 cm; Wt 100.0 kg
[~2016-12-31 18:39] MED LIST changes: -BUPIVACAINE HCL 0.25% 30 ML VIAL As Ordered ONE; -ISOVUE-M 300 61% 15ML VIAL (Q9967) As Ordered ONE; -LEVA750T7 PO; -LIDOCAINE 1% SDV INJ 30 ML VIAL As Ordered ONE; -PRED20TA PO; -SING10TA32 PO; -TRIAMCINOLONE ACETONIDE SUSP 40 MG/ML VIAL (J3301) As Ordered ONE; -ZYRT10CA PO; -diazePAM 5 MG TAB As Ordered ONE; -oxyCODONE 5MG TAB As Ordered ONE
[2016-12-31] MEDS ORDERED: LORazepam 2 MG TAB PO STA (19:24)
[2016-12-31 21:04] VITALS: BP 131/74
--- NOTE | 2017-01-05 09:58 | REP ---
Acute abdominal series series including PA chest and supine upright abdomen: PA chest: Comparison 10/04/2016. Lung canas are clear. Cardiac size is normal. The ramy, mediastinum, bony thorax unremarkable. There is no free subdiaphragmatic air. Impression: Negative PA chest. Abdomen, supine and upright views: Comparison is a CT of the abdomen pelvis dated seven 10/24/2015. The bowel gas pattern is normal. There are surgical clips in the right upper quadrant. There is an IUD centrally placed in the pelvis. There are calcifications inferiorly in the pelvis, likely phleboliths. The skeletal structures and soft tissues otherwise are unremarkable. Impression: Normal bowel gas pattern. IUD. The upper quadrant surgical clips. Pelvic calcifications, likely phleboliths. Signed by Luther Renner MD 01/05/2017 09:49 A
== END 2016-12-31 21:20 | disposition home or self-care (01) ==
LOC: M ED 18:39
DX: R10.2 Pelvic and perineal pain (principal); F41.9 Anxiety disorder, unspecified; F33.9 Major depressive disorder, recurrent, unspecified; G43.909 Migraine, unspecified, not intractable, without status migrainosus; B20 Human immunodeficiency virus [HIV] disease; E03.9 Hypothyroidism, unspecified; Z79.899 Other long term (current) drug therapy; Z97.5 Presence of (intrauterine) contraceptive device; F17.210 Nicotine dependence, cigarettes, uncomplicated

== ENCOUNTER → 2017-01-07 | Outpatient (CLI) | payer MEDICARE, MEDICAID ==
[~2017-01-07] MED LIST changes: +LEVA750T7 PO; +PRED20TA PO; +SING10TA32 PO; +ZYRT10CA PO
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
== END ==
LOC: M PAIN 15:30
PROVIDERS: ATTEND Anesthesiology
DX: G89.29 Other chronic pain (principal); M51.16 Intervertebral disc disorders with radiculopathy, lumbar region; M79.1 Myalgia; B20 Human immunodeficiency virus [HIV] disease; E03.9 Hypothyroidism, unspecified; F33.1 Major depressive disorder, recurrent, moderate; J30.9 Allergic rhinitis, unspecified; L40.9 Psoriasis, unspecified; G43.709 Chronic migraine without aura, not intractable, without status migrainosus; Z91.013 Allergy to seafood; Z88.8 Allergy status to other drugs, medicaments and biological substances; Z79.891 Long term (current) use of opiate analgesic; Z79.899 Other long term (current) drug therapy

== ENCOUNTER → 2017-01-21 | Outpatient (CLI) | payer MEDICARE, MEDICAID ==
[~2017-01-21] MED LIST changes: +BUPIVACAINE HCL 0.25% 30 ML VIAL As Ordered ONE; +ISOVUE-M 300 61% 15ML VIAL (Q9967) As Ordered ONE; +LIDOCAINE 1% SDV INJ 30 ML VIAL As Ordered ONE; +TRIAMCINOLONE ACETONIDE SUSP 40 MG/ML VIAL (J3301) As Ordered ONE; +diazePAM 5 MG TAB As Ordered ONE; +oxyCODONE 5MG TAB As Ordered ONE
--- NOTE | 2017-01-21 15:08 | REP ---
FACET BLOCK: The images were reviewed with Dr. Ying The patient has a history of neck pain. The portable C-arm was provided in the OR for Dr. Yan for fluoroscopic guidance. One intraoperative fluoroscopic spot films was obtained using last image hold technology for needle placement verification for bilateral cervical facet injection. The film is on the PACS system and is available for review. 8 seconds of fluoroscopy time was utilized for this procedure. Reviewed by DADA Lomax 01/21/2017 04:25 PEdited and Signed by Luther Ying MD 01/21/2017 05:04 P
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
== END ==
LOC: M PAIN 11:00
PROVIDERS: ATTEND Anesthesiology
DX: G89.29 Other chronic pain (principal); M47.812 Spondylosis without myelopathy or radiculopathy, cervical region; B20 Human immunodeficiency virus [HIV] disease; E03.9 Hypothyroidism, unspecified; F33.1 Major depressive disorder, recurrent, moderate; J30.9 Allergic rhinitis, unspecified; L40.9 Psoriasis, unspecified; G43.709 Chronic migraine without aura, not intractable, without status migrainosus; F17.210 Nicotine dependence, cigarettes, uncomplicated; Z91.013 Allergy to seafood; Z88.2 Allergy status to sulfonamides; Z88.8 Allergy status to other drugs, medicaments and biological substances; Z79.891 Long term (current) use of opiate analgesic; Z79.1 Long term (current) use of non-steroidal anti-inflammatories (NSAID); Z79.899 Other long term (current) drug therapy
CPT/HCPCS: 64490; 64491; J3301; Q9967

== ENCOUNTER 2017-01-29 08:45 | Emergency (ER) | payer MEDICARE, MEDICAID ==
[~2017-01-29] VITALS: Ht 167.6 cm; Wt 94.7 kg
[~2017-01-29 08:45] MED LIST changes: -BUPIVACAINE HCL 0.25% 30 ML VIAL As Ordered ONE; -ISOVUE-M 300 61% 15ML VIAL (Q9967) As Ordered ONE; -LEVA750T7 PO; -LIDOCAINE 1% SDV INJ 30 ML VIAL As Ordered ONE; -PRED20TA PO; -SING10TA32 PO; -TRIAMCINOLONE ACETONIDE SUSP 40 MG/ML VIAL (J3301) As Ordered ONE; -ZYRT10CA PO; -diazePAM 5 MG TAB As Ordered ONE; -oxyCODONE 5MG TAB As Ordered ONE
[2017-01-29 08:46] VITALS: BP 143/86
[2017-01-29] MEDS ORDERED: ZYRT10CA PO (08:59)
[2017-01-29] MEDS ORDERED: SING10TA32 PO (08:59)
[2017-01-29] MEDS ORDERED: LEVA750T7 PO (09:46)
[2017-01-29] MEDS ORDERED: PRED20TA PO (09:46)
== END 2017-01-29 10:12 | disposition home or self-care (01) ==
LOC: M ED 08:45
DX: J01.90 Acute sinusitis, unspecified (principal); E03.9 Hypothyroidism, unspecified; F41.9 Anxiety disorder, unspecified; F33.9 Major depressive disorder, recurrent, unspecified; B20 Human immunodeficiency virus [HIV] disease; G43.909 Migraine, unspecified, not intractable, without status migrainosus; J30.9 Allergic rhinitis, unspecified; Z97.5 Presence of (intrauterine) contraceptive device; Z79.899 Other long term (current) drug therapy; Z88.8 Allergy status to other drugs, medicaments and biological substances

== ENCOUNTER → 2017-02-16 | Outpatient (CLI) | payer MEDICARE, MEDICAID ==
[~2017-02-16] MED LIST changes: +ASPI1TAB15 PO; +LEVA750T7 PO; +PRED20TA PO; +SING10TA32 PO; +VALA500T2 PO; +ZYRT10CA PO
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
== END ==
LOC: M PAIN 14:30
PROVIDERS: ATTEND Nurse Practitioner Family
DX: G89.29 Other chronic pain (principal); M54.2 Cervicalgia; G43.009 Migraine without aura, not intractable, without status migrainosus; M46.94 Unspecified inflammatory spondylopathy, thoracic region; M54.6 Pain in thoracic spine; E03.9 Hypothyroidism, unspecified; F32.9 Major depressive disorder, single episode, unspecified; F41.9 Anxiety disorder, unspecified; J30.9 Allergic rhinitis, unspecified; G43.909 Migraine, unspecified, not intractable, without status migrainosus; Z79.891 Long term (current) use of opiate analgesic; Z79.1 Long term (current) use of non-steroidal anti-inflammatories (NSAID); Z79.899 Other long term (current) drug therapy; Z87.891 Personal history of nicotine dependence; Z91.013 Allergy to seafood; Z88.8 Allergy status to other drugs, medicaments and biological substances

== ENCOUNTER 2017-02-22 01:37 | Emergency (ER) | payer MEDICARE, MEDICAID ==
[~2017-02-22] VITALS: Ht 167.6 cm; Wt 95.0 kg
[~2017-02-22 01:37] MED LIST changes: -ASPI1TAB15 PO; -VALA500T2 PO
[2017-02-22] MEDS ORDERED: ASPI1TAB15 PO (01:51)
[2017-02-22] MEDS ORDERED: methylPREDNISolone INJ 125 MG/2 ML VIAL (J2930) IV ONE (02:30)
[2017-02-22 02:31] LABS: BASO % 0.4 % (0.0-1.0); EOS % 0.1 % (0.0-3.0); IMMATURE GRANULOCYTE % 0.4 % (0-0); LYMPH % 24.5 % (24.0-44.0); MEAN CORPUSCULAR HEMOGLOBIN 32.4 pg (27.0-33.0); MEAN CORPUSCULAR HGB CONC 34.3 g/dl (32.0-36.5); MEAN CORPUSCULAR VOLUME 94.7 fl (80.0-96.0); MONO # 0.6 10^3/uL (0.0-0.8); MONO % 7.1 % (0.0-5.0); NEUTROPHILS # 5.4 10^3/uL (1.8-7.7); NEUTROPHILS % 67.5 % (36.0-66.0); PLATELET COUNT, AUTOMATED 262 10^3/uL (150-450); RED CELL DISTRIBUTION WIDTH 12.1 % (11.5-14.5)
[2017-02-22 02:34] LABS: INR 1.03
[2017-02-22 02:39] LABS: ANION GAP 6 MEQ/L (8-16); BLOOD UREA NITROGEN 12 MG/DL (7-18); CARBON DIOXIDE LEVEL 27 MEQ/L (21-32); CHLORIDE LEVEL 104 MEQ/L (98-107); CREATININE FOR GFR 0.64 MG/DL (0.55-1.02); GLOMERULAR FILTRATION RATE > 60.0 (>58); GLUCOSE, FASTING 92 MG/DL (70-105); POTASSIUM SERUM 4.4 MEQ/L (3.5-5.1); SODIUM LEVEL 137 MEQ/L (136-145)
--- NOTE | 2017-02-22 03:10 | REPUSA ---
CLINICAL HISTORY: Headaches. TECHNIQUE: Multiple axial brain CT scan sections were obtained from base to vertex without contrast a dministration. COMMENTS: The study shows normal configuration of sella turcica. There are no intra or extra-axial collections. There is no mass effect or midline shift. There is no evidence of hematoma formation. No hydrocephal us is present. No abnormal calcifications are noted. No significant abnormalities are seen either in the posterior fossa or supratentorial compartment. The sinuses and mastoid air cells are patent. IMPRESSION: No evidence of acute intracranial pathology. Thank you for your kind referral of this patient.
[2017-02-22] MEDS ORDERED: MORPHINE 4 MG/ML 1ML SYRINGE IV PRN (03:15)
--- NOTE | 2017-02-22 03:20 | REPUSA ---
HISTORY: Left facial droop, pain. COMPARISON: Not provided. TECHNIQUE: Multiple thin section helically-acquired axially-displayed and helically acquired coronall y displayed computed tomographic images of the face are obtained from the mandible through the fronta l sinuses, with images obtained at soft tissue and bone window. 2D reformatted images were performed. FINDINGS: Chronic mucosal inflammatory changes in the right maxilla sinus. Normal bony mineralization. No fractures. Normal orbits. Normal, clear paranasal sinuses. Normal oral and nasal cavities. Normal infratemporal fossa and deep parapharyngeal spaces with normal muscles of mastication. Normal parotid and submandibular glands. IMPRESSION: Chronic mucosal inflammatory changes in the right maxillary sinus. Otherwise, unremarkable exam. Thank you for your kind referral of this patient
[2017-02-22] MEDS ORDERED: PRED20TA PO (03:45)
[2017-02-22] MEDS ORDERED: valACYclovir HCL 500 MG TAB PO ONE (03:45)
[2017-02-22] MEDS ORDERED: VALA500T2 PO (03:45)
[2017-02-22 04:11] VITALS: BP 115/62
== END 2017-02-22 04:18 | disposition home or self-care (01) ==
LOC: M ED 01:37
DX: B20 Human immunodeficiency virus [HIV] disease (principal); G51.0 Bell's palsy
CPT/HCPCS: 70450; 70486; 80048; 85025; 85610; 85730; 96374; 96375; 99284; J2930

== ENCOUNTER → 2017-03-17 | Outpatient (CLI) | payer MEDICARE, MEDICAID | LOC: M PAIN 11:15 | DX: M54.2 Cervicalgia (principal); G43.009 Migraine without aura, not intractable, without status migrainosus; M46.94 Unspecified inflammatory spondylopathy, thoracic region; M54.6 Pain in thoracic spine; B20 Human immunodeficiency virus [HIV] disease; E03.9 Hypothyroidism, unspecified; F32.9 Major depressive disorder, single episode, unspecified; F41.9 Anxiety disorder, unspecified; G43.909 Migraine, unspecified, not intractable, without status migrainosus; Z88.2 Allergy status to sulfonamides; Z88.8 Allergy status to other drugs, medicaments and biological substances; Z91.013 Allergy to seafood; Z79.1 Long term (current) use of non-steroidal anti-inflammatories (NSAID); Z79.891 Long term (current) use of opiate analgesic; Z79.899 Other long term (current) drug therapy; Z87.891 Personal history of nicotine dependence | CPT/HCPCS: G0463 ==

== ENCOUNTER → 2017-03-25 | Outpatient (CLI) | payer MEDICARE, MEDICAID ==
[~2017-03-25] MED LIST changes: -/DULO30CA; -/FENT25PA TD; -/FENT50PA; -/LAMO10TA; -/MOXI40TA OR; -/ONDA4TA PO; -/PREG50CA PO; -ABIL10TA OR; -ACET20VL PO; -ADDE20CA3 PO; -ADDE30CA3 PO; -ADVAIR; -ADVAIR OR; -AMBI10TA PO; -ASPI81CH PO; -ATEN50TA2 PO; -ATIV1TAB2; -ATIV1TAB2 OR; -ATIV1TAB7 PO; -ATRIPLA; +BUPIVACAINE HCL 0.25% 10 ML VIAL As Ordered; +BUPIVACAINE HCL 0.25% 30 ML VIAL As Ordered; -BUPR15TA; -BUPR15TA OR; -BUPRENORPHINE; -BUPRENORPHINE TD; -BUTA1CAP PO; -BUTR10DI2 TOP; -BUTR1DIS TD; -CALCTAB22 OR; -CEPH500T PO; -CETI10TA; -CETI10TA OR; -CHROMIUM PICOLINATE; -CLEO300C2 PO; -CLON0.5T PO; -COMBIVIR PO; -COMPAZINE; -COQ1200C2 PO; -CYCL10TA PO; -DIAZ5TAB PO; -DICL50TA2 PO; -DIFL150T PO; -DIFL200T PO; -DIPHENHIST; -DIPHENHIST OR; -DOXY-278 PO; -FIORCAP7 PO; -FIORICET; -FIORICET OR; -FIORTAB PO; -FLEXERIL; -GABA PO; -GABA-279 PO; -GENV1TAB PO; -GINS100C2 PO; -GINSING OR; -IBUP200T2 PO; -IBUP600T OR; -IMIT4KIT SC; -IMIT50TA PO; -IMIT6INJ; -IMIT6INJ IJ; -IMIT6INJ SC; -ISENTRESS PO; -KEFL500C17 PO; -LASI20TA; -LASI20TA OR; -LASI20TA PO; -LEVA750T7 PO; -LINZ290C PO; -LIOT5TAB PO; -LITH150C PO; -LORA1TAB PO; -LORA1TAB12 PO; -MAGN500T5 PO; -MELA3TAB49 PO; -MELA5TAB13 PO; -MELOPOW; -MELOPOW OR; -METR1TAB66; -MIREIUD IU; -MORP10SU PR; -MS C15TA5 OR; -MS C200T PO; -MULTCAP PO; -N-ACCAP PO; -NEUR600T PO; -OXYC-517 PO; -PAXI20TA OR; -PRED20TA PO; -PREG50CA PO; -PRIL20CA PO; -PROBCAP4 PO; -PROCHLORPERAZINE; -PROCHLORPERAZINE OR; -PROTPAK PO; -PROV90AE; -PROV90AE IN; -Prochlorperazine PO; -RHINOCORT; -RIBO400T PO; -ROZEREM; -ROZEREM OR; -SAVELLA; -SAVELLA OR; -SERT-138; -SERT50TA PO; -SILVER PO; -SING10TA31; -SING10TA31 OR; -SING10TA32 PO; -SING4GRA PO; -SOMA350T; -SOMA350T PO; -STRITAB2 PO; -SUDA30TA; -SUDA30TA OR; -SUDA30TA PO; -SULFAMETHOXAZOLE-TMP; -SUMA125TA; -SYNT150T; -SYNT150T OR; -TENO1TAB PO; -TOPA200T PO; -TOPI200T; -TOPI200T OR; -TRAM50TA2; -TRAM50TA2 PO; -TRAZ50TA11 PO; +TRIAMCINOLONE ACETONIDE SUSP 40 MG/ML VIAL (J3301) As Ordered; -ULTR50TA PO; -VICO5TAB; -VICO5TAB OR; -VICODINES TAB OR; -VOLT1GEL EX; -WELL100T2; -XANA0.5T PO; -ZANA4CAP; -ZANA4CAP OR; -ZINC220T2; -ZOFR4TAB3 PO; -ZOLO100T; -ZOLO50TA PO; -ZYRT10CA PO; -[UNRECOGNIZED DRUG - CODE] PO; -[UNRECOGNIZED DRUG - OTHER]; -[UNRECOGNIZED DRUG - OTHER] OR; -[UNRECOGNIZED DRUG - OTHER] OR; -[UNRECOGNIZED DRUG - OTHER] PO; -[UNRECOGNIZED DRUG - OTHER] PO; -ambien PO; +diazePAM 5 MG TAB As Ordered; +oxyCODONE 5MG TAB As Ordered; -oxycodone PO; -rozerem PO; -topamax PO
== END ==
LOC: M PAIN 10:15
DX: G89.29 Other chronic pain (principal); M54.2 Cervicalgia; M25.511 Pain in right shoulder; M25.512 Pain in left shoulder; M79.1 Myalgia; E03.9 Hypothyroidism, unspecified; F32.9 Major depressive disorder, single episode, unspecified; F41.9 Anxiety disorder, unspecified; G43.909 Migraine, unspecified, not intractable, without status migrainosus; Z91.013 Allergy to seafood; Z88.8 Allergy status to other drugs, medicaments and biological substances; Z79.891 Long term (current) use of opiate analgesic; Z79.899 Other long term (current) drug therapy; Z21 Asymptomatic human immunodeficiency virus [HIV] infection status
CPT/HCPCS: J3301

== ENCOUNTER → 2017-04-13 | Outpatient (REF) | payer MEDICARE, MEDICAID ==
[2017-04-13 16:24] LABS: ALBUMIN 4.1 GM/DL (3.2-5.2); ALBUMIN/GLOBULIN RATIO 1.32 (1.00-1.93); ALKALINE PHOSPHATASE 88 U/L (45-117); ALT/SGPT 20 U/L (12-78); ANION GAP 8 MEQ/L (8-16); AST/SGOT 17 U/L (7-37); BILIRUBIN,TOTAL 0.3 MG/DL (0.2-1.0); BLOOD UREA NITROGEN 9 MG/DL (7-18); CALCIUM LEVEL 8.8 MG/DL (8.5-10.1); CARBON DIOXIDE LEVEL 27 MEQ/L (21-32); CHLORIDE LEVEL 106 MEQ/L (98-107); CREATININE FOR GFR 0.66 MG/DL (0.55-1.02); GLOMERULAR FILTRATION RATE > 60.0 (>58); GLUCOSE, FASTING 66 MG/DL (70-105); POTASSIUM SERUM 4.2 MEQ/L (3.5-5.1); SODIUM LEVEL 141 MEQ/L (136-145); TOTAL PROTEIN 7.2 GM/DL (6.4-8.2)
[2017-04-13 21:38] LABS: CHLAMYDIA DNA AMPLIFICATION NEGATIVE (NEGATIVE); GC DNA AMPLIFICATION NEGATIVE (NEGATIVE)
[2017-04-16 14:20] LABS: % CD8 Pos Lymph 28.7 % (12.0-35.5); ABS Eosinophils 0.1 x10E3/uL (0.0-0.4); ABS Lymphs 2.4 x10E3/uL (0.7-3.1); ABS Monocytes 0.6 x10E3/uL (0.1-0.9); ABS Neutophils 6.7 x10E3/uL (1.4-7.0); Abs CD4 Helper 1152 /uL (359-1519); Abs CD8 Suppres 689 /uL (109-897); CD4/CD8 Ratio 1.67 (0.92-3.72); Eosinophils 1 % (Not Estab.); HCT 47.4 % (34.0-46.6); HGB 15.6 g/dL (11.1-15.9); HIV-1 RNA PCR QUANT 2 LC550285 <20 copies/mL (.); Immature Grans 0 % (Not Estab.); Lyme Disease IgG/IgM Antibodie <0.91 ISR (0.00-0.90); Lyme Disease IgM Ab Quantitati <0.80 index (0.00-0.79); Lymphocytes 25 % (Not Estab.); MCH 33.1 pg (26.6-33.0); MCHC 32.9 g/dL (31.5-35.7); MCV 101 fL (79-97); Monocytes 6 % (Not Estab.); Neutrophils 68 % (Not Estab.); Platelets 322 x10E3/uL (150-379); QUANTIFERON GOLD TB Negative (Negative); RBC 4.71 x10E6/uL (3.77-5.28); RDW 13.4 % (12.3-15.4); TB Test (QFT) Antigen 0.04 IU/mL (.); TB Test (QFT) Antigen Minus Ni <0.01 IU/mL (.); TB Test (QFT) Mitogen 5.68 IU/mL (.); TB Test (QFT) Nil 0.05 IU/mL (.); WBC 9.7 x10E3/uL (3.4-10.8)
== END ==
LOC: M SFHCPLAZ 12:48
DX: B20 Human immunodeficiency virus [HIV] disease (principal); G51.0 Bell's palsy; Z11.3 Encounter for screening for infections with a predominantly sexual mode of transmission
CPT/HCPCS: 80053

== ENCOUNTER → 2017-04-27 | Outpatient (CLI) | payer MEDICARE, MEDICAID ==
[~2017-04-27] MED LIST changes: +BOTULINUM INJ 100 UNITS (J0585) IM; -BUPIVACAINE HCL 0.25% 10 ML VIAL As Ordered; -BUPIVACAINE HCL 0.25% 30 ML VIAL As Ordered; -TRIAMCINOLONE ACETONIDE SUSP 40 MG/ML VIAL (J3301) As Ordered
== END ==
LOC: M PAIN 11:30
DX: G43.709 Chronic migraine without aura, not intractable, without status migrainosus (principal); B20 Human immunodeficiency virus [HIV] disease; E03.9 Hypothyroidism, unspecified; F33.9 Major depressive disorder, recurrent, unspecified; F41.9 Anxiety disorder, unspecified; J30.9 Allergic rhinitis, unspecified; G43.909 Migraine, unspecified, not intractable, without status migrainosus; Z79.899 Other long term (current) drug therapy; Z91.013 Allergy to seafood; Z88.8 Allergy status to other drugs, medicaments and biological substances; Z87.891 Personal history of nicotine dependence
CPT/HCPCS: J0585

== ENCOUNTER → 2017-05-06 | Outpatient (RCR) | payer MEDICARE, MEDICAID | END | disposition home or self-care (01) | LOC: M PT 10:40 | DX: Z51.89 Encounter for other specified aftercare (principal); G51.0 Bell's palsy | CPT/HCPCS: 97032 ==

== ENCOUNTER 2017-05-08 10:35 | Outpatient (RCR) | payer MEDICARE, MEDICAID | END 2017-06-03 | LOC: M PT 05-12 08:45 | DX: Z51.89 Encounter for other specified aftercare (principal); G51.0 Bell's palsy | CPT/HCPCS: 97110 ==

== ENCOUNTER → 2017-05-11 | Outpatient (CLI) | payer MEDICARE, MEDICAID | LOC: M PAIN 14:00 | DX: G43.009 Migraine without aura, not intractable, without status migrainosus (principal); M46.94 Unspecified inflammatory spondylopathy, thoracic region; B20 Human immunodeficiency virus [HIV] disease; E03.9 Hypothyroidism, unspecified; F32.9 Major depressive disorder, single episode, unspecified; F41.9 Anxiety disorder, unspecified; J30.9 Allergic rhinitis, unspecified; G43.909 Migraine, unspecified, not intractable, without status migrainosus; Z79.899 Other long term (current) drug therapy; Z88.2 Allergy status to sulfonamides; Z88.8 Allergy status to other drugs, medicaments and biological substances; Z91.013 Allergy to seafood; Z87.891 Personal history of nicotine dependence | CPT/HCPCS: G0463 ==

== ENCOUNTER → 2017-05-14 | Outpatient (CLI) | payer MEDICARE, MEDICAID | LOC: M RAD 14:58 | DX: J32.0 Chronic maxillary sinusitis (principal) | CPT/HCPCS: 70486 ==

== ENCOUNTER → 2017-05-26 | Outpatient (CLI) | payer MEDICARE, MEDICAID ==
[~2017-05-26] MED LIST changes: -BOTULINUM INJ 100 UNITS (J0585) IM; +BUPIVACAINE HCL 0.25% 30 ML VIAL As Ordered; +ISOVUE-M 300 61% 15ML VIAL (Q9967) As Ordered; +LIDOCAINE 1% SDV INJ 30 ML VIAL As Ordered; +TRIAMCINOLONE ACETONIDE SUSP 40 MG/ML VIAL (J3301) As Ordered
== END ==
LOC: M PAIN 11:15
DX: G89.29 Other chronic pain (principal); M47.816 Spondylosis without myelopathy or radiculopathy, lumbar region; M47.817 Spondylosis without myelopathy or radiculopathy, lumbosacral region; B20 Human immunodeficiency virus [HIV] disease; E03.9 Hypothyroidism, unspecified; F32.9 Major depressive disorder, single episode, unspecified; F41.9 Anxiety disorder, unspecified; G43.909 Migraine, unspecified, not intractable, without status migrainosus; Z79.899 Other long term (current) drug therapy; Z88.8 Allergy status to other drugs, medicaments and biological substances; Z91.013 Allergy to seafood
CPT/HCPCS: J3301

== ENCOUNTER → 2017-07-03 | Outpatient (CLI) | payer MEDICARE, MEDICAID | LOC: M PAIN 11:15 | DX: M46.94 Unspecified inflammatory spondylopathy, thoracic region (principal); B20 Human immunodeficiency virus [HIV] disease; E03.9 Hypothyroidism, unspecified; F32.9 Major depressive disorder, single episode, unspecified; F41.9 Anxiety disorder, unspecified; J30.9 Allergic rhinitis, unspecified; G43.909 Migraine, unspecified, not intractable, without status migrainosus; Z79.891 Long term (current) use of opiate analgesic; Z79.899 Other long term (current) drug therapy; Z88.8 Allergy status to other drugs, medicaments and biological substances; Z91.013 Allergy to seafood | CPT/HCPCS: G0463 ==

== ENCOUNTER → 2017-07-03 | Outpatient (CLI) | payer MEDICARE, MEDICAID ==
[2017-07-03 14:24] LABS: TOTAL T3 57.7 NG/DL (60.0-181.0)
[2017-07-03 14:29] LABS: CHOLESTEROL LEVEL 252 MG/DL (<200); CHOLESTEROL RISK RATIO 3.652 (<5); FREE T4 0.69 NG/DL (0.76-1.46); HDL CHOLESTEROL 69 MG/DL (>40); LDL CHOLESTEROL 149.4 MG/DL (<100); NON-HDL-C 183 MG/DL; TRIGLYCERIDES LEVEL 168 MG/DL (<150)
[2017-07-03 21:32] LABS: FREE T3 1.8 PG/ML (2.2-4.0)
== END ==
LOC: M LAB 13:19
DX: E03.9 Hypothyroidism, unspecified (principal)
CPT/HCPCS: 84443

== ENCOUNTER → 2017-07-21 | Outpatient (CLI) | payer MEDICARE, MEDICAID ==
[~2017-07-21] MED LIST changes: -TRIAMCINOLONE ACETONIDE SUSP 40 MG/ML VIAL (J3301) As Ordered; -diazePAM 5 MG TAB As Ordered; -oxyCODONE 5MG TAB As Ordered
== END ==
LOC: M PAIN 08:45
DX: G89.29 Other chronic pain (principal); M47.816 Spondylosis without myelopathy or radiculopathy, lumbar region; M47.817 Spondylosis without myelopathy or radiculopathy, lumbosacral region; Z21 Asymptomatic human immunodeficiency virus [HIV] infection status; E03.9 Hypothyroidism, unspecified; F32.89 Other specified depressive episodes; F41.9 Anxiety disorder, unspecified; J30.9 Allergic rhinitis, unspecified; G43.909 Migraine, unspecified, not intractable, without status migrainosus; Z79.899 Other long term (current) drug therapy; Z88.2 Allergy status to sulfonamides; Z88.8 Allergy status to other drugs, medicaments and biological substances; Z91.013 Allergy to seafood
CPT/HCPCS: Q9967

== ENCOUNTER → 2017-07-28 | Outpatient (CLI) | payer MEDICARE, MEDICAID ==
[~2017-07-28] MED LIST changes: +BOTULINUM INJ 100 UNITS (J0585) IM; -BUPIVACAINE HCL 0.25% 30 ML VIAL As Ordered; -ISOVUE-M 300 61% 15ML VIAL (Q9967) As Ordered; -LIDOCAINE 1% SDV INJ 30 ML VIAL As Ordered; +diazePAM 5 MG TAB As Ordered; +oxyCODONE 5MG TAB As Ordered
== END ==
LOC: M PAIN 11:30
DX: G43.709 Chronic migraine without aura, not intractable, without status migrainosus (principal); E03.9 Hypothyroidism, unspecified; F32.9 Major depressive disorder, single episode, unspecified; F41.9 Anxiety disorder, unspecified; G43.909 Migraine, unspecified, not intractable, without status migrainosus; Z21 Asymptomatic human immunodeficiency virus [HIV] infection status; Z79.899 Other long term (current) drug therapy; Z88.2 Allergy status to sulfonamides; Z88.8 Allergy status to other drugs, medicaments and biological substances; Z91.013 Allergy to seafood
CPT/HCPCS: J0585

== ENCOUNTER → 2017-08-04 | Outpatient (CLI) | payer MEDICARE, MEDICAID | LOC: M PAIN 11:00 | DX: G89.29 Other chronic pain (principal); M47.817 Spondylosis without myelopathy or radiculopathy, lumbosacral region; M79.1 Myalgia; M54.2 Cervicalgia; B00.9 Herpesviral infection, unspecified; E03.9 Hypothyroidism, unspecified; F32.9 Major depressive disorder, single episode, unspecified; F41.9 Anxiety disorder, unspecified; G43.909 Migraine, unspecified, not intractable, without status migrainosus; R75 Inconclusive laboratory evidence of human immunodeficiency virus [HIV]; Z79.891 Long term (current) use of opiate analgesic; Z79.899 Other long term (current) drug therapy; Z91.030 Bee allergy status; Z88.8 Allergy status to other drugs, medicaments and biological substances | CPT/HCPCS: G0463 ==

== ENCOUNTER → 2017-08-17 | Outpatient (CLI) | payer MEDICARE, MEDICAID ==
[~2017-08-17] MED LIST changes: -BOTULINUM INJ 100 UNITS (J0585) IM; +BUPIVACAINE HCL 0.25% 30 ML VIAL As Ordered; +ISOVUE-M 300 61% 15ML VIAL (Q9967) As Ordered; +LIDOCAINE 1% SDV INJ 30 ML VIAL As Ordered; -diazePAM 5 MG TAB As Ordered; -oxyCODONE 5MG TAB As Ordered
== END ==
LOC: M PAIN 08:45
DX: G89.29 Other chronic pain (principal); M47.816 Spondylosis without myelopathy or radiculopathy, lumbar region; M47.817 Spondylosis without myelopathy or radiculopathy, lumbosacral region; Z21 Asymptomatic human immunodeficiency virus [HIV] infection status; E03.9 Hypothyroidism, unspecified; F32.9 Major depressive disorder, single episode, unspecified; F41.9 Anxiety disorder, unspecified; G43.909 Migraine, unspecified, not intractable, without status migrainosus; Z79.899 Other long term (current) drug therapy; Z88.2 Allergy status to sulfonamides; Z88.8 Allergy status to other drugs, medicaments and biological substances; Z91.013 Allergy to seafood
CPT/HCPCS: Q9967

== ENCOUNTER → 2017-09-01 | Outpatient (CLI) | payer MEDICARE, MEDICAID | LOC: M PAIN 10:45 | DX: M47.817 Spondylosis without myelopathy or radiculopathy, lumbosacral region (principal); M79.1 Myalgia; M54.2 Cervicalgia; E03.9 Hypothyroidism, unspecified; F32.9 Major depressive disorder, single episode, unspecified; F41.9 Anxiety disorder, unspecified; G43.909 Migraine, unspecified, not intractable, without status migrainosus; J30.9 Allergic rhinitis, unspecified; B00.9 Herpesviral infection, unspecified; Z79.891 Long term (current) use of opiate analgesic; Z79.899 Other long term (current) drug therapy; Z91.013 Allergy to seafood; Z88.8 Allergy status to other drugs, medicaments and biological substances | CPT/HCPCS: G0463 ==

== ENCOUNTER 2017-09-04 12:23 | Outpatient (RCR) | payer MEDICARE, MEDICAID | END 2017-10-03 | LOC: M PT 09-07 09:55 | DX: Z51.89 Encounter for other specified aftercare (principal); M47.817 Spondylosis without myelopathy or radiculopathy, lumbosacral region; M79.1 Myalgia; M54.2 Cervicalgia | CPT/HCPCS: 97110 ==

== ENCOUNTER → 2017-09-15 | Outpatient (REF) | payer MEDICARE, MEDICAID ==
[2017-09-15 15:28] LABS: BASO # 0.1 10^3/uL (0.0-0.2); BASO % 0.6 % (0.0-1.0); EOS # 0.1 10^3/uL (0.0-0.50); EOS % 0.8 % (0.0-3.0); HEMATOCRIT 46.7 % (36.0-47.0); HEMOGLOBIN 15.6 g/dl (12.0-15.5); IMMATURE GRANULOCYTE % 0.2 % (0-3.0); LYMPH # 1.9 10^3/uL (1.5-4.5); LYMPH % 22.1 % (24.0-44.0); MEAN CORPUSCULAR HEMOGLOBIN 32.6 pg (27.0-33.0); MEAN CORPUSCULAR HGB CONC 33.4 g/dl (32.0-36.5); MEAN CORPUSCULAR VOLUME 97.5 fl (80.0-96.0); MONO # 0.6 10^3/uL (0.0-0.8); NEUTROPHILS % 69.3 % (36.0-66.0); PLATELET COUNT, AUTOMATED 318 10^3/uL (150-450); RED BLOOD COUNT 4.79 10^6/uL (4.00-5.40); RED CELL DISTRIBUTION WIDTH 12.3 % (11.5-14.5); WHITE BLOOD COUNT 8.6 10^3/uL (4.0-10.0)
[2017-09-15 15:47] LABS: ALBUMIN 3.7 GM/DL (3.2-5.2); ALBUMIN/GLOBULIN RATIO 1.16 (1.00-1.93); ALKALINE PHOSPHATASE 93 U/L (45-117); ALT/SGPT 22 U/L (12-78); ANION GAP 6 MEQ/L (8-16); AST/SGOT 15 U/L (7-37); BILIRUBIN,TOTAL 0.3 MG/DL (0.2-1.0); BLOOD UREA NITROGEN 11 MG/DL (7-18); CALCIUM LEVEL 8.8 MG/DL (8.5-10.1); CARBON DIOXIDE LEVEL 30 MEQ/L (21-32); CHLORIDE LEVEL 104 MEQ/L (98-107); CHOLESTEROL LEVEL 269 MG/DL (<200); CHOLESTEROL RISK RATIO 4.719 (<5); CREATININE FOR GFR 0.82 MG/DL (0.55-1.30); GLOMERULAR FILTRATION RATE > 60.0 (>58); GLUCOSE, FASTING 87 MG/DL (70-100); HDL CHOLESTEROL 57 MG/DL (>40); NON-HDL-C 212 MG/DL; POTASSIUM SERUM 4.5 MEQ/L (3.5-5.1); SODIUM LEVEL 140 MEQ/L (136-145); TOTAL PROTEIN 6.9 GM/DL (6.4-8.2); TRIGLYCERIDES LEVEL 415 MG/DL (<150)
[2017-09-15 15:49] LABS: ESTIMATED AVERAGE GLUCOSE 94 MG/DL (60-110); HEMOGLOBIN A1c 4.9 %
[2017-09-19 00:07] LABS: % CD8 Pos Lymph 27.7 % (12.0-35.5); %CD4 Pos Lymphs 46.6 % (30.8-58.5); ABS Eosinophils 0.1 x10E3/uL (0.0-0.4); ABS Lymphs 1.9 x10E3/uL (0.7-3.1); ABS Monocytes 0.5 x10E3/uL (0.1-0.9); ABS Neutophils 5.8 x10E3/uL (1.4-7.0); Abs CD4 Helper 885 /uL (359-1519); Abs CD8 Suppres 526 /uL (109-897); CD4/CD8 Ratio 1.68 (0.92-3.72); Eosinophils 1 % (Not Estab.); HCT 47.8 % (34.0-46.6); HGB 15.7 g/dL (11.1-15.9); HIV-1 RNA PCR QUANT 2 LC550285 <20 copies/mL (.); Immature Grans 0 % (Not Estab.); Lymphocytes 23 % (Not Estab.); MCH 32.8 pg (26.6-33.0); MCHC 32.8 g/dL (31.5-35.7); MCV 100 fL (79-97); Monocytes 6 % (Not Estab.); Neutrophils 70 % (Not Estab.); Platelets 326 x10E3/uL (150-379); RBC 4.78 x10E6/uL (3.77-5.28); RDW 13.3 % (12.3-15.4); WBC 8.3 x10E3/uL (3.4-10.8)
== END ==
LOC: M SFHCPLAZ 13:33
DX: Z01.818 Encounter for other preprocedural examination (principal); J32.0 Chronic maxillary sinusitis; J34.2 Deviated nasal septum; B20 Human immunodeficiency virus [HIV] disease; E78.00 Pure hypercholesterolemia, unspecified; Z79.899 Other long term (current) drug therapy
CPT/HCPCS: 80053

== ENCOUNTER 2017-09-22 08:32 | Day surgery (SDC) | payer MEDICARE, MEDICAID ==
[2017-09-22] MEDS ORDERED: LIDOCAINE 1% MDV 20ML VIAL SQ (09:00)
[2017-09-22] MEDS ORDERED: LR 1,000 ML IV ×2 (09:00→13:00)
[2017-09-22] MEDS ORDERED: fentaNYL 100 MCG/2 ML INJECTION (J3010) As Ordered ×3 (09:53→11:44)
[2017-09-22] MEDS ORDERED: MIDAZOLAM INJ 2 MG/2 ML VIAL (J2250) As Ordered ×2 (09:53→12:28)
[2017-09-22] MEDS ORDERED: ROCURONIUM BROMIDE 50 MG/5 ML VIAL As Ordered ×2 (09:54→11:43)
[2017-09-22] MEDS: SODIUM CHLORIDE 0.9% NASAL GEL 15GM (AYR) As Ordered (10:26)
[2017-09-22] MEDS: dexameTHASONE 4 MG/ML 1ML VIAL (J1100) IV (10:37)
[2017-09-22] MEDS: METHYLENE BLUE 0.5% (5MG/ML) 10 ML AMP (PROVAYBLUE)(Q9968 PER 1MG) As Ordered (11:04)
[2017-09-22] MEDS: EPINEPHrine 1MG/ML INJ 30ML MD-VIAL As Ordered (11:04)
[2017-09-22] MEDS ORDERED: LIDOCAINE 2% INJ 100 MG/5 ML SDV (FOR ANES.) As Ordered (11:11)
[2017-09-22] MEDS ORDERED: ONDANSETRON 4MG/2ML VIAL (J2405) As Ordered (11:11)
[2017-09-22] MEDS ORDERED: PROPOFOL 200 MG/20 ML VIAL As Ordered (11:11)
[2017-09-22] MEDS ORDERED: LABETALOL HCL 100 MG/20 ML VIAL As Ordered (11:27)
[2017-09-22] MEDS: LIDOCAINE W/EPINEPHRINE 1% 20ML VIAL As Ordered (12:15)
[2017-09-22] MEDS: LR 1,000 ML IV (12:34)
[2017-09-22] MEDS ORDERED: fentaNYL 100 MCG/2 ML INJECTION (J3010) IV (12:45)
[2017-09-22] MEDS: PERCOCET 5MG/325MG TAB PO ×2 (12:50→13:20)
[2017-09-22] MEDS: ONDANSETRON 4MG/2ML VIAL (J2405) IV (12:55)
[2017-09-22] MEDS: HYDROMORPHONE HCL 0.5 MG/ 0.5 ML SYRINGE (J1170 PER 1) IV ×5 (12:55→13:15)
== END 2017-09-22 14:47 | disposition home or self-care (01) ==
LOC: M SDC 08:32
DX: J32.0 Chronic maxillary sinusitis (principal); J34.2 Deviated nasal septum; J31.0 Chronic rhinitis; F43.10 Post-traumatic stress disorder, unspecified; E03.9 Hypothyroidism, unspecified; B20 Human immunodeficiency virus [HIV] disease; F41.9 Anxiety disorder, unspecified; Z88.8 Allergy status to other drugs, medicaments and biological substances; Z79.899 Other long term (current) drug therapy
CPT/HCPCS: 30520

== ENCOUNTER 2017-10-08 21:53 | Emergency (ER) | payer MEDICARE, OTHER, MEDICAID ==
[2017-10-08 22:39] LABS: BASO % 0.5 % (0.0-1.0); EOS # 0.1 10^3/uL (0.0-0.50); HEMATOCRIT 39.6 % (36.0-47.0); HEMOGLOBIN 13.6 g/dl (12.0-15.5); IMMATURE GRANULOCYTE % 0.2 % (0-3.0); LYMPH # 1.8 10^3/uL (1.5-4.5); LYMPH % 29.1 % (24.0-44.0); MEAN CORPUSCULAR HEMOGLOBIN 32.6 pg (27.0-33.0); MEAN CORPUSCULAR HGB CONC 34.3 g/dl (32.0-36.5); MONO # 0.7 10^3/uL (0.0-0.8); MONO % 11.2 % (0.0-5.0); NEUTROPHILS # 3.6 10^3/uL (1.8-7.7); PLATELET COUNT, AUTOMATED 268 10^3/uL (150-450); RED BLOOD COUNT 4.17 10^6/uL (4.00-5.40); RED CELL DISTRIBUTION WIDTH 11.9 % (11.5-14.5); WHITE BLOOD COUNT 6.3 10^3/uL (4.0-10.0)
[2017-10-08 22:49] LABS: INR 0.96; PROTHROMBIN TIME 12.9 SECONDS (12.1-14.4)
[2017-10-08 23:08] LABS: ALKALINE PHOSPHATASE 80 U/L (45-117); ALT/SGPT 25 U/L (12-78); ANION GAP 8 MEQ/L (8-16); AST/SGOT 25 U/L (7-37); BLOOD UREA NITROGEN 11 MG/DL (7-18); CALCIUM LEVEL 8.2 MG/DL (8.5-10.1); CARBON DIOXIDE LEVEL 25 MEQ/L (21-32); CHLORIDE LEVEL 108 MEQ/L (98-107); CPK CREATINE PHOSPHOKINASE 60 U/L (26-192); GLOMERULAR FILTRATION RATE > 60.0 (>58); GLUCOSE, FASTING 83 MG/DL (70-100); POTASSIUM SERUM 4.1 MEQ/L (3.5-5.1); SODIUM LEVEL 141 MEQ/L (136-145)
[2017-10-08 23:09] LABS: ALBUMIN 3.3 GM/DL (3.2-5.2); BILIRUBIN,DIRECT < 0.1 MG/DL (0.0-0.2); BILIRUBIN,TOTAL 0.2 MG/DL (0.2-1.0); CK-MB VALUE MASS < 1.0 NG/ML (<3.6); LIPASE 120 U/L (73-393); MB/CK RELATIVE INDEX 1.66 (< OR =4); TOTAL PROTEIN 6.6 GM/DL (6.4-8.2); TROPONIN I < 0.02 NG/ML (< 0.10)
[2017-10-08] MEDS: NS 1,000 ML IV (23:56)
[2017-10-08] MEDS: METOCLOPRAMIDE INJ 10MG/2ML VIAL (J2765) IV (23:56)
[2017-10-08] MEDS: ASPIRIN 81 MG CHEW TABLET PO (23:59)
[2017-10-09] MEDS: LORazepam 2 MG/ML VIAL (J2060) IV (00:55)
== END 2017-10-09 03:11 | disposition home or self-care (01) ==
LOC: M ED 21:53
DX: G51.0 Bell's palsy (principal); R07.89 Other chest pain; B20 Human immunodeficiency virus [HIV] disease; I10 Essential (primary) hypertension; G43.909 Migraine, unspecified, not intractable, without status migrainosus; J30.2 Other seasonal allergic rhinitis; Z79.899 Other long term (current) drug therapy
CPT/HCPCS: J2765

== ENCOUNTER 2017-10-12 10:03 | Outpatient (RCR) | payer MEDICARE, MEDICAID | END 2017-11-03 | LOC: M PT 10:03 | DX: Z51.89 Encounter for other specified aftercare (principal); M47.817 Spondylosis without myelopathy or radiculopathy, lumbosacral region; M79.1 Myalgia; M54.2 Cervicalgia | CPT/HCPCS: 97110 ==

== ENCOUNTER → 2017-11-30 | Outpatient (CLI) | payer MEDICARE, MEDICAID, OTHER ==
[~2017-11-30] MED LIST changes: +BOTULINUM INJ 100 UNITS (J0585) IM; -BUPIVACAINE HCL 0.25% 30 ML VIAL As Ordered; -ISOVUE-M 300 61% 15ML VIAL (Q9967) As Ordered; -LIDOCAINE 1% SDV INJ 30 ML VIAL As Ordered; +diazePAM 5 MG TAB As Ordered; +oxyCODONE 5MG TAB As Ordered
== END ==
LOC: M PAIN 11:30
DX: G43.709 Chronic migraine without aura, not intractable, without status migrainosus (principal); E03.9 Hypothyroidism, unspecified; F32.9 Major depressive disorder, single episode, unspecified; F41.9 Anxiety disorder, unspecified; J30.9 Allergic rhinitis, unspecified; Z21 Asymptomatic human immunodeficiency virus [HIV] infection status; Z79.899 Other long term (current) drug therapy; Z88.8 Allergy status to other drugs, medicaments and biological substances; Z91.013 Allergy to seafood
CPT/HCPCS: J0585

== ENCOUNTER 2017-12-17 23:55 | Emergency (ER) | payer OTHER, MEDICARE, MEDICAID | END 2017-12-18 00:42 | disposition left against medical advice (07) | LOC: M ED 23:55 | DX: Z53.29 Procedure and treatment not carried out because of patient's decision for other reasons (principal) ==

== ENCOUNTER → 2018-01-12 | Outpatient (REF) | payer OTHER, MEDICAID ==
[2018-01-12 16:03] LABS: APPEARANCE, URINE HAZY (CLEAR); BACTERIA, URINE AUTO NEGATIVE (NEGATIVE); BILIRUBIN, URINE AUTO NEGATIVE (NEGATIVE); BLOOD, URINE BLOOD NEGATIVE (NEGATIVE); COLOR, URINE YELLOW (YELLOW); GLUCOSE, URINE (UA) AUTO NEGATIVE (NEGATIVE); KETONE, URINE AUTO NEGATIVE (NEGATIVE); LEUKOCYTE ESTERASE, URINE AUTO 2+ (NEGATIVE); MUCUS, URINE SMALL (NEGATIVE); NITRITE, URINE AUTO NEGATIVE (NEGATIVE); PROTEIN, URINE AUTO NEGATIVE (NEGATIVE); RBC, URINE AUTO 3 /HPF (0-3); SPECIFIC GRAVITY URINE AUTO 1.025 (1.002-1.035); SQUAMOUS EPITHELIAL CELL UR AU 2 /HPF (0-6); UROBILINOGEN, URINE AUTO 0.2 mg/dL (0.0-2.0); WBC, URINE AUTO 2 /HPF (0-3)
[2018-01-12 16:33] LABS: ALBUMIN 3.9 GM/DL (3.2-5.2); ALBUMIN/GLOBULIN RATIO 1.22 (1.00-1.93); ALKALINE PHOSPHATASE 89 U/L (45-117); ALT/SGPT 26 U/L (12-78); ANION GAP 7 MEQ/L (8-16); AST/SGOT 17 U/L (7-37); BILIRUBIN,TOTAL 0.2 MG/DL (0.2-1.0); BLOOD UREA NITROGEN 8 MG/DL (7-18); CALCIUM LEVEL 8.8 MG/DL (8.5-10.1); CARBON DIOXIDE LEVEL 26 MEQ/L (21-32); CHLORIDE LEVEL 107 MEQ/L (98-107); CREATININE FOR GFR 0.68 MG/DL (0.55-1.30); FREE T3 3.4 PG/ML (2.2-4.0); FREE T4 0.97 NG/DL (0.76-1.46); GLOMERULAR FILTRATION RATE > 60.0 (>58); GLUCOSE, FASTING 93 MG/DL (70-100); POTASSIUM SERUM 4.9 MEQ/L (3.5-5.1); SODIUM LEVEL 140 MEQ/L (136-145); THYROID STIMULATING HORMONE 0.853 uIU/ML (0.358-3.740); TOTAL PROTEIN 7.1 GM/DL (6.4-8.2)
[2018-01-12 17:35] LABS: CHLAMYDIA DNA AMPLIFICATION NEGATIVE (NEGATIVE); GC DNA AMPLIFICATION NEGATIVE (NEGATIVE)
[2018-01-16 00:07] LABS: % CD8 Pos Lymph 26.5 % (12.0-35.5); %CD4 Pos Lymphs 51.4 % (30.8-58.5); ABS Eosinophils 0.1 x10E3/uL (0.0-0.4); ABS Lymphs 2.2 x10E3/uL (0.7-3.1); ABS Monocytes 0.4 x10E3/uL (0.1-0.9); ABS Neutophils 4.5 x10E3/uL (1.4-7.0); Abs CD4 Helper 1131 /uL (359-1519); Abs CD8 Suppres 583 /uL (109-897); CD4/CD8 Ratio 1.94 (0.92-3.72); Eosinophils 1 % (Not Estab.); HCT 45.1 % (34.0-46.6); HGB 14.8 g/dL (11.1-15.9); HIV-1 RNA PCR QUANT 2 LC550285 <20 copies/mL (.); Immature Grans 0 % (Not Estab.); Lymphocytes 31 % (Not Estab.); MCH 31.4 pg (26.6-33.0); MCHC 32.8 g/dL (31.5-35.7); MCV 96 fL (79-97); Monocytes 5 % (Not Estab.); Neutrophils 63 % (Not Estab.); Platelets 263 x10E3/uL (150-379); RBC 4.71 x10E6/uL (3.77-5.28); RDW 14.4 % (12.3-15.4); WBC 7.2 x10E3/uL (3.4-10.8)
== END ==
LOC: M SFHCPLAZ 13:05
DX: E03.9 Hypothyroidism, unspecified (principal); B20 Human immunodeficiency virus [HIV] disease

== ENCOUNTER → 2018-02-09 | Outpatient (REF) | payer OTHER, MEDICAID, MEDICARE | LOC: M SFHCPLAZ 13:11 | DX: J32.0 Chronic maxillary sinusitis (principal) | CPT/HCPCS: 87070 ==

== ENCOUNTER → 2018-03-08 | Outpatient (REF) | payer OTHER, MEDICAID | LOC: M SFHCPLAZ 11:38 | DX: J32.0 Chronic maxillary sinusitis (principal) ==

== ENCOUNTER 2018-03-12 21:18 | Emergency (ER) | payer MEDICARE, MEDICAID ==
[~2018-03-12] VITALS: Ht 167.6 cm; Wt 109.1 kg
[~2018-03-12 21:18] MED LIST changes: +/DULO30CA; +/FENT25PA TD; +/FENT50PA; +/LAMO10TA; +/MOXI40TA OR; +/ONDA4TA PO; +/PREG50CA PO; +ABIL10TA OR; +ACET20VL PO; +ADDE20CA3 PO; +ADDE30CA3 PO; +ADVAIR; +ADVAIR OR; +AMBI10TA PO; +ASPI1TAB15 PO; +ASPI81CH PO; +ATEN50TA2 PO; +ATIV1TAB2; +ATIV1TAB2 OR; +ATIV1TAB7 PO; +ATRIPLA; -BOTULINUM INJ 100 UNITS (J0585) IM; +BUPR15TA; +BUPR15TA OR; +BUPRENORPHINE; +BUPRENORPHINE TD; +BUTA1CAP PO; +BUTR10DI2 TOP; +BUTR1DIS TD; +CALCTAB22 OR; +CEPH500T PO; +CETI10TA; +CETI10TA OR; +CHROMIUM PICOLINATE; +CLEO300C2 PO; +CLON0.5T8 PO; +COMBIVIR PO; +COMPAZINE; +COQ1200C2 PO; +CYCL10TA PO; +CYTO5TAB8 PO; +DIAZ5TAB PO; +DICL50TA2 PO; +DIFL150T PO; +DIFL200T PO; +DIPHENHIST; +DIPHENHIST OR; +DOXY-350 PO; +FIORCAP7 PO; +FIORICET; +FIORICET OR; +FIORTAB PO; +FLEXERIL; +GABA PO; +GABA-1171 PO; +GENV1TAB PO; +GINS100C2 PO; +GINSING OR; +IBUP200T2 PO; +IBUP600T OR; +IMIT4KIT SC; +IMIT50TA PO; +IMIT6INJ; +IMIT6INJ IJ; +IMIT6INJ SC; +ISENTRESS PO; +KEFL500C17 PO; +LASI20TA; +LASI20TA OR; +LASI20TA PO; +LEVA750T7 PO; +LEVO175T2 PO; +LINZ290C PO; +LIOT5TAB PO; +LITH150C PO; +LORA1TAB PO; +LORA1TAB12 PO; +MAGN500T5 PO; +MELA3TAB49 PO; +MELA5TAB13 PO; +MELOPOW; +MELOPOW OR; +METR-201; +MINO100T PO; +MIRE1IUD IU; +MORP10SU PR; +MS C15TA5 OR; +MS C200T PO; +MULTCAP PO; +N-ACCAP PO; +NEUR600T PO; +OLOP0.2S OP; +OXYC-517 PO; +PAXI20TA OR; +PRED20TA PO; +PREG50CA PO; +PRIL20CA PO; +PROBCAP4 PO; +PROCHLORPERAZINE; +PROCHLORPERAZINE OR; +PROTPAK PO; +PROV90AE; +PROV90AE IN; +Prochlorperazine PO; +RHINOCORT; +RIBO400T PO; +ROZEREM; +ROZEREM OR; +SAVELLA; +SAVELLA OR; +SERT-138; +SERT50TA PO; +SILVER PO; +SING10TA31; +SING10TA31 OR; +SING10TA32 PO; +SING4GRA PO; +SOMA350T; +SOMA350T PO; +STRITAB2 PO; +SUDA30TA; +SUDA30TA OR; +SUDA30TA PO; +SUDA30TA8 PO; +SULFAMETHOXAZOLE-TMP; +SUMA125TA; +SYNT150T; +SYNT150T OR; +TENO1TAB PO; +TOPA200T PO; +TOPI200T; +TOPI200T OR; +TRAM50TA2; +TRAM50TA2 PO; +TRAZ-160 PO; +ULTR50TA PO; +VALA500T5 PO; +VICO5TAB; +VICO5TAB OR; +VICODINES TAB OR; +VOLT1GEL EX; +WELL100T2; +XANA0.5T PO; +ZANA4CAP; +ZANA4CAP OR; +ZINC220T2; +ZOFR4TAB14 PO; +ZOLO100T; +ZOLO50TA PO; +ZYRT10CA PO; +[UNRECOGNIZED DRUG - CODE] PO; +[UNRECOGNIZED DRUG - OTHER]; +[UNRECOGNIZED DRUG - OTHER]; +[UNRECOGNIZED DRUG - OTHER] OR; +[UNRECOGNIZED DRUG - OTHER] OR; +[UNRECOGNIZED DRUG - OTHER] PO; +[UNRECOGNIZED DRUG - OTHER] PO; +ambien PO; -diazePAM 5 MG TAB As Ordered; -oxyCODONE 5MG TAB As Ordered; +oxycodone PO; +rozerem PO; +topamax PO
[2018-03-12] MEDS ORDERED: PERCOCET 5MG/325MG TAB PO ONE (21:45)
[2018-03-12] MEDS ORDERED: AUGMENTIN 875 MG TAB PO ONE (21:45)
[2018-03-12] MEDS ORDERED: ADACEL/BOOSTRIX VACCINE (DIPHTH/PERTUSS/ACELL/TETANUS)0.5ML SYR (90715) IM ONE (22:00)
[2018-03-12] MEDS ORDERED: OXYC1TAB23 PO (22:54)
[2018-03-12] MEDS ORDERED: AUGM875T28 PO (22:54)
[2018-03-12] MEDS ORDERED: BACI1CAP PO (22:54)
[2018-03-12] MEDS ORDERED: OXYCODONE/APAP 5MG/325MG(BULK FOR ED) 1 TABLET PO ONE (23:00)
[2018-03-12] MEDS ORDERED: KETOROLAC 60 MG/2 ML VIAL (J1885) IM ONE (23:15)
[2018-03-13 00:05] VITALS: BP 106/64
--- NOTE | 2018-03-13 09:45 | REP ---
RIGHT 1ST DIGIT: Four views of the right 1st digit are performed. There is a fracture of the tuft of the distal phalanx. No other fracture or dislocation is seen. There appears to be a soft tissue disruption adjacent to the tuft fracture. Electronically Signed by Luther Ying MD 03/13/2018 10:25 A
== END 2018-03-13 00:10 | disposition home or self-care (01) ==
LOC: M ED 21:18
DX: S62.501B Fracture of unspecified phalanx of right thumb, initial encounter for open fracture (principal); E03.9 Hypothyroidism, unspecified; W54.0XXA Bitten by dog, initial encounter; Y92.009 Unspecified place in unspecified non-institutional (private) residence as the place of occurrence of the external cause
CPT/HCPCS: 73140; 90715; 96372; 99283; J1885

== ENCOUNTER → 2018-06-19 | Outpatient (CLI) | payer MEDICARE, OTHER, MEDICAID ==
[~2018-06-19] MED LIST changes: +AUGM875T28 PO; +BACI1CAP PO; +OXYC1TAB23 PO
[2018-06-19 09:45] LABS: FREE T4 0.51 NG/DL (0.76-1.46); THYROID STIMULATING HORMONE 10.4 uIU/ML (0.358-3.740)
[2018-06-21 10:07] LABS: TOTAL T3 74.4 NG/DL (60.0-181.0)
== END ==
LOC: M LAB 08:37
PROVIDERS: ATTEND Internal Medicine Endocrinology, Diabetes & Metabolism
DX: E03.9 Hypothyroidism, unspecified (principal)

== ENCOUNTER 2018-07-01 19:34 | Emergency (ER) | payer MEDICARE, MEDICAID ==
[~2018-07-01] VITALS: Ht 167.6 cm; Wt 116.4 kg
[~2018-07-01 19:34] MED LIST changes: -/DULO30CA; -/FENT25PA TD; -/FENT50PA; -/LAMO10TA; -/MOXI40TA OR; -/ONDA4TA PO; -/PREG50CA PO; -ASPI81CH PO; +ASPI81CH49 PO; +AVEL1TAB2 OR; +CYMB1CAP5; +FENT1DIS14 TD; +FENT1DIS15; +LAMI1TAB7; +LYRI50CA PO; -METR-201; +METR-265; +ONDA-1 PO; +SERT-141 PO; -SERT50TA PO
[2018-07-01] MEDS ORDERED: TETRACAINE 0.5% OPHTH SOLN 4ML OU ONE (22:00)
[2018-07-01] MEDS ORDERED: FLUORESCEIN OPHTH 1 MG STRIP OU ONE (22:00)
[2018-07-01 22:20] LABS: BASO % 0.7 % (0.0-1.0); EOS # 0.1 10^3/uL (0.0-0.50); EOS % 0.8 % (0.0-3.0); HEMATOCRIT 42.9 % (36.0-47.0); HEMOGLOBIN 14.5 g/dl (12.0-15.5); LYMPH # 2.3 10^3/uL (1.5-4.5); LYMPH % 38.4 % (24.0-44.0); MEAN CORPUSCULAR HEMOGLOBIN 32.2 pg (27.0-33.0); MEAN CORPUSCULAR HGB CONC 33.8 g/dl (32.0-36.5); MEAN CORPUSCULAR VOLUME 95.3 fl (80.0-96.0); MONO # 0.7 10^3/uL (0.0-0.8); MONO % 10.9 % (0.0-5.0); NEUTROPHILS # 2.9 10^3/uL (1.8-7.7); PLATELET COUNT, AUTOMATED 245 10^3/uL (150-450); WHITE BLOOD COUNT 5.9 10^3/uL (4.0-10.0)
[2018-07-01 22:37] LABS: HCG, SERUM QUALITATIVE NEGATIVE (NEGATIVE)
[2018-07-01 22:53] LABS: BLOOD UREA NITROGEN 11 MG/DL (7-18); CALCIUM LEVEL 8.3 MG/DL (8.5-10.1); CARBON DIOXIDE LEVEL 27 MEQ/L (21-32); CHLORIDE LEVEL 108 MEQ/L (98-107); CK-MB VALUE MASS < 1.0 NG/ML (<3.6); CPK CREATINE PHOSPHOKINASE 71 U/L (26-192); CREATININE FOR GFR 0.67 MG/DL (0.55-1.30); FREE T4 1.05 NG/DL (0.76-1.46); GLOMERULAR FILTRATION RATE > 60.0 (>58); GLUCOSE, FASTING 95 MG/DL (70-100); MB/CK RELATIVE INDEX 1.41 (< OR =4); POTASSIUM SERUM 4.1 MEQ/L (3.5-5.1); SODIUM LEVEL 141 MEQ/L (136-145); THYROID STIMULATING HORMONE 0.955 uIU/ML (0.358-3.740); TROPONIN I < 0.02 NG/ML (< 0.10)
--- NOTE | 2018-07-01 23:39 | REPVR ---
EXAM: CT Head Without Contrast EXAM DATE/TIME: 07/01/2018 11:21 PM CLINICAL HISTORY: 43 years old, female; Pain; Headache; Other: Ocular; Additional info: Ocular headache/pressure TECHNIQUE: Imaging protocol: Axial computed tomography images of the head/brain without contrast. Radiation optimization: All CT scans at this facility use at least one of these dose optimization techniques: automated exposure control; mA and/or kV adjustment per patient size (includes targeted exams where dose is matched to clinical indication); or iterative reconstruction. COMPARISON: CT Head without contrast 10/08/2017 10:39 PM FINDINGS: Brain: No CT evidence of acute intracranial hemorrhage or acute territorial infarction. No significant mass effect or midline shift. Basal cisterns patent. Ventricles: Normal in size and configuration. Bones/joints: No acute osseous abnormality. Sinuses: Minimal ethmoid mucosal thickening. Mastoid air cells: Grossly unremarkable. Soft tissues: Grossly unremarkable. IMPRESSION: 1. No CT evidence of acute intracranial pathology. 2. Additional findings, as above. Electronically signed by: Juan Carrillo On 07/01/2018 23:39:27 PM
[2018-07-02 00:55] VITALS: BP 133/59
--- NOTE | 2018-07-02 17:01 | ECGEPIP ---
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
== END 2018-07-02 00:57 | disposition home or self-care (01) ==
LOC: M ED 19:34
DX: H57.89 Other specified disorders of eye and adnexa (principal); H57.13 Ocular pain, bilateral; F41.9 Anxiety disorder, unspecified; R07.89 Other chest pain; E03.9 Hypothyroidism, unspecified; E78.00 Pure hypercholesterolemia, unspecified; Z86.69 Personal history of other diseases of the nervous system and sense organs; Z88.8 Allergy status to other drugs, medicaments and biological substances; Z79.899 Other long term (current) drug therapy; Z79.890 Hormone replacement therapy

== ENCOUNTER 2018-08-17 15:52 | Emergency (ER) | payer MEDICARE, MEDICAID ==
[~2018-08-17] VITALS: Ht 165.1 cm; Wt 113.6 kg
[2018-08-17] MEDS ORDERED: methylPREDNISolone INJ 125 MG/2 ML VIAL (J2930) IV ONE (17:00)
[2018-08-17] MEDS ORDERED: NS 500 ML IV ONE (17:00)
[2018-08-17] MEDS: ACETAMINOPHEN 325 MG/10.15 ML UDC PO ONE ×2 (17:20→17:22)
[2018-08-17] MEDS ORDERED: diphenhydrAMINE INJ 50MG/ML VIAL (J1200) IV STA (18:21)
[2018-08-17] MEDS ORDERED: KETOROLAC 30 MG/ML VIAL (J1885) IV ONE (18:30)
[2018-08-17 18:31] VITALS: BP_DIAS 55
[2018-08-17] MEDS ORDERED: PRED20TA PO (18:53)
[2018-08-17 19:12] VITALS: BP_SYST 110
== END 2018-08-17 19:15 | disposition home or self-care (01) ==
LOC: M ED 15:52
DX: K12.2 Cellulitis and abscess of mouth (principal); E07.9 Disorder of thyroid, unspecified; G43.909 Migraine, unspecified, not intractable, without status migrainosus; Z21 Asymptomatic human immunodeficiency virus [HIV] infection status; Z79.899 Other long term (current) drug therapy; Z79.890 Hormone replacement therapy; Z88.8 Allergy status to other drugs, medicaments and biological substances
CPT/HCPCS: 87880; 96361; 96374; 96375; 99284; J1885; J2930

== ENCOUNTER → 2018-10-14 | Outpatient (REF) | payer MEDICARE, MEDICAID ==
[~2018-10-14] MED LIST changes: -TRAZ-160 PO; +TRAZ-252 PO
[2018-10-14 12:52] LABS: APPEARANCE, URINE HAZY (CLEAR); BACTERIA, URINE AUTO NEGATIVE (NEGATIVE); BILIRUBIN, URINE AUTO 1+ (NEGATIVE); BLOOD, URINE BLOOD NEGATIVE (NEGATIVE); COLOR, URINE AMBER (YELLOW); GLUCOSE, URINE (UA) AUTO NEGATIVE (NEGATIVE); KETONE, URINE AUTO TRACE mg/dL (NEGATIVE); LEUKOCYTE ESTERASE, URINE AUTO 1+ (NEGATIVE); MUCUS, URINE LARGE (NEGATIVE); NITRITE, URINE AUTO NEGATIVE (NEGATIVE); PROTEIN, URINE AUTO 1+ mg/dL (NEGATIVE); RBC, URINE AUTO 4 /HPF (0-3); SPECIFIC GRAVITY URINE AUTO 1.035 (1.002-1.035); SQUAMOUS EPITHELIAL CELL UR AU 7 /HPF (0-6); WBC, URINE AUTO 5 /HPF (0-3)
[2018-10-14 12:52] LABS: ALT/SGPT 31 U/L (12-78); BILIRUBIN,TOTAL 0.3 MG/DL (0.2-1.0); BLOOD UREA NITROGEN 7 MG/DL (7-18); C REACTIVE PROTEIN QUANTITATIV 0.98 MG/DL (0.00-0.30); CALCIUM LEVEL 9.4 MG/DL (8.5-10.1); CARBON DIOXIDE LEVEL 26 MEQ/L (21-32); CHLORIDE LEVEL 106 MEQ/L (98-107); CREATININE FOR GFR 0.92 MG/DL (0.55-1.30); FREE T3 2.6 PG/ML (2.2-4.0); FREE T4 1.08 NG/DL (0.76-1.46); GLOMERULAR FILTRATION RATE > 60.0 (>58); GLUCOSE, FASTING 90 MG/DL (70-100); POTASSIUM SERUM 4.4 MEQ/L (3.5-5.1); RHEUMATOID FACTOR QUANT < 10.0 IU/ML (<15.0); SODIUM LEVEL 139 MEQ/L (136-145); THYROID STIMULATING HORMONE 0.404 uIU/ML (0.358-3.740); TOTAL PROTEIN 7.5 GM/DL (6.4-8.2)
[2018-10-14 14:04] LABS: CHLAMYDIA DNA AMPLIFICATION NEGATIVE (NEGATIVE); GC DNA AMPLIFICATION NEGATIVE (NEGATIVE)
[2018-10-15 11:44] LABS: HEPATITIS C VIRUS ABY INDEX 0.1 INDEX (<0.8)
[2018-10-19 14:07] LABS: % CD8 Pos Lymph 25.9 % (12.0-35.5); %CD4 Pos Lymphs 47.2 % (30.8-58.5); ABS Lymphs 1.4 x10E3/uL (0.7-3.1); ABS Monocytes 0.5 x10E3/uL (0.1-0.9); ABS Neutophils 4.8 x10E3/uL (1.4-7.0); ANA (HEP2) Negative (.); Abs CD4 Helper 661 /uL (359-1519); Abs CD8 Suppres 363 /uL (109-897); CD4/CD8 Ratio 1.82 (0.92-3.72); CYCLIC CITRULLINATED PEPTIDE 5 units (0-19); Eosinophils 0 % (Not Estab.); HCT 45.6 % (34.0-46.6); HGB 15.2 g/dL (11.1-15.9); HIV-1 RNA PCR QUANT 2 LC550285 <20 copies/mL (.); HLA-B27 Negative (.); Immature Grans 0 % (Not Estab.); Lymphocytes 21 % (Not Estab.); MCH 30.8 pg (26.6-33.0); MCHC 33.3 g/dL (31.5-35.7); MCV 92 fL (79-97); Monocytes 8 % (Not Estab.); Neutrophils 71 % (Not Estab.); Platelets 304 x10E3/uL (150-450); RBC 4.94 x10E6/uL (3.77-5.28); WBC 6.8 x10E3/uL (3.4-10.8)
== END ==
LOC: M SFHCPLAZ 10:08
PROVIDERS: ATTEND Internal Medicine Infectious Disease
DX: B20 Human immunodeficiency virus [HIV] disease (principal); E03.9 Hypothyroidism, unspecified; N76.0 Acute vaginitis; L40.9 Psoriasis, unspecified
CPT/HCPCS: 36415; 80053; 81001; 81374; 84439; 84443; 84481; 85652; 86038; 86140; 86200; 86360; 86431; 86480; 86803; 87536; 87661; G0463

== ENCOUNTER → 2019-02-22 | Outpatient (REF) | payer MEDICARE, MEDICAID ==
[~2019-02-22] MED LIST changes: -LIOT5TAB PO; +LIOT5TAB6 PO
[2019-02-22 19:13] LABS: BASO # 0.1 10^3/uL (0.0-0.2); BASO % 0.9 % (0.0-1.0); EOS # 0.1 10^3/uL (0.0-0.5); EOS % 1.2 % (0.0-3.0); HEMATOCRIT 46.8 % (36.0-47.0); HEMOGLOBIN 14.9 g/dl (12.0-15.5); LYMPH # 1.6 10^3/uL (1.5-5.0); LYMPH % 23.6 % (24.0-44.0); MEAN CORPUSCULAR HEMOGLOBIN 30.2 pg (27.0-33.0); MEAN CORPUSCULAR HGB CONC 31.8 g/dl (32.0-36.5); MEAN CORPUSCULAR VOLUME 94.7 fl (80.0-96.0); MONO # 0.4 10^3/uL (0.0-0.8); MONO % 6.4 % (0.0-5.0); NEUTROPHILS # 4.5 10^3/uL (1.5-8.5); NEUTROPHILS % 67.7 % (36.0-66.0); PLATELET COUNT, AUTOMATED 350 10^3/uL (150-450); RED BLOOD COUNT 4.94 10^6/uL (4.00-5.40); WHITE BLOOD COUNT 6.6 10^3/uL (4.0-10.0)
[2019-02-22 19:40] LABS: ALBUMIN 3.8 GM/DL (3.2-5.2); ALT/SGPT 29 U/L (12-78); BILIRUBIN,TOTAL 0.2 MG/DL (0.2-1.0); BLOOD UREA NITROGEN 9 MG/DL (7-18); CALCIUM LEVEL 8.8 MG/DL (8.5-10.1); CARBON DIOXIDE LEVEL 26 MEQ/L (21-32); CHLORIDE LEVEL 106 MEQ/L (98-107); CHOLESTEROL LEVEL 288 MG/DL (<200); CREATININE FOR GFR 0.78 MG/DL (0.55-1.30); FREE T4 0.66 NG/DL (0.76-1.46); GLOMERULAR FILTRATION RATE > 60.0 (>58); GLUCOSE, FASTING 86 MG/DL (70-100); HDL CHOLESTEROL 46 MG/DL (>40); LDL CHOLESTEROL 167 MG/DL (<100); NON-HDL-C 242 MG/DL; POTASSIUM SERUM 3.9 MEQ/L (3.5-5.1); SODIUM LEVEL 140 MEQ/L (136-145); THYROID STIMULATING HORMONE 0.515 uIU/ML (0.358-3.740); TOTAL PROTEIN 7.4 GM/DL (6.4-8.2); TRIGLYCERIDES LEVEL 374 MG/DL (<150)
[2019-02-22 19:41] LABS: VITAMIN B12 LEVEL 404 PG/ML (247-911)
[2019-02-22 19:43] LABS: HEMOGLOBIN A1c 5.1 %
== END ==
LOC: M LAB REF 18:34
PROVIDERS: ATTEND Psychiatry & Neurology Child & Adolescent Psychiatry
DX: F41.1 Generalized anxiety disorder (principal); F43.10 Post-traumatic stress disorder, unspecified; Z79.899 Other long term (current) drug therapy
CPT/HCPCS: 80053; 80061; 82306; 82607; 83036; 84439; 84443; 85025; G0480

== ENCOUNTER → 2019-05-05 | Outpatient (REF) | payer MEDICARE, MEDICAID ==
[~2019-05-05] MED LIST changes: +CLON0.5T2 PO; -CLON0.5T8 PO; -LORA1TAB12 PO; +LORA1TAB4 PO
[2019-05-05 16:21] LABS: ALBUMIN 3.7 GM/DL (3.2-5.2); ALT/SGPT 27 U/L (12-78); BILIRUBIN,TOTAL 0.2 MG/DL (0.2-1.0); BLOOD UREA NITROGEN 9 MG/DL (7-18); C REACTIVE PROTEIN QUANTITATIV < 0.30 MG/DL (0.00-0.30); CALCIUM LEVEL 8.6 MG/DL (8.5-10.1); CARBON DIOXIDE LEVEL 28 MEQ/L (21-32); CHLORIDE LEVEL 107 MEQ/L (98-107); CREATININE FOR GFR 0.65 MG/DL (0.55-1.30); FREE T4 1.14 NG/DL (0.76-1.46); GLOMERULAR FILTRATION RATE > 60.0 (>58); GLUCOSE, FASTING 89 MG/DL (70-100); POTASSIUM SERUM 4.4 MEQ/L (3.5-5.1); RHEUMATOID FACTOR QUANT < 10.0 IU/ML (<15.0); SODIUM LEVEL 139 MEQ/L (136-145); THYROID STIMULATING HORMONE 0.012 uIU/ML (0.358-3.740); TOTAL PROTEIN 6.9 GM/DL (6.4-8.2)
[2019-05-06 12:04] LABS: TOTAL T3 113.1 NG/DL (60.0-181.0)
[2019-05-11 00:08] LABS: % CD8 Pos Lymph 23.4 % (12.0-35.5); %CD4 Pos Lymphs 50.1 % (30.8-58.5); ABS Eosinophils 0.1 x10E3/uL (0.0-0.4); ABS Lymphs 1.7 x10E3/uL (0.7-3.1); ABS Monocytes 0.4 x10E3/uL (0.1-0.9); ANA (HEP2) Negative (.); Abs CD4 Helper 852 /uL (359-1519); Abs CD8 Suppres 398 /uL (109-897); CD4/CD8 Ratio 2.14 (0.92-3.72); CYCLIC CITRULLINATED PEPTIDE 8 units (0-19); Eosinophils 1 % (Not Estab.); HCT 46.2 % (34.0-46.6); HGB 15.3 g/dL (11.1-15.9); HIV-1 RNA PCR QUANT 2 LC550285 <20 copies/mL (.); HLA-B27 Negative (.); Immature Grans 0 % (Not Estab.); Lymphocytes 23 % (Not Estab.); MCHC 33.1 g/dL (31.5-35.7); MCV 94 fL (79-97); Monocytes 5 % (Not Estab.); Neutrophils 71 % (Not Estab.); Platelets 310 x10E3/uL (150-450); RBC 4.94 x10E6/uL (3.77-5.28); RDW 14.2 % (11.7-15.4); SSA SJOGRENS A <0.2 AI (0.0-0.9); SSB SJOGRENS B <0.2 AI (0.0-0.9); WBC 7.1 x10E3/uL (3.4-10.8)
== END ==
LOC: M SFHCPLAZ 12:57
PROVIDERS: ATTEND Internal Medicine Infectious Disease
DX: M25.50 Pain in unspecified joint (principal); B20 Human immunodeficiency virus [HIV] disease; E03.9 Hypothyroidism, unspecified
CPT/HCPCS: 36415; 80053; 81374; 84439; 84443; 84480; 85652; 86038; 86140; 86200; 86235; 86360; 86431; 87536; G0463

== ENCOUNTER → 2019-05-12 | Outpatient (CLI) | payer MEDICARE, MEDICAID ==
--- NOTE | 2019-05-12 17:31 | REPVR ---
PROCEDURE INFORMATION: Exam: CT Maxillofacial Without Contrast Exam date and time: 05/12/2019 5:08 PM Age: 44 years old Clinical indication: Sinusitis; Type not specified; Additional info: Maxillary sinusitis TECHNIQUE: Imaging protocol: Computed tomography images of the face without contrast. Axial and coronal reformatted images were created and reviewed. Radiation optimization: All CT scans at this facility use at least one of these dose optimization techniques: automated exposure control; mA and/or kV adjustment per patient size (includes targeted exams where dose is matched to clinical indication); or iterative reconstruction. COMPARISON: CT Maxilofacial w/out contrast 05/14/2017 3:44 PM FINDINGS: Orbits: No acute intraorbital abnormality. Globes intact. Sinuses: Evidence of prior FESS. Mild ethmoid mucosal thickening, similar to prior. Diminutive, completely opacified right maxillary sinus with associated concave ibarra, also similar to prior. No air-fluid levels. Bones/joints: No acute fracture. Soft tissues: Unremarkable. IMPRESSION: No significant interval change. Electronically signed by: Juan Carrillo On 05/12/2019 17:30:53 PM
--- NOTE | 2019-05-12 21:47 | REP ---
Clinical: Increasing lumbar pain. Comparison: 03/19/2016 . Technique: AP, lateral, and coned-down views. Findings: Alignment and lordosis is maintained. The vertebral bodies including transverse process and spinous processes are intact and without acute fracture / compression injury or subluxation. Hypertrophic facet changes involving L3-L5 with minimal endplate sclerosis. Impression: Mild degenerative changes suggested Electronically Signed by Nam Fernandez MD 05/12/2019 09:39 P
== END ==
LOC: M RAD 16:32
PROVIDERS: ATTEND Internal Medicine Infectious Disease
DX: J32.0 Chronic maxillary sinusitis (principal); M25.50 Pain in unspecified joint; M47.817 Spondylosis without myelopathy or radiculopathy, lumbosacral region

== ENCOUNTER → 2019-06-02 | Outpatient (REF) | payer MEDICARE, MEDICAID | LOC: M LAB REF 13:35 | PROVIDERS: ATTEND Physician Assistant Medical | DX: J32.0 Chronic maxillary sinusitis (principal) ==

== ENCOUNTER → 2019-08-10 | Outpatient (CLI) | payer MEDICARE, MEDICAID ==
[~2019-08-10] MED LIST changes: +CYCL-707 PO; -CYCL10TA PO
--- NOTE | 2019-08-11 08:11 | REPMRS ---
Patient History Family history of breast cancer, ovarian cancer, and pancreatic cancer in mother. Digital Woman Screen Mammo: August 10, 2019 - Exam #: [id number] Bilateral CC and MLO view(s) were taken. Technologist: Maribel Gann, Technologist FINDINGS: There are scattered fibroglandular densities. There is no evidence of dominant mass, architectural distortion, or grouped microcalcification typical of malignancy. 3-D tomosynthesis shows no additional findings. Assessment: BI-RADS/ACR category 1 mammogram. Negative Mammogram. Recommendation Breast MRI of both breasts in 6 months. Routine screening mammogram of both breasts in 1 year (for women over age 40). This patient's Lifetime Breast Cancer RIsk is estimated at 22.9 %. Annual screening Breast MRI scanniing is recommended for patient's whose lifetime risk assessment is over 20%. This mammogram was interpreted with the aid of an FDA-approved computer-aided dectection system. Electronically Signed By: Isidro Alejo MD 08/11/19 0820
== END ==
LOC: M WHC 13:40
PROVIDERS: ATTEND Nurse Practitioner Family
DX: Z01.419 Encounter for gynecological examination (general) (routine) without abnormal findings (principal); Z12.31 Encounter for screening mammogram for malignant neoplasm of breast; Z80.3 Family history of malignant neoplasm of breast; Z80.41 Family history of malignant neoplasm of ovary; Z80.0 Family history of malignant neoplasm of digestive organs
CPT/HCPCS: 77063; 77067; 87255; 87624; 87661; G0123; G0463

== ENCOUNTER → 2019-08-10 | Outpatient (REF) | payer MEDICARE, MEDICAID ==
[2019-08-10 20:11] LABS: CHLAMYDIA DNA AMPLIFICATION NEGATIVE (NEGATIVE); GC DNA AMPLIFICATION NEGATIVE (NEGATIVE)
== END ==
LOC: M SFHCWAGY 17:08
PROVIDERS: ATTEND Nurse Practitioner Family
DX: Z12.4 Encounter for screening for malignant neoplasm of cervix (principal); Z11.3 Encounter for screening for infections with a predominantly sexual mode of transmission; N90.89 Other specified noninflammatory disorders of vulva and perineum
CPT/HCPCS: 87255; 87624; 87661; G0123

== ENCOUNTER → 2019-11-07 | Outpatient (REF) | payer MEDICARE, MEDICAID ==
[~2019-11-07] MED LIST changes: +ASPI-546 PO; -ASPI1TAB15 PO; +VITA50005 PO
[2019-12-24 10:47] LABS: CHLAMYDIA DNA AMPLIFICATION NEGATIVE (NEGATIVE); GC DNA AMPLIFICATION NEGATIVE (NEGATIVE)
== END ==
LOC: M SFHCPLAZ 08:07 → M LAB REF 08:07
PROVIDERS: ATTEND Nurse Practitioner Women's Health
DX: Z11.3 Encounter for screening for infections with a predominantly sexual mode of transmission (principal); Z72.51 High risk heterosexual behavior
CPT/HCPCS: 36415; 86780; 87491; 87591; G0463

== ENCOUNTER 2019-12-30 22:38 | Emergency (ER) | payer MEDICARE, MEDICAID ==
[~2019-12-30] VITALS: Ht 165.1 cm; Wt 115.5 kg
[~2019-12-30 22:38] MED LIST changes: -VITA50005 PO
[2019-12-30] MEDS ORDERED: VITA50005 PO (22:49)
[2019-12-31] MEDS ORDERED: KETOROLAC 30 MG/ML 1ML VIAL IV ONE
[2019-12-31] MEDS ORDERED: ONDANSETRON 4MG/2ML VIAL IV ONE
[2019-12-31] MEDS ORDERED: NS 1,000 ML IV ONE
[2019-12-31] MEDS ORDERED: METAL LOCK LOOP XX ONE (00:14)
[2019-12-31 00:39] LABS: BASO # 0.1 10^3/uL (0.0-0.2); BASO % 0.6 % (0.0-1.0); EOS # 0.1 10^3/uL (0.0-0.5); EOS % 1.1 % (0.0-3.0); HEMATOCRIT 47.1 % (36.0-47.0); HEMOGLOBIN 15.2 g/dl (12.0-15.5); LYMPH # 2.9 10^3/uL (1.5-5.0); LYMPH % 36.9 % (24.0-44.0); MEAN CORPUSCULAR HEMOGLOBIN 28.6 pg (27.0-33.0); MEAN CORPUSCULAR HGB CONC 32.3 g/dl (32.0-36.5); MEAN CORPUSCULAR VOLUME 88.5 fl (80.0-96.0); MONO # 0.6 10^3/uL (0.0-0.8); NEUTROPHILS # 4.3 10^3/uL (1.5-8.5); PLATELET COUNT, AUTOMATED 305 10^3/uL (150-450); RED BLOOD COUNT 5.32 10^6/uL (4.00-5.40)
[2019-12-31 01:00] LABS: ERYTHROCYTE SEDIMENTATION RATE 3 mm/hr (0-20)
[2019-12-31] MEDS ORDERED: ISOVUE-370 76% 100ML VIAL As Ordered ONE (01:04)
[2019-12-31 01:09] LABS: BLOOD UREA NITROGEN 11 MG/DL (7-18); CARBON DIOXIDE LEVEL 24 MEQ/L (21-32); CHLORIDE LEVEL 106 MEQ/L (98-107); CREATININE FOR GFR 0.72 MG/DL (0.55-1.30); GLOMERULAR FILTRATION RATE > 60.0 (>58); GLUCOSE, FASTING 84 MG/DL (70-100); POTASSIUM SERUM 4.8 MEQ/L (3.5-5.1); SODIUM LEVEL 134 MEQ/L (136-145)
--- NOTE | 2019-12-31 01:35 | REPVR ---
PROCEDURE INFORMATION: Exam: CT Maxillofacial With Contrast Exam date and time: 12/30/2019 11:47 PM Age: 44 years old Clinical indication: Jaw pain; Patient HX: Left side pain; Additional info: Tooth infection, facial swelling L TECHNIQUE: Imaging protocol: Computed tomography images of the face with intravenous contrast. Radiation optimization: All CT scans at this facility use at least one of these dose optimization techniques: automated exposure control; mA and/or kV adjustment per patient size (includes targeted exams where dose is matched to clinical indication); or iterative reconstruction. Contrast material: ISO; Contrast volume: 75 ml; Contrast route: INTRAVENOUS (IV); COMPARISON: CT Maxilofacial w/out contrast 05/12/2019 5:17 PM FINDINGS: Orbits: Orbits are normal. Globes are unremarkable. Bones/joints: No acute fracture. Paranasal sinuses: Mucosal thickening in the right maxillary sinus. Remaining paranasal sinuses are clear. Soft tissues: Unremarkable. IMPRESSION: 1. No acute findings. 2. Chronic right maxillary sinusitis. Electronically signed by: Nima Chopra On 12/31/2019 01:35:28 AM
[2019-12-31 01:50] VITALS: BP 96/55
== END 2019-12-31 02:04 | disposition home or self-care (01) ==
LOC: M ED 22:38
DX: K08.89 Other specified disorders of teeth and supporting structures (principal); J32.9 Chronic sinusitis, unspecified; B20 Human immunodeficiency virus [HIV] disease; Z79.899 Other long term (current) drug therapy; Z88.1 Allergy status to other antibiotic agents; Z88.8 Allergy status to other drugs, medicaments and biological substances
CPT/HCPCS: 70487; 80048; 84702; 85025; 85652; 86140; 96361; 96374; 99284; J1885; J2405; Q9967

== ENCOUNTER → 2020-06-05 | Outpatient (CLI) | payer MEDICARE, MEDICAID ==
[~2020-06-05] MED LIST changes: +VITA50005 PO
== END ==
LOC: M LABSMTC 10:22
PROVIDERS: ATTEND Family Medicine
DX: Z20.822 Contact with and (suspected) exposure to COVID-19 (principal)
CPT/HCPCS: C9803; U0003

== ENCOUNTER → 2020-06-12 | Outpatient (REF) | payer MEDICARE, MEDICAID ==
[2020-06-12 16:13] LABS: APPEARANCE, URINE HAZY (CLEAR); BACTERIA, URINE AUTO NEGATIVE (NEGATIVE); BILIRUBIN, URINE AUTO NEGATIVE (NEGATIVE); BLOOD, URINE BLOOD NEGATIVE (NEGATIVE); CALCIUM OXALATE CRYSTALS SMALL; COLOR, URINE YELLOW (YELLOW); GLUCOSE, URINE (UA) AUTO NEGATIVE (NEGATIVE); KETONE, URINE AUTO NEGATIVE (NEGATIVE); LEUKOCYTE ESTERASE, URINE AUTO NEGATIVE (NEGATIVE); MUCUS, URINE SMALL (NEGATIVE); NITRITE, URINE AUTO NEGATIVE (NEGATIVE); PROTEIN, URINE AUTO NEGATIVE (NEGATIVE); RBC, URINE AUTO 1 /HPF (0-3); SPECIFIC GRAVITY URINE AUTO 1.034 (1.002-1.035); SQUAMOUS EPITHELIAL CELL UR AU 2 /HPF (0-6); UROBILINOGEN, URINE AUTO 0.2 mg/dL (0.0-2.0); WBC, URINE AUTO 2 /HPF (0-3)
[2020-06-12 16:48] LABS: ALT/SGPT 52 U/L (12-78); BILIRUBIN,TOTAL 0.2 MG/DL (0.2-1.0); BLOOD UREA NITROGEN 18 MG/DL (7-18); CARBON DIOXIDE LEVEL 30 MEQ/L (21-32); CHLORIDE LEVEL 106 MEQ/L (98-107); CHOLESTEROL LEVEL 276 MG/DL (<200); CHOLESTEROL RISK RATIO 5.207 (<5); CREATININE FOR GFR 0.87 MG/DL (0.55-1.30); FREE T4 0.74 NG/DL (0.76-1.46); GLOMERULAR FILTRATION RATE > 60.0 (>58); GLUCOSE, FASTING 83 MG/DL (70-100); HDL CHOLESTEROL 53 MG/DL (>40); NON-HDL-C 223 MG/DL; POTASSIUM SERUM 4.5 MEQ/L (3.5-5.1); SODIUM LEVEL 140 MEQ/L (136-145); THYROID STIMULATING HORMONE 0.326 uIU/ML (0.358-3.740); TOTAL PROTEIN 7.5 GM/DL (6.4-8.2); TRIGLYCERIDES LEVEL 438 MG/DL (<150)
[2020-06-12 16:53] LABS: HEMOGLOBIN A1c 4.9 %
[2020-06-13 13:18] LABS: TOTAL T3 90.1 NG/DL (60.0-181.0)
[2020-06-15 01:06] LABS: %CD4 Pos Lymphs 45.8 % (30.8-58.5); ABS Eosinophils 0.1 x10E3/uL (0.0-0.4); ABS Lymphs 3.1 x10E3/uL (0.7-3.1); ABS Monocytes 0.6 x10E3/uL (0.1-0.9); ABS Neutophils 3.6 x10E3/uL (1.4-7.0); Abs CD4 Helper 1420 /uL (359-1519); Abs CD8 Suppres 682 /uL (109-897); CD4/CD8 Ratio 2.08 (0.92-3.72); Eosinophils 1 % (Not Estab.); HCT 50.8 % (34.0-46.6); HGB 16.1 g/dL (11.1-15.9); HIV-1 RNA PCR QUANT 2 LC550285 <20 copies/mL (.); Immature Grans 0 % (Not Estab.); Lymphocytes 42 % (Not Estab.); MCH 30.1 pg (26.6-33.0); MCHC 31.7 g/dL (31.5-35.7); MCV 95 fL (79-97); Monocytes 8 % (Not Estab.); Neutrophils 48 % (Not Estab.); Platelets 296 x10E3/uL (150-450); RBC 5.34 x10E6/uL (3.77-5.28); WBC 7.3 x10E3/uL (3.4-10.8)
== END ==
LOC: M SFHCPLAZ 14:21
PROVIDERS: ATTEND Internal Medicine Infectious Disease
DX: B20 Human immunodeficiency virus [HIV] disease (principal); E03.9 Hypothyroidism, unspecified; R63.5 Abnormal weight gain; Z79.899 Other long term (current) drug therapy

== ENCOUNTER → 2020-06-12 | Outpatient (CLI) | payer MEDICARE, MEDICAID ==
--- NOTE | 2020-06-12 15:12 | REPPI ---
INDICATION: M25.561 ACUTE PAIN OF RIGHT KNEE COMPARISON: None. TECHNIQUE: AP and lateral views of the right knee. FINDINGS: No acute fracture or dislocation. No significant degenerative changes. No effusion. IMPRESSION: Normal right knee radiographs. <Electronically signed by Nam Fernandez > 06/12/20 [id number]
--- NOTE | 2020-06-12 15:12 | REPPI ---
INDICATION: M25.512 ACUTE PAIN OF LEFT SHOULDER COMPARISON: None. TECHNIQUE: Internal rotation, external rotation, and Y view. FINDINGS: No acute fracture or dislocation. The acromioclavicular and glenohumeral joints are intact. No periarticular calcifications or degenerative changes are appreciated. Sub acromial space is normal. Surrounding soft tissues are unremarkable. IMPRESSION: Normal age-appropriate left shoulder radiographs. <Electronically signed by Nam Fernandez > 06/12/20 1142
== END ==
LOC: M PLAIMG 14:22
PROVIDERS: ATTEND Internal Medicine Infectious Disease
DX: M25.561 Pain in right knee (principal); M25.512 Pain in left shoulder; B20 Human immunodeficiency virus [HIV] disease; E03.9 Hypothyroidism, unspecified; R63.5 Abnormal weight gain; Z79.899 Other long term (current) drug therapy
CPT/HCPCS: 36415; 73030; 73560; 80053; 80061; 81001; 83036; 84439; 84443; 84480; 86360; 87536; G0463

== ENCOUNTER → 2020-07-03 | Outpatient (CLI) | payer MEDICARE, MEDICAID ==
--- NOTE | 2020-07-03 08:37 | REPVR ---
PROCEDURE INFORMATION: Exam: CT Maxillofacial Without Contrast Exam date and time: 07/03/2020 7:50 AM Age: 45 years old Clinical indication: Face pain; Additional info: Chroinc sinusitis TECHNIQUE: Imaging protocol: Computed tomography images of the face without contrast. Radiation optimization: All CT scans at this facility use at least one of these dose optimization techniques: automated exposure control; mA and/or kV adjustment per patient size (includes targeted exams where dose is matched to clinical indication); or iterative reconstruction. COMPARISON: CT Maxillofacial with contrast 12/31/2019 1:13 AM FINDINGS: Orbital cavity: Orbits are normal. Globes are unremarkable. Bones/joints: No acute fracture. Paranasal sinuses: Stable chronic right maxillary sinusitis. Soft tissues: Unremarkable. IMPRESSION: No interval changes. Stable chronic right maxillary sinusitis. Electronically signed by: Eric Jonas On 07/03/2020 08:37:08 AM
== END ==
LOC: M RAD 07:28
PROVIDERS: ATTEND Internal Medicine Infectious Disease
DX: J32.9 Chronic sinusitis, unspecified (principal)

== ENCOUNTER → 2020-08-22 | Outpatient (CLI) | payer MEDICARE, MEDICAID ==
--- NOTE | 2020-08-22 11:39 | REP ---
INDICATION: CERVICALGIA. Tingling down the left arm. COMPARISON: Comparison MRI cervical spine May 10, 2015.. TECHNIQUE: Sagittal and axial T1 and T2-weighted scans are acquired in the usual fashion with and without fat saturation. Sequences include spin echo, turbo spin-echo, and STIR imaging sequences. . FINDINGS: There is straightening and slight reversal of the normal cervical lordosis. Cervical vertebral body heights are preserved. Alignment is normal. Cortical and medullary bone signal intensity is normal. Craniocervical junction is unremarkable. The cervical cord is normal in course, caliber, and signal intensity on T1 and T2 weighted scans. Axial and sagittal images taken at the C2-3 disc level demonstrate mild central disc bulging at C2-3 unchanged. No spinal stenosis or foraminal narrowing is seen. At C3-4, there is mild central disc bulging also unchanged. No other finding. The C4-5 level shows minimal disc bulging. No foraminal narrowing or spinal stenosis is seen. At C5-C6, there is a small left paracentral focal disc protrusion which is a new finding. This effaces the left ventral margin of the thecal sac and flattens the left ventral margin of the cord. No neural foraminal narrowing is seen. At the C6-7 disc level, today's study demonstrates broad-based central disc bulge which is more prominent than on the prior study. This effaces the ventral subarachnoid space and subtly flattens the ventral margin of the cord. No overall spinal stenosis is seen. No cord compression. No foraminal narrowing is observed. The C7-T1 level is unremarkable. No other abnormality. IMPRESSION: Broad-based diffuse disc bulging C6-7 increased from the prior study. Small left paracentral focal disc protrusion at C5-6. This is quite small but new. <Electronically signed by Isidro Alejo > 08/22/20 0616
== END ==
LOC: M RAD 09:14
PROVIDERS: ATTEND Orthopaedic Surgery
DX: M54.2 Cervicalgia (principal); Z13.39 Encounter for screening examination for other mental health and behavioral disorders

== ENCOUNTER → 2020-08-22 | Outpatient (CLI) | payer MEDICARE, MEDICAID ==
--- NOTE | 2020-08-22 17:53 | ECGEPIP ---
[facility] Test Date: 2020-08-22 Pat Name: DEANDRA BREWER Department: Room: - Gender: Female [employer]: josie : 1975 Requested By: Kurt Vela Order Number: [id number] Reading MD: Aníbal Shaikh Measurements Intervals [place] Rate: 83 P: 24 [place]: 192 QRS: 35 QRSD: 80 T: 52 QT: 364 QTc: 427 Interpretive Statements Normal sinus rhythm Nonspecific T wave abnormality Similar to tracing done 07-01-18 Electronically Signed on 08-22-2020 17:53:20 EDT by Aníbal Shaikh
== END ==
LOC: M EKG 09:20
PROVIDERS: ATTEND Psychiatry & Neurology Psychiatry
DX: Z13.39 Encounter for screening examination for other mental health and behavioral disorders (principal)

== ENCOUNTER → 2021-06-24 | Outpatient (CLI) | payer MEDICARE, MEDICAID ==
[~2021-06-24] MED LIST changes: +ERGO500029 PO; -OLOP0.2S OP; +OLOP2.5D7 OP; -VITA50005 PO
== END ==
LOC: M PLAIMG 11:06
PROVIDERS: ATTEND Otolaryngology
DX: J32.0 Chronic maxillary sinusitis (principal); J34.2 Deviated nasal septum; J34.89 Other specified disorders of nose and nasal sinuses

== ENCOUNTER → 2021-07-02 | Outpatient (CLI) | payer MEDICARE, MEDICAID ==
[2021-07-02 19:12] LABS: ALBUMIN 3.7 GM/DL (3.2-5.2); ALT/SGPT 33 U/L (12-78); BILIRUBIN,TOTAL 0.3 MG/DL (0.2-1.0); BLOOD UREA NITROGEN 11 MG/DL (7-18); CALCIUM LEVEL 8.7 MG/DL (8.5-10.1); CARBON DIOXIDE LEVEL 30 MEQ/L (21-32); CHLORIDE LEVEL 106 MEQ/L (98-107); CREATININE FOR GFR 0.69 MG/DL (0.55-1.30); FREE T4 1.05 NG/DL (0.76-1.46); GLOMERULAR FILTRATION RATE > 60.0 (>58); GLUCOSE, FASTING 81 MG/DL (70-100); SODIUM LEVEL 139 MEQ/L (136-145); THYROID STIMULATING HORMONE 0.253 uIU/ML (0.358-3.740); TOTAL PROTEIN 6.9 GM/DL (6.4-8.2)
== END ==
LOC: M LAB 16:38
PROVIDERS: ATTEND Internal Medicine Infectious Disease
DX: B20 Human immunodeficiency virus [HIV] disease (principal); E03.9 Hypothyroidism, unspecified

== ENCOUNTER → 2021-09-26 | Outpatient (CLI) | payer MEDICARE, MEDICAID ==
[2021-09-26 14:22] LABS: BASO % 0.4 % (0.0-1.0); EOS # 0.1 10^3/uL (0.0-0.5); EOS % 0.9 % (0.0-3.0); HEMOGLOBIN 15.4 g/dl (12.0-15.5); LYMPH # 2.4 10^3/uL (1.5-5.0); LYMPH % 33.9 % (24.0-44.0); MEAN CORPUSCULAR HGB CONC 33.5 g/dl (32.0-36.5); MEAN CORPUSCULAR VOLUME 92.7 fl (80.0-96.0); MONO # 0.6 10^3/uL (0.0-0.8); MONO % 8.7 % (2.0-8.0); NEUTROPHILS # 3.9 10^3/uL (1.5-8.5); PLATELET COUNT, AUTOMATED 275 10^3/uL (150-450); RED BLOOD COUNT 4.96 10^6/uL (4.00-5.40)
[2021-09-26 14:44] LABS: ERYTHROCYTE SEDIMENTATION RATE 4 mm/hr (0-20)
[2021-09-26 15:03] LABS: BLOOD UREA NITROGEN 8 MG/DL (7-18); CREATININE FOR GFR 0.69 MG/DL (0.55-1.30); GLUCOSE, FASTING 80 MG/DL (70-100)
[2021-09-26 15:04] LABS: ALBUMIN 3.7 GM/DL (3.2-5.2); ALT/SGPT 55 U/L (12-78); BILIRUBIN,TOTAL 0.3 MG/DL (0.2-1.0); CALCIUM LEVEL 8.4 MG/DL (8.5-10.1); CARBON DIOXIDE LEVEL 22 MEQ/L (21-32); CHLORIDE LEVEL 108 MEQ/L (98-107); CHOLESTEROL LEVEL 236 MG/DL (<200); CHOLESTEROL RISK RATIO 5.756 (<5); FREE T4 0.52 NG/DL (0.76-1.46); GLOMERULAR FILTRATION RATE > 60.0 (>58); HDL CHOLESTEROL 41 MG/DL (>40); NON-HDL-C 195 MG/DL; POTASSIUM SERUM 4.1 MEQ/L (3.5-5.1); SODIUM LEVEL 138 MEQ/L (136-145); TOTAL PROTEIN 7.1 GM/DL (6.4-8.2); TRIGLYCERIDES LEVEL 400 MG/DL (<150)
== END ==
LOC: M LAB 13:34
PROVIDERS: ATTEND Physician Assistant Medical
DX: Z00.00 Encounter for general adult medical examination without abnormal findings (principal); E78.00 Pure hypercholesterolemia, unspecified; J30.9 Allergic rhinitis, unspecified

== ENCOUNTER → 2021-10-13 | Outpatient (CLI) | payer MEDICARE, MEDICAID ==
[~2021-10-13] MED LIST changes: +ADVA115A; +AUGM250S13 PO; +BIKT1TAB; +BOTO200I; +CARI1TAB7 PO; +CETI10CH PO; +FLUC150T9; +FLUO0.0118; +HYDR-4517; +IBUP200C25 PO; +LEVO2TA PO; +LINZ290C; +LIOT5TAB6; +METH4PACK; +QNASL; +TRIA1CR80
== END ==
LOC: M LABSMTC 11:22
PROVIDERS: ATTEND Anesthesiology
DX: Z01.818 Encounter for other preprocedural examination (principal); Z11.52 Encounter for screening for COVID-19

== ENCOUNTER 2021-10-17 06:03 | Day surgery (SDC) | payer MEDICARE, MEDICAID ==
[~2021-10-17] VITALS: Ht 167.6 cm; Wt 125.6 kg
[2021-10-17] MEDS ORDERED: LR 1,000 ML IV SCH ×3 (06:40→14:00)
[2021-10-17] MEDS ORDERED: dexameTHASONE 4 MG/ML 1ML VIAL (J1100 PER 1MG) IV ONE (06:55)
[2021-10-17] MEDS ORDERED: METHYLENE BLUE 0.5% (5MG/ML) 10 ML AMP (PROVAYBLUE) As Ordered ONE (07:18)
[2021-10-17] MEDS ORDERED: LIDOCAINE W/EPINEPHRINE 1% 20ML VIAL As Ordered ONE (07:18)
[2021-10-17] MEDS ORDERED: EPINEPHrine 1MG/ML INJ 30ML MD-VIAL As Ordered ONE (07:19)
[2021-10-17] MEDS ORDERED: SODIUM CHLORIDE 0.9% NASAL GEL 15GM (AYR) As Ordered ONE (07:19)
[2021-10-17] MEDS ORDERED: fentaNYL 250 MCG/5 ML INJECTION As Ordered ONE (09:39)
[2021-10-17] MEDS ORDERED: ROCURONIUM BROMIDE 50 MG/5 ML VIAL As Ordered ONE ×2 (09:39→09:46)
[2021-10-17] MEDS ORDERED: dexameTHASONE 4 MG/ML 1ML VIAL (J1100 PER 1MG) As Ordered ONE (09:39)
[2021-10-17] MEDS ORDERED: LIDOCAINE 2% INJ 100 MG/5 ML SYRINGE As Ordered ONE (09:39)
[2021-10-17] MEDS ORDERED: ONDANSETRON 4MG 2ML VIAL As Ordered ONE (09:39)
[2021-10-17] MEDS ORDERED: MIDAZOLAM INJ 2MG/2ML VIAL (J2250 PER 1MG) As Ordered ONE (09:39)
[2021-10-17] MEDS ORDERED: HYDROmorphone HCL 2MG/ML 1ML VIAL As Ordered ONE (09:40)
[2021-10-17] MEDS ORDERED: PHENYLephrine 500MCG 5ML (100MCG/ML) SYRINGE As Ordered ONE (09:51)
[2021-10-17] MEDS ORDERED: ACETAMINOPHEN 1000MG 100ML IV BTL (OFIRMEV) (J0131 PER 10MG) As Ordered ONE (10:46)
[2021-10-17] MEDS ORDERED: SUGAMMADEX SODIUM 500 MG/5 ML VIAL (BRIDION) As Ordered ONE (11:21)
[2021-10-17] MEDS ORDERED: ONDANSETRON 4MG 2ML VIAL IV PRN (11:40)
[2021-10-17] MEDS ORDERED: oxyCODONE 5MG TAB PO PRN (11:40)
[2021-10-17] MEDS ORDERED: METOCLOPRAMIDE INJ 10MG/2ML VIAL (J2765 PER 1) IV PRN (11:40)
[2021-10-17] MEDS ORDERED: fentaNYL 100 MCG/2 ML INJECTION IV PRN (11:40)
[2021-10-17] MEDS: HYDROMORPHONE HCL 0.5 MG/ 0.5 ML SYRINGE (J1170 PER 1) IV PRN ×2 (12:13→12:20)
[2021-10-17 14:15] VITALS: BP 135/72
== END 2021-10-17 14:15 | disposition home or self-care (01) ==
LOC: M SDC 06:03
PROVIDERS: ATTEND Otolaryngology
DX: J34.2 Deviated nasal septum (principal); J32.0 Chronic maxillary sinusitis; E03.9 Hypothyroidism, unspecified; E78.5 Hyperlipidemia, unspecified; M79.7 Fibromyalgia; K58.9 Irritable bowel syndrome, unspecified; F32.A Depression, unspecified; F41.9 Anxiety disorder, unspecified; F43.10 Post-traumatic stress disorder, unspecified; F90.9 Attention-deficit hyperactivity disorder, unspecified type; G43.909 Migraine, unspecified, not intractable, without status migrainosus; M19.90 Unspecified osteoarthritis, unspecified site; Z21 Asymptomatic human immunodeficiency virus [HIV] infection status; L40.9 Psoriasis, unspecified; Z86.69 Personal history of other diseases of the nervous system and sense organs; Z79.899 Other long term (current) drug therapy; Z79.890 Hormone replacement therapy; Z97.5 Presence of (intrauterine) contraceptive device; Z88.5 Allergy status to narcotic agent; Z88.8 Allergy status to other drugs, medicaments and biological substances
CPT/HCPCS: 31254; 31256; 31295; 61782; 88305; C2625; J0131; J0171; J1100; J1170; J2250; J2370; J2405; J3010; Q9968

== ENCOUNTER → 2021-11-05 | Outpatient (REF) | payer MEDICARE, MEDICAID | LOC: M LAB REF 15:56 | PROVIDERS: ATTEND Otolaryngology | DX: J34.2 Deviated nasal septum (principal); J32.0 Chronic maxillary sinusitis ==

== ENCOUNTER → 2021-12-27 | Outpatient (REF) | payer MEDICARE, MEDICAID | LOC: M LAB REF 17:12 | PROVIDERS: ATTEND Otolaryngology | DX: J34.2 Deviated nasal septum (principal) ==

== ENCOUNTER → 2022-01-06 | Outpatient (CLI) | payer MEDICARE ==
[2022-01-06 19:04] LABS: ALBUMIN 3.8 GM/DL (3.2-5.2); BILIRUBIN,TOTAL 0.2 MG/DL (0.2-1.0); CALCIUM LEVEL 9.6 MG/DL (8.5-10.1); CHOLESTEROL RISK RATIO 4.963 (<5); CREATININE FOR GFR 1.04 MG/DL (0.55-1.30); FREE T4 0.96 NG/DL (0.76-1.46); POTASSIUM SERUM 4.8 MEQ/L (3.5-5.1); THYROID STIMULATING HORMONE 0.057 uIU/ML (0.358-3.740); TOTAL PROTEIN 7.3 GM/DL (6.4-8.2)
[2022-01-06 20:06] LABS: TOTAL T3 111.6 NG/DL (60.0-181.0)
[2022-01-09 04:07] LABS: % CD8 Pos Lymph 17.2 % (12.0-35.5); ABS Eosinophils 0.1 x10E3/uL (0.0-0.4); ABS Lymphs 2.3 x10E3/uL (0.7-3.1); ABS Monocytes 0.4 x10E3/uL (0.1-0.9); ABS Neutophils 2.2 x10E3/uL (1.4-7.0); Abs CD4 Helper 1104 /uL (359-1519); Abs CD8 Suppres 396 /uL (109-897); CD4/CD8 Ratio 2.79 (0.92-3.72); Eosinophils 1 % (Not Estab.); HCT 47.9 % (34.0-46.6); HGB 15.6 g/dL (11.1-15.9); HIV-1 RNA PCR QUANT 2 LC550285 30 copies/mL (.); HIV-1 RNA PCR QUANT 3 LC550285 1.477 (.); Immature Grans 0 % (Not Estab.); Lymphocytes 46 % (Not Estab.); MCH 29.4 pg (26.6-33.0); MCHC 32.6 g/dL (31.5-35.7); MCV 90 fL (79-97); Monocytes 9 % (Not Estab.); Neutrophils 44 % (Not Estab.); Platelets 293 x10E3/uL (150-450); RDW 11.7 % (11.7-15.4); WBC 4.9 x10E3/uL (3.4-10.8)
== END ==
LOC: M PLALAB 14:54
PROVIDERS: ATTEND Internal Medicine Infectious Disease
DX: R06.09 Other forms of dyspnea (principal); B20 Human immunodeficiency virus [HIV] disease; E03.9 Hypothyroidism, unspecified; E78.00 Pure hypercholesterolemia, unspecified

== ENCOUNTER → 2022-02-20 | Outpatient (CLI) | payer MEDICARE, MEDICAID ==
[~2022-02-20] MED LIST changes: -DOXY-350 PO; +DOXY-444 PO
== END ==
LOC: M WHC 14:22
PROVIDERS: ATTEND Nurse Practitioner Family
DX: Z53.9 Procedure and treatment not carried out, unspecified reason (principal)

== ENCOUNTER → 2022-02-20 | Outpatient (CLI) | payer MEDICARE, MEDICAID | LOC: M WHC 10:15 | PROVIDERS: ATTEND Nurse Practitioner Family | DX: Z12.31 Encounter for screening mammogram for malignant neoplasm of breast (principal); Z80.0 Family history of malignant neoplasm of digestive organs; Z80.3 Family history of malignant neoplasm of breast; Z80.41 Family history of malignant neoplasm of ovary ==

== ENCOUNTER → 2022-02-20 | Outpatient (REF) | payer MEDICARE, MEDICAID | LOC: M SFHCWAGY 16:59 | PROVIDERS: ATTEND Nurse Practitioner Family | DX: R39.15 Urgency of urination (principal); Z12.4 Encounter for screening for malignant neoplasm of cervix | CPT/HCPCS: 87086; 87624; G0123 ==

== ENCOUNTER → 2022-04-21 | Outpatient (REF) | payer MEDICARE, MEDICAID | LOC: M SFHCPLAZ 12:49 | PROVIDERS: ATTEND Physician Assistant Medical | DX: J01.01 Acute recurrent maxillary sinusitis (principal) ==

== ENCOUNTER → 2022-09-17 | Outpatient (REF) | payer MEDICARE, MEDICAID ==
[~2022-09-17] MED LIST changes: +LORA1TAB23 PO; -LORA1TAB4 PO; +MONT-5 PO; -SING10TA32 PO
[2022-09-17 21:31] LABS: APPEARANCE, URINE HAZY (CLEAR); BACTERIA, URINE AUTO NEGATIVE (NEGATIVE); BILIRUBIN, URINE AUTO NEGATIVE (NEGATIVE); BLOOD, URINE BLOOD 3+ (NEGATIVE); COLOR, URINE YELLOW (YELLOW); GLUCOSE, URINE (UA) AUTO NEGATIVE (NEGATIVE); KETONE, URINE AUTO NEGATIVE (NEGATIVE); LEUKOCYTE ESTERASE, URINE AUTO NEGATIVE (NEGATIVE); MUCUS, URINE SMALL (NEGATIVE); NITRITE, URINE AUTO NEGATIVE (NEGATIVE); PROTEIN, URINE AUTO NEGATIVE (NEGATIVE); RBC, URINE AUTO 20 /HPF (0-3); SPECIFIC GRAVITY URINE AUTO 1.011 (1.002-1.035); SQUAMOUS EPITHELIAL CELL UR AU 0 /HPF (0-6); UROBILINOGEN, URINE AUTO 0.2 mg/dL (0.0-2.0); WBC, URINE AUTO 1 /HPF (0-3)
== END ==
LOC: M LAB REF 21:13
PROVIDERS: ATTEND Physician Assistant
DX: N39.0 Urinary tract infection, site not specified (principal)

== ENCOUNTER → 2022-10-09 | Outpatient (CLI) | payer MEDICARE, MEDICAID ==
[2022-10-09 17:03] LABS: ALBUMIN 3.6 G/DL (3.2-5.2); ALKALINE PHOSPHATASE 134 U/L (46-116); ALT/SGPT 48 U/L (7.0-40); AST/SGOT 34 U/L (<34); BILIRUBIN,TOTAL 0.4 MG/DL (0.3-1.2); BLOOD UREA NITROGEN 9 MG/DL (9-23); CALCIUM LEVEL 9.5 MG/DL (8.5-10.1); CARBON DIOXIDE LEVEL 27 MMOL/L (20-31); CHLORIDE LEVEL 106 MMOL/L (98-107); CHOLESTEROL LEVEL 209 MG/DL (<200); CHOLESTEROL RISK RATIO 4.33 (<5); CREATININE FOR GFR 0.56 MG/DL (0.55-1.30); GLOMERULAR FILTRATION RATE > 60.0 (>58); GLUCOSE, FASTING 85 MG/DL (60-100); HDL CHOLESTEROL 48.2 MG/DL (>40); LDL CHOLESTEROL 116.6 MG/DL (<100); NON-HDL-C 160.8 MG/DL; POTASSIUM SERUM 4.7 MMOL/L (3.5-5.1); SODIUM LEVEL 139 MMOL/L (136-145); TOTAL PROTEIN 6.3 G/DL (5.7-8.2); TRIGLYCERIDES LEVEL 221 MG/DL (<150)
[2022-10-09 17:05] LABS: FREE T4 1.38 NG/DL (0.89-1.76); THYROID STIMULATING HORMONE 0.008 uIU/ML (0.55-4.78)
[2022-10-13 16:08] LABS: % CD8 Pos Lymph 19.7 % (12.0-35.5); %CD4 Pos Lymphs 48.6 % (30.8-58.5); ABS Lymphs 1.6 x10E3/uL (0.7-3.1); ABS Monocytes 0.3 x10E3/uL (0.1-0.9); ABS Neutophils 1.9 x10E3/uL (1.4-7.0); Abs CD4 Helper 778 /uL (359-1519); Abs CD8 Suppres 315 /uL (109-897); CD4/CD8 Ratio 2.47 (0.92-3.72); Eosinophils 1 % (Not Estab.); HCT 46.8 % (34.0-46.6); HGB 15.2 g/dL (11.1-15.9); HIV-1 RNA PCR QUANT 2 LC550285 <20 copies/mL (.); Immature Grans 0 % (Not Estab.); Lymphocytes 42 % (Not Estab.); MCHC 32.5 g/dL (31.5-35.7); MCV 93 fL (79-97); Monocytes 7 % (Not Estab.); Neutrophils 50 % (Not Estab.); Platelets 251 x10E3/uL (150-450); RBC 5.06 x10E6/uL (3.77-5.28); RDW 12.7 % (11.7-15.4); WBC 3.9 x10E3/uL (3.4-10.8)
== END ==
LOC: M LAB 15:25
PROVIDERS: ATTEND Internal Medicine Infectious Disease
DX: E78.00 Pure hypercholesterolemia, unspecified (principal); B20 Human immunodeficiency virus [HIV] disease; E03.9 Hypothyroidism, unspecified

== ENCOUNTER → 2022-10-28 | Outpatient (REF) | payer MEDICARE, MEDICAID ==
[2022-10-28 21:21] LABS: APPEARANCE, URINE CLOUDY (CLEAR); BACTERIA, URINE AUTO 1+ (NEGATIVE); BILIRUBIN, URINE AUTO NEGATIVE (NEGATIVE); BLOOD, URINE BLOOD NEGATIVE (NEGATIVE); CALCIUM OXALATE CRYSTALS MODERATE; COLOR, URINE YELLOW (YELLOW); GLUCOSE, URINE (UA) AUTO NEGATIVE (NEGATIVE); KETONE, URINE AUTO NEGATIVE (NEGATIVE); LEUKOCYTE ESTERASE, URINE AUTO 2+ (NEGATIVE); MUCUS, URINE LARGE (NEGATIVE); NITRITE, URINE AUTO NEGATIVE (NEGATIVE); PROTEIN, URINE AUTO 1+ mg/dL (NEGATIVE); RBC, URINE AUTO 1 /HPF (0-3); SPECIFIC GRAVITY URINE AUTO 1.026 (1.002-1.035); SQUAMOUS EPITHELIAL CELL UR AU 10 /HPF (0-6); UROBILINOGEN, URINE AUTO 0.2 mg/dL (0.0-2.0); WBC, URINE AUTO 10 /HPF (0-3)
== END ==
LOC: M LAB REF 21:00
PROVIDERS: ATTEND Physician Assistant Medical
DX: N39.0 Urinary tract infection, site not specified (principal)

== ENCOUNTER → 2022-11-08 | Outpatient (REF) | payer MEDICARE, MEDICAID ==
[2022-11-08 16:03] LABS: APPEARANCE, URINE CLEAR (CLEAR); BACTERIA, URINE AUTO NEGATIVE (NEGATIVE); BILIRUBIN, URINE AUTO NEGATIVE (NEGATIVE); BLOOD, URINE BLOOD NEGATIVE (NEGATIVE); COLOR, URINE YELLOW (YELLOW); GLUCOSE, URINE (UA) AUTO NEGATIVE (NEGATIVE); KETONE, URINE AUTO NEGATIVE (NEGATIVE); LEUKOCYTE ESTERASE, URINE AUTO 2+ (NEGATIVE); MUCUS, URINE SMALL (NEGATIVE); NITRITE, URINE AUTO NEGATIVE (NEGATIVE); PROTEIN, URINE AUTO NEGATIVE (NEGATIVE); RBC, URINE AUTO 1 /HPF (0-3); SPECIFIC GRAVITY URINE AUTO 1.017 (1.002-1.035); SQUAMOUS EPITHELIAL CELL UR AU 2 /HPF (0-6); UROBILINOGEN, URINE AUTO 0.2 mg/dL (0.0-2.0); WBC, URINE AUTO 2 /HPF (0-3)
== END ==
LOC: M LAB REF 15:30
PROVIDERS: ATTEND Physician Assistant Medical
DX: N39.0 Urinary tract infection, site not specified (principal)

== ENCOUNTER → 2022-11-13 | Outpatient (REF) | payer MEDICARE, MEDICAID ==
[2022-11-13 17:39] LABS: APPEARANCE, URINE CLEAR (CLEAR); BACTERIA, URINE AUTO NEGATIVE (NEGATIVE); BILIRUBIN, URINE AUTO NEGATIVE (NEGATIVE); BLOOD, URINE BLOOD NEGATIVE (NEGATIVE); COLOR, URINE STRAW (YELLOW); GLUCOSE, URINE (UA) AUTO NEGATIVE (NEGATIVE); KETONE, URINE AUTO NEGATIVE (NEGATIVE); LEUKOCYTE ESTERASE, URINE AUTO NEGATIVE (NEGATIVE); NITRITE, URINE AUTO NEGATIVE (NEGATIVE); PROTEIN, URINE AUTO NEGATIVE (NEGATIVE); RBC, URINE AUTO 1 /HPF (0-3); SPECIFIC GRAVITY URINE AUTO 1.012 (1.002-1.035); SQUAMOUS EPITHELIAL CELL UR AU 0 /HPF (0-6); UROBILINOGEN, URINE AUTO 0.2 mg/dL (0.0-2.0); WBC, URINE AUTO 0 /HPF (0-3)
[2022-11-13 19:02] LABS: GC DNA AMPLIFICATION NEGATIVE (NEGATIVE)
== END ==
LOC: M SFHCPLAZ 17:14
PROVIDERS: ATTEND Internal Medicine Infectious Disease
DX: R10.9 Unspecified abdominal pain (principal)

== ENCOUNTER → 2022-11-17 | Outpatient (CLI) | payer MEDICARE, MEDICAID ==
[~2022-11-17] MED LIST changes: +ISOVUE-370 76% 100ML VIAL As Ordered ONE
== END ==
LOC: M RAD 15:09
PROVIDERS: ATTEND Internal Medicine Infectious Disease
DX: R10.31 Right lower quadrant pain (principal)
CPT/HCPCS: 74178; Q9967

== ENCOUNTER → 2022-11-28 | Outpatient (CLI) | payer MEDICARE, MEDICAID ==
[~2022-11-28] MED LIST changes: -ISOVUE-370 76% 100ML VIAL As Ordered ONE
[2022-11-28 14:12] LABS: FREE T4 1.41 NG/DL (0.89-1.76); THYROID STIMULATING HORMONE 0.008 uIU/ML (0.55-4.78)
[2022-11-28 14:51] LABS: HEPATITIS B CORE ANTIBODY IGM NEGATIVE (NEGATIVE); HEPATITIS C VIRUS ABY INDEX 0.12 INDEX (<0.8)
== END ==
LOC: M LAB 12:32
PROVIDERS: ATTEND Physician Assistant Medical
DX: E03.9 Hypothyroidism, unspecified (principal); R10.31 Right lower quadrant pain; B20 Human immunodeficiency virus [HIV] disease; F33.1 Major depressive disorder, recurrent, moderate; B00.9 Herpesviral infection, unspecified; E66.01 Morbid (severe) obesity due to excess calories; M46.94 Unspecified inflammatory spondylopathy, thoracic region; Z68.42 Body mass index [BMI] 45.0-49.9, adult; Z91.09 Other allergy status, other than to drugs and biological substances

== ENCOUNTER → 2022-11-28 | Outpatient (CLI) | payer MEDICARE, MEDICAID | LOC: M LAB 12:33 | PROVIDERS: ATTEND Nurse Practitioner Family | DX: Z11.3 Encounter for screening for infections with a predominantly sexual mode of transmission (principal) ==

== ENCOUNTER → 2023-02-23 | Outpatient (CLI) | payer MEDICARE, MEDICAID | LOC: M WHC 13:30 | PROVIDERS: ATTEND Nurse Practitioner Family | DX: Z12.31 Encounter for screening mammogram for malignant neoplasm of breast (principal) ==

== ENCOUNTER → 2023-02-23 | Outpatient (REF) | payer MEDICARE, MEDICAID | LOC: M SFHCWAGY 09:05 | PROVIDERS: ATTEND Nurse Practitioner Family | DX: Z12.4 Encounter for screening for malignant neoplasm of cervix (principal); R87.810 Cervical high risk human papillomavirus (HPV) DNA test positive; R87.610 Atypical squamous cells of undetermined significance on cytologic smear of cervix (ASC-US); R87.5 Abnormal microbiological findings in specimens from female genital organs; R87.618 Other abnormal cytological findings on specimens from cervix uteri | CPT/HCPCS: 87624; G0123 ==

== ENCOUNTER → 2023-04-26 | Outpatient (CLI) | payer MEDICARE, MEDICAID ==
[2023-04-26 11:42] LABS: ALBUMIN 3.8 G/DL (3.2-5.2); ALKALINE PHOSPHATASE 111 U/L (46-116); ALT/SGPT 26 U/L (7.0-40); AST/SGOT 8 U/L (<34); BILIRUBIN,TOTAL 0.5 MG/DL (0.3-1.2); BLOOD UREA NITROGEN 16 MG/DL (9-23); CALCIUM LEVEL 9.3 MG/DL (8.5-10.1); CARBON DIOXIDE LEVEL 30 MMOL/L (20-31); CHLORIDE LEVEL 99 MMOL/L (98-107); CREATININE FOR GFR 0.66 MG/DL (0.55-1.30); GLOMERULAR FILTRATION RATE > 60.0 (>51); GLUCOSE, FASTING 89 MG/DL (60-100); POTASSIUM SERUM 4.5 MMOL/L (3.5-5.1); SODIUM LEVEL 135 MMOL/L (136-145); TOTAL PROTEIN 6.8 G/DL (5.7-8.2)
[2023-04-26 11:44] LABS: FREE T4 1.01 NG/DL (0.89-1.76); THYROID STIMULATING HORMONE 0.952 uIU/ML (0.55-4.78)
== END ==
LOC: M LAB 10:33
PROVIDERS: ATTEND Internal Medicine Infectious Disease
DX: B20 Human immunodeficiency virus [HIV] disease (principal); E03.9 Hypothyroidism, unspecified

== ENCOUNTER → 2023-05-05 | Outpatient (REF) | payer MEDICARE, MEDICAID | LOC: M LAB REF 17:25 | PROVIDERS: ATTEND Otolaryngology | DX: J32.0 Chronic maxillary sinusitis (principal) ==

== ENCOUNTER → 2023-08-06 | Outpatient (CLI) | payer MEDICARE, MEDICAID ==
[~2023-08-06] MED LIST changes: +ADDE25CA PO; +CABO6SUS IM; +DOXY-440 PO; -DOXY-444 PO; +FURO20TA2 PO; +GABA-284 PO; -MINO100T PO; +MINO100T6 PO; +MULT-90 PO
== END ==
LOC: M LAB 12:12
PROVIDERS: ATTEND Physician Assistant
DX: L40.0 Psoriasis vulgaris (principal)

== ENCOUNTER → 2023-08-06 | Outpatient (CLI) | payer MEDICARE, MEDICAID ==
[2023-08-06 13:58] LABS: BASO % 0.5 % (0.0-1.0); EOS # 0.1 10^3/uL (0.0-0.5); HEMATOCRIT 45.4 % (36.0-47.0); HEMOGLOBIN 15.2 g/dl (12.0-15.5); LYMPH # 3.2 10^3/uL (1.5-5.0); LYMPH % 39.1 % (24.0-44.0); MEAN CORPUSCULAR HEMOGLOBIN 30.6 pg (27.0-33.0); MEAN CORPUSCULAR HGB CONC 33.5 g/dl (32.0-36.5); MEAN CORPUSCULAR VOLUME 91.3 fl (80.0-96.0); MONO # 0.6 10^3/uL (0.0-0.8); MONO % 7.1 % (2.0-8.0); NEUTROPHILS # 4.3 10^3/uL (1.5-8.5); NEUTROPHILS % 52.2 % (36.0-66.0); PLATELET COUNT, AUTOMATED 310 10^3/uL (150-450); RED BLOOD COUNT 4.97 10^6/uL (4.00-5.40); WHITE BLOOD COUNT 8.2 10^3/uL (4.0-10.0)
[2023-08-06 14:16] LABS: HEMOGLOBIN A1c 4.8 % (4.0-6.0)
[2023-08-06 14:18] LABS: ALBUMIN 3.4 G/DL (3.2-5.2); ALKALINE PHOSPHATASE 95 U/L (46-116); ALT/SGPT 22 U/L (7.0-40); AST/SGOT 15 U/L (<34); BILIRUBIN,TOTAL 0.3 MG/DL (0.3-1.2); BLOOD UREA NITROGEN 16 MG/DL (9-23); CALCIUM LEVEL 9.3 MG/DL (8.5-10.1); CARBON DIOXIDE LEVEL 29 MMOL/L (20-31); CHLORIDE LEVEL 104 MMOL/L (98-107); CREATININE FOR GFR 0.66 MG/DL (0.55-1.30); GLOMERULAR FILTRATION RATE > 60.0 (>51); GLUCOSE, FASTING 77 MG/DL (60-100); POTASSIUM SERUM 4.3 MMOL/L (3.5-5.1); SODIUM LEVEL 139 MMOL/L (136-145); TOTAL PROTEIN 6.3 G/DL (5.7-8.2)
[2023-08-06 14:20] LABS: THYROID STIMULATING HORMONE 0.277 uIU/ML (0.55-4.78)
[2023-08-06 14:21] LABS: FREE T4 0.91 NG/DL (0.89-1.76)
== END ==
LOC: M LAB 12:13
PROVIDERS: ATTEND Physician Assistant Medical
DX: R10.9 Unspecified abdominal pain (principal); E03.9 Hypothyroidism, unspecified; E66.01 Morbid (severe) obesity due to excess calories; Z79.899 Other long term (current) drug therapy

== ENCOUNTER → 2023-08-06 | Outpatient (CLI) | payer MEDICARE, MEDICAID ==
[2023-08-06 13:57] LABS: BASO # 0.1 10^3/uL (0.0-0.2); BASO % 0.6 % (0.0-1.0); EOS # 0.1 10^3/uL (0.0-0.5); EOS % 1.2 % (0.0-3.0); HEMATOCRIT 45.1 % (36.0-47.0); HEMOGLOBIN 15.1 g/dl (12.0-15.5); LYMPH % 38.2 % (24.0-44.0); MEAN CORPUSCULAR HEMOGLOBIN 30.5 pg (27.0-33.0); MEAN CORPUSCULAR HGB CONC 33.5 g/dl (32.0-36.5); MEAN CORPUSCULAR VOLUME 91.1 fl (80.0-96.0); MONO # 0.6 10^3/uL (0.0-0.8); MONO % 7.2 % (2.0-8.0); NEUTROPHILS # 4.1 10^3/uL (1.5-8.5); NEUTROPHILS % 52.5 % (36.0-66.0); PLATELET COUNT, AUTOMATED 321 10^3/uL (150-450); RED BLOOD COUNT 4.95 10^6/uL (4.00-5.40); WHITE BLOOD COUNT 7.7 10^3/uL (4.0-10.0)
[2023-08-06 14:03] LABS: ERYTHROCYTE SEDIMENTATION RATE 6 mm/hr (0-30)
[2023-08-06 14:17] LABS: C REACTIVE PROTEIN QUANTITATIV < 0.40 MG/DL (<1.0)
[2023-08-06 14:18] LABS: RHEUMATOID FACTOR QUANT 6.5 IU/ML (<14)
[2023-08-07 15:11] LABS: ANTINUCLEAR ANTIBODIES DIRECT Negative (Negative)
== END ==
LOC: M LAB 12:08
PROVIDERS: ATTEND Physician Assistant
DX: M17.0 Bilateral primary osteoarthritis of knee (principal); I10 Essential (primary) hypertension

== ENCOUNTER → 2023-08-06 | Outpatient (CLI) | payer MEDICARE, MEDICAID | LOC: M EKG 12:16 | PROVIDERS: ATTEND Student in an Organized Health Care Education/Training Program | DX: Z01.818 Encounter for other preprocedural examination (principal); H26.9 Unspecified cataract ==

== ENCOUNTER → 2023-08-06 | Outpatient (CLI) | payer MEDICARE, MEDICAID ==
[2023-08-08 19:10] LABS: HIV-1 RNA PCR QUANT 2 LC550285 <20 copies/mL (.)
== END ==
LOC: M LAB 12:15
PROVIDERS: ATTEND Internal Medicine Infectious Disease
DX: B20 Human immunodeficiency virus [HIV] disease (principal)

== ENCOUNTER 2023-08-12 07:53 | Day surgery (SDC) | payer MEDICARE, MEDICAID ==
[~2023-08-12] VITALS: Ht 165.1 cm; Wt 127.4 kg
[~2023-08-12 07:53] MED LIST changes: +LIDOCAINE 3.5 % 1ML OPHTH TOPICAL GEL OU ONE; +PHENYLEPHRINE 10% OPHTH SOL 5ML OD PRN
[2023-08-12] MEDS: PHENYLEPHRINE 2.5% OPHTH SOL 2ML OD SCH (08:09)
[2023-08-12] MEDS: TROPICAMIDE 1% OPHTH SOLN 15ML OD SCH (08:09)
[2023-08-12] MEDS: ATROPINE SULFATE 1% OPHTH SOLN 2ML BTL OD SCH (08:09)
[2023-08-12] MEDS: OFLOXACIN 0.3 % (OCUFLOX) OPTH SOL 5ML OD ONE (08:09)
[2023-08-12] MEDS ORDERED: fentaNYL 100 MCG/2 ML INJECTION As Ordered ONE (08:24)
[2023-08-12] MEDS ORDERED: MIDAZOLAM INJ 2MG/2ML VIAL As Ordered ONE (08:25)
[2023-08-12] MEDS: LIDOCAINE 1% SDV 5ML VIAL As Ordered ONE (08:34)
[2023-08-12] MEDS: CEFUROXIME 1MG/0.1ML INTRACAMERAL INJ As Ordered ONE (08:35)
[2023-08-12] MEDS: BSS IRRIG/VANCO(10MG)/TOBRA(5MG)/EPINEPH(1:1000-0.5CC)500ML BAG-ORONLY As Ordered ONE (08:35)
[2023-08-12 08:50] VITALS: BP 133/84; TEMP 96.4; O2SAT 96
== END 2023-08-12 09:02 | disposition home or self-care (01) ==
LOC: M SDC 07:53
PROVIDERS: ATTEND Ophthalmology
DX: H25.11 Age-related nuclear cataract, right eye (principal); E03.9 Hypothyroidism, unspecified; K58.8 Other irritable bowel syndrome; F90.9 Attention-deficit hyperactivity disorder, unspecified type; F43.10 Post-traumatic stress disorder, unspecified; B20 Human immunodeficiency virus [HIV] disease; L40.9 Psoriasis, unspecified; M79.7 Fibromyalgia; F41.9 Anxiety disorder, unspecified; F32.A Depression, unspecified; G43.909 Migraine, unspecified, not intractable, without status migrainosus; Z79.899 Other long term (current) drug therapy; Z79.51 Long term (current) use of inhaled steroids; Z88.5 Allergy status to narcotic agent; Z88.1 Allergy status to other antibiotic agents
CPT/HCPCS: 66984; 92015; J0697; J2250; J3010; V2788

== ENCOUNTER 2023-09-02 08:18 | Day surgery (SDC) | payer MEDICARE, MEDICAID ==
[~2023-09-02] VITALS: Ht 165.1 cm; Wt 128.9 kg
[~2023-09-02 08:18] MED LIST changes: +APRE1TAB PO; -LIDOCAINE 3.5 % 1ML OPHTH TOPICAL GEL OU ONE; -PHENYLEPHRINE 10% OPHTH SOL 5ML OD PRN; +PHENYLEPHRINE 10% OPHTH SOL 5ML OS PRN
[2023-09-02] MEDS: OFLOXACIN 0.3 % (OCUFLOX) OPTH SOL 5ML OS ONE (09:47)
[2023-09-02] MEDS: LIDOCAINE 3.5 % 1ML OPHTH TOPICAL GEL OU ONE (09:48)
[2023-09-02] MEDS: PHENYLEPHRINE 2.5% OPHTH SOL 2ML OS SCH (09:48)
[2023-09-02] MEDS: ATROPINE SULFATE 1% OPHTH SOLN 2ML BTL OS SCH (09:48)
[2023-09-02] MEDS: TROPICAMIDE 1% OPHTH SOLN 15ML OS SCH (09:48)
[2023-09-02] MEDS ORDERED: MIDAZOLAM INJ 2MG/2ML VIAL As Ordered ONE (10:35)
[2023-09-02] MEDS ORDERED: fentaNYL 100 MCG/2 ML INJECTION As Ordered ONE (10:35)
[2023-09-02] MEDS: LIDOCAINE 1% SDV 5ML VIAL As Ordered ONE (11:08)
[2023-09-02] MEDS: BSS IRRIG/VANCO(10MG)/TOBRA(5MG)/EPINEPH(1:1000-0.5CC)500ML BAG-ORONLY As Ordered ONE (11:08)
[2023-09-02] MEDS: CEFUROXIME 1MG/0.1ML INTRACAMERAL INJ As Ordered ONE (11:08)
[2023-09-02 11:22] VITALS: BP 133/85; TEMP 98.2; O2SAT 97
== END 2023-09-02 11:44 | disposition home or self-care (01) ==
LOC: M SDC 08:18
PROVIDERS: ATTEND Ophthalmology
DX: H25.12 Age-related nuclear cataract, left eye (principal); E78.5 Hyperlipidemia, unspecified; E03.9 Hypothyroidism, unspecified; K58.8 Other irritable bowel syndrome; Z88.2 Allergy status to sulfonamides; F90.9 Attention-deficit hyperactivity disorder, unspecified type; M79.7 Fibromyalgia; L40.9 Psoriasis, unspecified; F41.9 Anxiety disorder, unspecified; F32.A Depression, unspecified; G43.909 Migraine, unspecified, not intractable, without status migrainosus; Z79.899 Other long term (current) drug therapy; Z79.51 Long term (current) use of inhaled steroids
CPT/HCPCS: 66984; 92015; J0697; J2250; J3010; V2788

== ENCOUNTER 2023-11-12 07:08 | Day surgery (SDC) | payer MEDICARE, MEDICAID ==
[~2023-11-12] VITALS: Ht 167.6 cm; Wt 127.3 kg
[~2023-11-12 07:08] MED LIST changes: +AMPH1CAP4 PO; +APRE30TA3 PO; -BOTO200I; +BOTO200I SQ; +BUPR1TAB52 PO; +CETI-24 PO; +HYDR-4517 PO; +LINZ145C PO; -LINZ290C; -LIOT5TAB6; +MONT10TA97 PO; -PHENYLEPHRINE 10% OPHTH SOL 5ML OS PRN; +ZOLO100T PO
[2023-11-12] MEDS: NS 1,000 ML IV ONE (07:42)
[2023-11-12] MEDS ORDERED: propofoL 200 MG/20 ML VIAL As Ordered ONE (08:44)
[2023-11-12] MEDS ORDERED: fentaNYL 100 MCG/2 ML INJECTION As Ordered ONE (08:45)
[2023-11-12] MEDS ORDERED: GLYCOPYRROLATE INJ 0.2 MG/ML 2 ML VIAL As Ordered ONE (08:48)
[2023-11-12] MEDS ORDERED: LIDOCAINE 2% 100MG/5ML SDV (FOR ANES.) As Ordered ONE (08:48)
[2023-11-12 08:52] VITALS: TEMP 97
[2023-11-12 09:09] VITALS: BP 111/60; O2SAT 100
== END 2023-11-12 09:30 | disposition home or self-care (01) ==
LOC: M OPP 07:08
PROVIDERS: ATTEND Internal Medicine Gastroenterology
DX: Z86.010 Personal history of colon polyps (principal); D12.3 Benign neoplasm of transverse colon; D12.4 Benign neoplasm of descending colon; K64.8 Other hemorrhoids; Z79.51 Long term (current) use of inhaled steroids; Z79.891 Long term (current) use of opiate analgesic; Z79.899 Other long term (current) drug therapy
CPT/HCPCS: 45385; 88305; J1596; J3010

== ENCOUNTER → 2023-11-23 | Outpatient (CLI) | payer MEDICARE, MEDICAID | LOC: M RAD 14:30 | PROVIDERS: ATTEND Physician Assistant Medical | DX: R10.2 Pelvic and perineal pain (principal) ==

== ENCOUNTER → 2023-12-10 | Outpatient (CLI) | payer MEDICARE, MEDICAID ==
[2023-12-10 14:18] LABS: FOLLICLE STIMULATING HORMONE 76.6 mIU/ML
[2023-12-10 14:19] LABS: FREE T4 1.46 NG/DL (0.89-1.76); LUTEINIZING HORMONE 50.8 mIU/ML
[2023-12-10 14:21] LABS: THYROID STIMULATING HORMONE 0.67 uIU/ML (0.55-4.78)
== END ==
LOC: M RAD 12:31
PROVIDERS: ATTEND Physician Assistant Medical
DX: M25.532 Pain in left wrist (principal); N95.1 Menopausal and female climacteric states; Z79.899 Other long term (current) drug therapy

== ENCOUNTER → 2023-12-10 | Outpatient (CLI) | payer MEDICARE, MEDICAID ==
[2023-12-10 13:51] LABS: ALBUMIN 4.2 G/DL (3.2-5.2); ALKALINE PHOSPHATASE 84 U/L (46-116); ALT/SGPT 28 U/L (7.0-40); AST/SGOT 19 U/L (<34); BILIRUBIN,TOTAL 0.6 MG/DL (0.3-1.2); BLOOD UREA NITROGEN 10 MG/DL (9-23); CALCIUM LEVEL 9.2 MG/DL (8.5-10.1); CARBON DIOXIDE LEVEL 27 MMOL/L (20-31); CHLORIDE LEVEL 105 MMOL/L (98-107); CREATININE FOR GFR 0.77 MG/DL (0.55-1.30); GLOMERULAR FILTRATION RATE > 60.0 (>51); GLUCOSE, FASTING 88 MG/DL (60-100); POTASSIUM SERUM 4.3 MMOL/L (3.5-5.1); SODIUM LEVEL 136 MMOL/L (136-145)
[2023-12-11 12:09] LABS: % CD4+ LYMPHS 53.8 % (30.8-58.5); ABSOLUTE CD4 HELPER 1022 /uL (359-1519); BASOPHILS 1 % (Not Estab.); EOSINOPHILS 1 % (Not Estab.); EOSINOPHILS ABSOLUTE 0.1 x10E3/uL (0.0-0.4); HCT 44.2 % (34.0-46.6); HGB 14.7 g/dL (11.1-15.9); LYMPHOCYTES 35 % (Not Estab.); LYMPHOCYTES ABSOLUTE 1.9 x10E3/uL (0.7-3.1); MCH 30.2 pg (26.6-33.0); MCHC 33.3 g/dL (31.5-35.7); MCV 91 fL (79-97); MONOCYTES 9 % (Not Estab.); MONOCYTES ABSOLUTE 0.5 x10E3/uL (0.1-0.9); NEUTROPHILS 54 % (Not Estab.); PLT 266 x10E3/uL (150-450); RBC 4.86 x10E6/uL (3.77-5.28); RDW 12.7 % (11.7-15.4); WBC 5.6 x10E3/uL (3.4-10.8)
[2023-12-11 14:56] LABS: HIV-1 RNA PCR QUANT 2 NOT DETECTED copies/mL (NOT DETECTED); HIV-1 RNA PCR QUANT 3 NOT DETECTED (NOT DETECTED)
== END ==
LOC: M LAB 12:33
PROVIDERS: ATTEND Internal Medicine Infectious Disease
DX: B20 Human immunodeficiency virus [HIV] disease (principal)

== ENCOUNTER → 2024-02-17 | Outpatient (CLI) | payer MEDICARE, MEDICAID | LOC: M PLAIMG 10:11 | PROVIDERS: ATTEND Internal Medicine Infectious Disease | DX: J32.0 Chronic maxillary sinusitis (principal) ==

== ENCOUNTER → 2024-02-17 | Outpatient (REF) | payer MEDICARE, MEDICAID | LOC: M SFHCPLAZ 12:41 | PROVIDERS: ATTEND Physician Assistant Medical | DX: J01.80 Other acute sinusitis (principal) ==

== ENCOUNTER → 2024-04-12 | Outpatient (REF) | payer MEDICARE, MEDICAID ==
[2024-04-12 15:07] LABS: Trichomonas vaginalis (AMP) NOT DETECTED (NEGATIVE)
[2024-04-12 15:31] LABS: GC DNA AMPLIFICATION NEGATIVE (NEGATIVE)
[2024-04-15 15:53] LABS: HPV APTIMA Not Detected (Not Detected)
== END ==
LOC: M SFHCWAGY 12:48
PROVIDERS: ATTEND Nurse Practitioner Family
DX: Z12.4 Encounter for screening for malignant neoplasm of cervix (principal); N73.9 Female pelvic inflammatory disease, unspecified; B97.7 Papillomavirus as the cause of diseases classified elsewhere; R87.618 Other abnormal cytological findings on specimens from cervix uteri; Z11.3 Encounter for screening for infections with a predominantly sexual mode of transmission
CPT/HCPCS: 87070; 87624; 87661; 87810; 87850; G0123

== ENCOUNTER → 2024-04-12 | Outpatient (CLI) | payer MEDICARE, MEDICAID | LOC: M WHC 10:14 | PROVIDERS: ATTEND Nurse Practitioner Family | DX: Z12.31 Encounter for screening mammogram for malignant neoplasm of breast (principal); R92.323 Mammographic fibroglandular density, bilateral breasts ==

== ENCOUNTER → 2024-04-21 | Outpatient (CLI) | payer MEDICAID, MEDICARE ==
[~2024-04-21] MED LIST changes: +CLOB5CR TOP; +FLUO0.0119 TOP; +GENT1OI TOP; +ONDA-83 PO; +SYNT112T2 PO; +VENTAER INH; +fluconazole TOP
[2024-04-21 15:47] LABS: FREE T4 1.26 NG/DL (0.89-1.76)
[2024-04-21 15:48] LABS: THYROID STIMULATING HORMONE 0.724 uIU/ML (0.55-4.78); TOTAL T3 94.6 NG/DL (60.0-181.0)
[2024-04-21 15:55] LABS: HEMOGLOBIN A1c 5.1 % (4.0-6.0)
== END ==
LOC: M LAB 14:04
PROVIDERS: ATTEND Internal Medicine Endocrinology, Diabetes & Metabolism
DX: R63.5 Abnormal weight gain (principal)

== ENCOUNTER 2024-05-02 12:32 | Day surgery (SDC) | payer MEDICARE, MEDICAID ==
[~2024-05-02] VITALS: Ht 166.4 cm; Wt 130.6 kg
[2024-05-02] MEDS ORDERED: OXYM15SP2 (13:28)
[2024-05-02] MEDS ORDERED: PSEU30TA87 PO (13:28)
[2024-05-02] MEDS ORDERED: LIDOCAINE 2% 100MG/5ML SDV (FOR ANES.) As Ordered ONE (15:33)
[2024-05-02] MEDS ORDERED: propofoL 200 MG/20 ML VIAL As Ordered ONE (15:33)
[2024-05-02] MEDS ORDERED: MIDAZOLAM INJ 2MG/2ML VIAL As Ordered ONE (15:33)
[2024-05-02] MEDS ORDERED: fentaNYL 100 MCG/2 ML INJECTION As Ordered ONE (15:33)
[2024-05-02] MEDS ORDERED: ONDANSETRON 4MG 2ML VIAL As Ordered ONE (15:49)
[2024-05-02] MEDS: CIPRODEX OTIC SUSP 7.5ML As Ordered ONE (16:15)
[2024-05-02] MEDS ORDERED: NS (Normal Saline) 0.9% 1,000 ML IV SCH (16:35)
[2024-05-02] MEDS ORDERED: fentaNYL 100 MCG/2 ML INJECTION IV PRN (16:35)
[2024-05-02] MEDS ORDERED: ONDANSETRON 4MG 2ML VIAL IV PRN (16:35)
[2024-05-02] MEDS: oxyCODONE 5MG TAB PO PRN (16:44)
[2024-05-02] MEDS: HYDROMORPHONE HCL 0.5 MG/ 0.5 ML SYRINGE IV PRN (16:53)
[2024-05-02 17:35] VITALS: BP 148/79; TEMP 97.1; O2SAT 96
== END 2024-05-02 17:49 | disposition home or self-care (01) ==
LOC: M SDC 12:32
PROVIDERS: ATTEND Otolaryngology
DX: H69.83 Other specified disorders of Eustachian tube, bilateral (principal); E03.9 Hypothyroidism, unspecified; Z21 Asymptomatic human immunodeficiency virus [HIV] infection status; J45.909 Unspecified asthma, uncomplicated; E78.00 Pure hypercholesterolemia, unspecified; Z79.899 Other long term (current) drug therapy; Z79.890 Hormone replacement therapy; K58.9 Irritable bowel syndrome, unspecified; G43.909 Migraine, unspecified, not intractable, without status migrainosus; G51.0 Bell's palsy; F90.9 Attention-deficit hyperactivity disorder, unspecified type; Z88.8 Allergy status to other drugs, medicaments and biological substances; Z97.5 Presence of (intrauterine) contraceptive device
CPT/HCPCS: 69436; J1100; J1171; J2250; J2405; J3010

== ENCOUNTER → 2024-05-23 | Outpatient (REF) | payer MEDICARE, MEDICAID ==
[~2024-05-23] MED LIST changes: +CARI-555 PO; -CARI1TAB7 PO; +OXYM15SP2; +PSEU30TA87 PO
[2024-05-23 16:24] LABS: RSV AMPLIFICATION NEGATIVE (NEGATIVE)
== END ==
LOC: M SFHCWAGY 14:32
PROVIDERS: ATTEND Internal Medicine Infectious Disease
DX: J20.9 Acute bronchitis, unspecified (principal)

== ENCOUNTER → 2024-06-06 | Outpatient (CLI) | payer MEDICARE, MEDICAID ==
[2024-06-06 19:30] LABS: ALBUMIN 3.9 G/DL (3.2-5.2); ALKALINE PHOSPHATASE 113 U/L (35-104); ALT/SGPT 29 U/L (7.0-40); AST/SGOT 20 U/L (<34); BILIRUBIN,TOTAL 0.3 MG/DL (0.3-1.2); BLOOD UREA NITROGEN 13 MG/DL (9-23); CALCIUM LEVEL 9.2 MG/DL (8.5-10.1); CARBON DIOXIDE LEVEL 29 MMOL/L (20-31); CHLORIDE LEVEL 106 MMOL/L (98-107); CREATININE FOR GFR 0.65 MG/DL (0.55-1.30); GLOMERULAR FILTRATION RATE > 60.0 (>51); GLUCOSE, FASTING 59 MG/DL (60-100); POTASSIUM SERUM 4.5 MMOL/L (3.5-5.1); SODIUM LEVEL 142 MMOL/L (136-145); TOTAL PROTEIN 7.4 G/DL (5.7-8.2)
[2024-06-06 19:32] LABS: FREE T4 1.94 NG/DL (0.89-1.76); THYROID STIMULATING HORMONE 0.073 uIU/ML (0.55-4.78)
[2024-06-08 11:22] LABS: HIV-1 RNA PCR QUANT 2 NOT DETECTED copies/mL (NOT DETECTED); HIV-1 RNA PCR QUANT 3 NOT DETECTED (NOT DETECTED)
[2024-06-08 12:08] LABS: % CD4+ LYMPHS 54.2 % (30.8-58.5); ABSOLUTE CD4 HELPER 1572 /uL (359-1519); BASOPHILS 1 % (Not Estab.); BASOPHILS ABSOLUTE 0.1 x10E3/uL (0.0-0.2); EOSINOPHILS 2 % (Not Estab.); EOSINOPHILS ABSOLUTE 0.1 x10E3/uL (0.0-0.4); HGB 15.1 g/dL (11.1-15.9); Immature Grans 0 % (Not Estab.); LYMPHOCYTES 41 % (Not Estab.); LYMPHOCYTES ABSOLUTE 2.9 x10E3/uL (0.7-3.1); MCH 30.4 pg (26.6-33.0); MCHC 32.8 g/dL (31.5-35.7); MCV 93 fL (79-97); MONOCYTES 8 % (Not Estab.); MONOCYTES ABSOLUTE 0.6 x10E3/uL (0.1-0.9); NEUTROPHILS 48 % (Not Estab.); NEUTROPHILS ABSOLUTE 3.4 x10E3/uL (1.4-7.0); PLT 317 x10E3/uL (150-450); RBC 4.96 x10E6/uL (3.77-5.28); RDW 12.7 % (11.7-15.4)
== END ==
LOC: M PLALAB 16:37
PROVIDERS: ATTEND Internal Medicine Infectious Disease
DX: B20 Human immunodeficiency virus [HIV] disease (principal); E03.9 Hypothyroidism, unspecified

== ENCOUNTER → 2024-06-06 | Outpatient (CLI) | payer MEDICARE, MEDICAID | LOC: M PLAIMG 15:32 | PROVIDERS: ATTEND Psychiatry & Neurology Neurology | DX: G43.809 Other migraine, not intractable, without status migrainosus (principal); G43.701 Chronic migraine without aura, not intractable, with status migrainosus; E03.9 Hypothyroidism, unspecified; B20 Human immunodeficiency virus [HIV] disease ==

== ENCOUNTER → 2024-07-07 | Outpatient (CLI) | payer MEDICARE, MEDICAID ==
[~2024-07-07] MED LIST changes: -FLUO0.0118; -FLUO0.0119 TOP; +FLUO0.0126 TOP; +FLUO0.0131
== END ==
LOC: M SLEEP HO 11:47
PROVIDERS: ATTEND Physician Assistant Medical
DX: G47.33 Obstructive sleep apnea (adult) (pediatric) (principal)

== ENCOUNTER → 2024-10-21 | Outpatient (REF) | payer MEDICARE, OTHER ==
[~2024-10-21] MED LIST changes: -AMBI10TA PO; +BUPR-670 PO; -BUPR1TAB52 PO; -PREG50CA PO; +PREG50CA87 PO; +ZOLP-533 PO
[2024-10-21 21:10] LABS: APPEARANCE, URINE CLEAR (CLEAR); BACTERIA, URINE AUTO NEGATIVE (NEGATIVE); BILIRUBIN, URINE AUTO NEGATIVE (NEGATIVE); BLOOD, URINE BLOOD NEGATIVE (NEGATIVE); GLUCOSE, URINE (UA) AUTO NEGATIVE (NEGATIVE); KETONE, URINE AUTO NEGATIVE (NEGATIVE); LEUKOCYTE ESTERASE, URINE AUTO 1+ (NEGATIVE); NITRITE, URINE AUTO NEGATIVE (NEGATIVE); PROTEIN, URINE AUTO NEGATIVE (NEGATIVE); RBC, URINE AUTO 0 /HPF (0-3); SPECIFIC GRAVITY URINE AUTO 1.002 (1.002-1.035); SQUAMOUS EPITHELIAL CELL UR AU 0 /HPF (0-6); UROBILINOGEN, URINE AUTO 0.2 mg/dL (0.0-2.0); WBC, URINE AUTO 1 /HPF (0-3)
== END ==
LOC: M LAB REF 20:57
PROVIDERS: ATTEND Physician Assistant
DX: N39.0 Urinary tract infection, site not specified (principal)

== ENCOUNTER → 2024-10-25 | Outpatient (CLI) | payer MEDICARE, MEDICAID ==
[2024-10-25 16:10] LABS: BASO # 0.0 10^3/uL (0.0-0.2); BASO % 0.6 % (0.0-1.0); EOS # 0.0 10^3/uL (0.0-0.5); EOS % 0.8 % (0.0-3.0); LYMPH # 1.8 10^3/uL (1.5-5.0); LYMPH % 34.3 % (24.0-44.0); MONO # 0.4 10^3/uL (0.0-0.8); MONO % 7.2 % (2.0-8.0); NEUTROPHILS # 2.9 10^3/uL (1.5-8.5); NEUTROPHILS % 56.9 % (36.0-66.0); PLATELET COUNT, AUTOMATED 259 10^3/uL (150-450)
[2024-10-25 16:41] LABS: ALT/SGPT 19 U/L (7.0-40); AST/SGOT 21 U/L (<34); CALCIUM LEVEL 9.5 MG/DL (8.5-10.1); CARBON DIOXIDE LEVEL 29 MMOL/L (20-31); CHLORIDE LEVEL 103 MMOL/L (98-107); CHOLESTEROL LEVEL 207 MG/DL (<200); CHOLESTEROL RISK RATIO 4.83 (<5); CREATININE FOR GFR 0.71 MG/DL (0.55-1.30); GLOMERULAR FILTRATION RATE > 90.0 (>51); LDL CHOLESTEROL 97.8 MG/DL (<100); NON-HDL-C 164.2 MG/DL; POTASSIUM SERUM 4.6 MMOL/L (3.5-5.1); SODIUM LEVEL 143 MMOL/L (136-145); TRIGLYCERIDES LEVEL 332 MG/DL (<150)
[2024-10-25 17:29] LABS: ESTIMATED AVERAGE GLUCOSE 94.0 MG/DL (60-110)
[2024-10-25 17:34] LABS: FREE T4 2.00 NG/DL (0.89-1.76)
== END ==
LOC: M RAD 15:28
PROVIDERS: ATTEND Physician Assistant Medical
DX: N20.0 Calculus of kidney (principal); E78.00 Pure hypercholesterolemia, unspecified; Z68.42 Body mass index [BMI] 45.0-49.9, adult; Z97.5 Presence of (intrauterine) contraceptive device; Z79.899 Other long term (current) drug therapy

== ENCOUNTER → 2024-10-31 | Outpatient (CLI) | payer MEDICARE, MEDICAID ==
[~2024-10-31] MED LIST changes: +PROHANCE 279.3MG/ML 15ML VIAL ONE; +PROHANCE 279.3MG/ML 5ML VIAL ONE
== END ==
LOC: M PLAIMG 13:58
PROVIDERS: ATTEND Nurse Practitioner Family
DX: Z91.89 Other specified personal risk factors, not elsewhere classified (principal); R92.313 Mammographic fatty tissue density, bilateral breasts; R92.2 Inconclusive mammogram
CPT/HCPCS: A9576; C8908

== ENCOUNTER → 2024-12-02 | Outpatient (CLI) | payer MEDICARE, MEDICAID ==
[~2024-12-02] MED LIST changes: -PROHANCE 279.3MG/ML 15ML VIAL ONE; -PROHANCE 279.3MG/ML 5ML VIAL ONE
[2024-12-02 11:06] LABS: FREE T4 1.53 NG/DL (0.89-1.76)
== END ==
LOC: M LAB 09:40
PROVIDERS: ATTEND Physician Assistant Medical
DX: E03.9 Hypothyroidism, unspecified (principal)

== ENCOUNTER → 2025-03-13 | Outpatient (CLI) | payer MEDICARE, MEDICAID | LOC: M LAB 17:42 | PROVIDERS: ATTEND Internal Medicine Endocrinology, Diabetes & Metabolism | DX: E03.9 Hypothyroidism, unspecified (principal) ==

== ENCOUNTER → 2025-03-13 | Outpatient (CLI) | payer MEDICARE, MEDICAID ==
[2025-03-13 18:39] LABS: APPEARANCE, URINE HAZY (CLEAR); BACTERIA, URINE AUTO NEGATIVE (NEGATIVE); BILIRUBIN, URINE AUTO NEGATIVE (NEGATIVE); BLOOD, URINE BLOOD NEGATIVE (NEGATIVE); CALCIUM OXALATE CRYSTALS SMALL; GLUCOSE, URINE (UA) AUTO NEGATIVE (NEGATIVE); KETONE, URINE AUTO NEGATIVE (NEGATIVE); LEUKOCYTE ESTERASE, URINE AUTO NEGATIVE (NEGATIVE); NITRITE, URINE AUTO NEGATIVE (NEGATIVE); PROTEIN, URINE AUTO NEGATIVE (NEGATIVE); RBC, URINE AUTO 0 /HPF (0-3); SPECIFIC GRAVITY URINE AUTO 1.018 (1.002-1.035); SQUAMOUS EPITHELIAL CELL UR AU 0 /HPF (0-6); UROBILINOGEN, URINE AUTO 0.2 mg/dL (0.0-2.0); WBC, URINE AUTO 0 /HPF (0-3)
[2025-03-13 18:59] LABS: ALT/SGPT 17.0 U/L (7.0-40); AST/SGOT 14.0 U/L (<34); CALCIUM LEVEL 9.6 MG/DL (8.5-10.1); CARBON DIOXIDE LEVEL 28.0 MMOL/L (20-31); CHLORIDE LEVEL 102.0 MMOL/L (98-107); CREATININE FOR GFR 0.82 MG/DL (0.55-1.30); GLOMERULAR FILTRATION RATE 86.0 (>51); POTASSIUM SERUM 4.3 MMOL/L (3.5-5.1); SODIUM LEVEL 139.0 MMOL/L (136-145)
[2025-03-16 20:24] LABS: % CD4 58 % (30-61); %CD8 18 % (12-42); ABSOLUTE CD4 CELLS 1374 cells/uL (490-1740); ABSOLUTE CD8 CELLS 429 cells/uL (180-1170); ABSOLUTE LYMPHOCYTES 2386 cells/uL (850-3900); CD4 CD8 RATIO 3.20 (0.86-5.00)
[2025-03-17 12:17] LABS: HIV-1 RNA PCR QUANT 2 NOT DETECTED copies/mL (NOT DETECTED); HIV-1 RNA PCR QUANT 3 NOT DETECTED (NOT DETECTED)
== END ==
LOC: M LAB 17:41
PROVIDERS: ATTEND Internal Medicine Infectious Disease
DX: B20 Human immunodeficiency virus [HIV] disease (principal); E03.9 Hypothyroidism, unspecified